=== PATIENT | female | born 1945 | race Caucasian/White ===

== ENCOUNTER 2016-10-16 14:58 | Inpatient (IN) | payer OTHER ==
[~2016-10-16] VITALS: Ht 165.1 cm; Wt 86.1 kg
[~2016-10-16 14:58] MED LIST: CELE200C PO; CYCL10TA2 PO; FLUT16SP NS; HYDR-2758 PO; LISI40TA PO; SERT50TA PO
--- NOTE | 2016-10-16 16:11 | RAD ---
Nasal bone series 10/16/2016 Clinical history: Syncope. Fall on face. PA and bilateral lateral digital radiographs of the nasal bone were obtained. A slightly comminuted mildly depressed fracture of the distal nasal bone is seen. The maxillary sinuses are well aerated and are clear. The maxillary spine is intact. Impression: Comminuted fracture of the distal nasal bone.
--- NOTE | 2016-10-16 16:12 | RAD ---
Exam performed: One view chest and x-ray nasal bones. Indication: syncope Date of Service: 10/16/2016 5:34 PM Comparison: Two-view chest from 06/20/14. Single AP upright portable view chest findings: Cardiomediastinal silhouette is within limits of normal. No acute infiltrates, effusion or pneumothorax is detected. The bony structures are normal. Impression: No acute cardiopulmonary process is detected. End impression X-ray nasal bones findings: AP and lateral views of both nasal bones is performed. Minimally displaced fractures bilateral nasal bones, greater on the right. The bony orbital margins and the paranasal sinuses are clear. Impression: Minimally displaced bilateral nasal bone fractures.
[2016-10-16] MEDS ORDERED: MORPHINE SULFATE 4 MG/ML DISP.SYRIN. IM ONE ×2 (16:30→19:45)
[2016-10-16 16:38] LABS: BASO # 0.5 x10^3/uL (0.0-0.2); BASO % 0 % (0-3); EOS % 0 % (0-3); HEMATOCRIT 39.6 % (36.0-47.0); HEMOGLOBIN 12.5 g/dL (12.0-15.5); LYMPH # 91.4 x10^3/uL (1.0-4.8); MEAN CORPUSCULAR HEMOGLOBIN 30 pg (25-35); MEAN CORPUSCULAR HGB CONC 32 g/dL (31-37); MEAN CORPUSCULAR VOLUME 94 fL (79-100); MONO % 1 % (0-9); NEUT % 12 % (31-73); PLATELET COUNT 211 x10^3/uL (140-400); RED BLOOD COUNT 4.19 x10^6/uL (3.50-5.40); RED CELL DISTRIBUTION WIDTH 15.5 % (11.5-14.5)
[2016-10-16 16:47] LABS: WHITE BLOOD COUNT 105.5 x10^3/uL (4.0-11.0)
[2016-10-16 16:59] LABS: CREATININE 1.2 mg/dL (0.6-1.0); POTASSIUM 4.4 mmol/L (3.5-5.1)
[2016-10-16 17:16] LABS: PLT ESTIMATE ADEQUATE (ADEQUATE); SMUDGE CELLS PRESENT
--- NOTE | 2016-10-16 17:18 | PHYS DOC ---
Past Medical History Past Medical History: Anxiety, Cancer, Depression, High Cholesterol, Hypertension Additional Past Medical Histor: CLL Past Surgical History: Hysterectomy Additional Past Surgical Histo: bladder rx x 2, cyst removal- finger, R shoulder Alcohol Use: None Drug Use: None Adult General Chief Complaint Chief Complaint: SYNCOPE HPI HPI Patient is a 71 year old female who presents with complaints of syncopal episode. Patient complains of head pain and neck pain vital artery pain and pain in the nose and the lips. Patient has been having a headache that is similar to previous didn't have a not an exacerbation prior to syncopal episode , she also denied chest pain neck pain back pain or abdominal pain prior to falling. Patient has a history of leukemia but is not currently in treatment, her WBC has recently ranged from 80 to 90K. Patient has a history of previous syncopal episodes but has not had one for over a year. No recent illnesses no recent changes in medication. Pt not aware of having abnormal ekgs. Review of Systems Review of Systems Constitutional: Denies fever or chills [] Eyes: Denies change in visual acuity, redness, or eye pain [] HENT: Yes to head, neck,and nasal pain Respiratory: Denies cough or shortness of breath [] Cardiovascular: No additional information not addressed in HPI [] GI: Denies abdominal pain, nausea, vomiting, bloody stools or diarrhea [] : Denies dysuria or hematuria [] Musculoskeletal: Denies back pain or joint pain. Yesterday pain Integument: Denies rash or skin lesions [] Neurologic: Yes to headache. No focal weakness or sensory changes [] Endocrine: Denies polyuria or polydipsia [] Current Medications Current Medications Current Medications Medications (Trade) Dose Ordered Sig/[facility] Start Time Stop Time Status Last Admin Dose Admin Lidocaine/ Epinephrine (Let Topical) 3 ml 1X ONCE 10/16/16 18:15 10/16/16 18:16 DC Morphine Sulfate 2 mg 1X ONCE 10/16/16 18:15 10/16/16 18:17 DC 10/16/16 18:24 2 MG Ondansetron HCl (Zofran) 4 mg 1X ONCE 10/16/16 17:45 10/16/16 17:46 DC 10/16/16 17:44 4 MG Tetanus/ Diphtheria Toxoids (Tenivac Syringe) 0.5 ml ONCE ONCE 10/16/16 19:15 8/30/17 19:16 DC Allergies Allergies Allergies Coded Allergies Type Severity Reaction Last Updated Verified No Known Drug Allergies 07/01/14 No Physical Exam Physical Exam Constitutional: Well developed, well nourished, no acute distress, non-toxic appearance. [] HENT: Normocephalic, bilateral external ears normal, oropharynx moist, no oral exudates. No signs of basilar skull fracture. Swelling of the nose with superficial abrasion, no septal hematoma. Swelling of the upper lip with loss of tissue secondary to laceration. Eyes: PERRLA, EOMI, conjunctiva normal, no discharge. [] Neck: Normal range of motion, mild diffuse tenderness, supple, no stridor. [] Cardiovascular:Heart rate regular rhythm, no murmur, normal perfusion. Tenderness to palpation of the lower chest wall bilaterally Lungs & Thorax: Bilateral breath sounds clear to auscultation, no tachypnea Abdomen: Bowel sounds normal, soft, no tenderness, no masses, no pulsatile masses. [] Skin: Warm, dry, no erythema, no rash. [] Back: No tenderness, no CVA tenderness. [] Extremities: No tenderness, no cyanosis, no signs of DVT ROM intact, no edema. [ ] Neurologic: Alert and oriented X 3, normal motor function, no focal deficits noted. [] Psychologic: Affect normal, judgement normal, mood normal. [] Current Patient Data Vital Signs Vital Signs Date Time Temp Pulse Resp B/P (MAP) Pulse Ox O2 Delivery O2 Flow Rate FiO2 10/16/16 18:20 77 137/64 (88) Room Air 10/16/16 17:39 93 10/16/16 16:55 22 10/16/16 15:08 98.4 98.4 Lab Values Laboratory Tests Test 10/16/16 16:20 10/16/16 18:13 White Blood Count 105.5 x10^3/uL (4.0-11.0) *H Red Blood Count 4.19 x10^6/uL (3.50-5.40) Hemoglobin 12.5 g/dL (12.0-15.5) Hematocrit 39.6 % (36.0-47.0) Mean Corpuscular Volume 94 fL (79-100) Mean Corpuscular Hemoglobin 30 pg (25-35) Mean Corpuscular Hemoglobin Concent 32 g/dL (31-37) Red Cell Distribution Width 15.5 % (11.5-14.5) H Platelet Count 211 x10^3/uL (140-400) Neutrophils (%) (Auto) 12 % (31-73) L Lymphocytes (%) (Auto) 87 % (24-48) H Monocytes (%) (Auto) 1 % (0-9) Eosinophils (%) (Auto) 0 % (0-3) Basophils (%) (Auto) 0 % (0-3) Neutrophils # (Auto) 12.3 x10^3uL (1.8-7.7) H Lymphocytes # (Auto) 91.4 x10^3/uL (1.0-4.8) H Monocytes # (Auto) 1.2 x10^3/uL (0.0-1.1) H Eosinophils # (Auto) 0.2 x10^3/uL (0.0-0.7) Basophils # (Auto) 0.5 x10^3/uL (0.0-0.2) H Segmented Neutrophils % 10 % (35-66) L Band Neutrophils % 1 % (0-9) Lymphocytes % 89 % (24-48) H Smudge Cells Present Platelet Estimate Adequate (ADEQUATE) Sodium Level 140 mmol/L (136-145) Potassium Level 4.4 mmol/L (3.5-5.1) Chloride Level 105 mmol/L (98-107) Carbon Dioxide Level 25 mmol/L (21-32) Anion Gap 10 (6-14) Blood Urea Nitrogen 18 mg/dL (7-20) Creatinine 1.2 mg/dL (0.6-1.0) H Estimated GFR (Cockcroft-Gault) 44.0 Glucose Level 149 mg/dL (70-99) H Calcium Level 9.0 mg/dL (8.5-10.1) Troponin I Quantitative < 0.017 ng/mL (0.000-0.055) Urine Collection Type Unknown Urine Color Yellow Urine Clarity Clear Urine pH 5.0 Urine Specific [place] >=1.030 Urine Protein Negative mg/dL (NEG-TRACE) Urine Glucose (UA) Negative mg/dL (NEG) Urine Ketones (Stick) Negative mg/dL (NEG) Urine Blood Negative (NEG) Urine Nitrite Negative (NEG) Urine Bilirubin Small (NEG) Urine Urobilinogen Dipstick 0.2 mg/dL (0.2 mg/dL) Urine Leukocyte Esterase Small (NEG) Urine RBC 0 /HPF (0-2) Urine WBC 1-4 /HPF (0-4) Urine Squamous Epithelial Cells Few /LPF Urine Bacteria 0 /HPF (0-FEW) Urine Mucus Mod /LPF Laboratory Tests 10/16/16 16:20 Laboratory Tests 10/16/16 16:20 EKG EKG 1510 83, sinus rhythm, no STEMI, T-wave inversions V3 and V4 V5 [] Radiology/Procedures Radiology/Procedures [] Course & Med Decision Making Course & Med Decision Making Indication: Laceration over the bridge of nose and laceration of the upper lip Procedure: The patient was placed in the appropriate position and anesthesia around the wound was provided with L ET. The area was then CLEANSED/DEBRIDED, moderate irrigation. The laceration #1 at the nose was linear approximately 1 cm in length and closed with 2 sutures of 6 nylon. Laceration #2 is at the upper lip and he was in a regular in complicated laceration, it was complicated be because of loss of tissue and macerated tissue, 4 stitches were put in place The wound area was then cleaned. Total repaired wound length: 1 cm linear and one and 2 cm irregular Other Items: I have very extensive discussion with the patient regarding her upper lip laceration. I explained to the patient that I was unable to guarantee that there would be good alignment of the vermilion border and also could not be sure that the tissue that was used inrepair will survive. I explained to the patient that there was a high likelihood that she may need corrective plastic surgery at a later date. Patient states that she is not very concern about it as she only has 4 years to live but hope for the best at this time. The patient tolerated the procedure well Complications: No complications.Pertinent Labs and Imaging studies reviewed. ( See chart for details) Total time: 25 minutes. [] Dragon Disclaimer Dragon Disclaimer This electronic medical record was generated, in whole or in part, using a voice recognition dictation system. Departure Departure Impression: Primary Impression: Abnormal EKG Additional Impressions: Syncope Leukemia Facial laceration Nasal fracture Head injury Disposition: 09 ADMITTED INPATIENT Admitting Physician: Ling Acuna Condition: STABLE Referrals: ROLA PINTO MD (PCP) Problem Qualifiers Odell CLEMENT MD Oct 16, 2016 17:18
--- NOTE | 2016-10-16 17:28 | RAD ---
EXAM: Head and cervical spine CT without contrast. HISTORY: Syncope. TECHNIQUE: Computed tomographic images of the head and cervical spine were obtained without contrast. *One or more of the following individualized dose reduction techniques were utilized for this examination: 1. Automated exposure control. 2. Adjustment of the mA and/or kV according to patient size. 3. Use of iterative reconstruction technique. COMPARISON: None. FINDINGS: Head: There is no hemorrhage. There is no mass effect or midline shift. There is no hydrocephalus. There is mild age-appropriate cerebral volume loss. There are subtle areas of hypodensity within the cerebral white matter, a nonspecific finding likely due to chronic small vessel disease. There are findings consistent with lens surgery. There is mild ethmoid sinus mucosal thickening. There is a suspected posterior scalp contusion. No fracture is seen. Cervical spine: There is no significant listhesis. The vertebral bodies are normal in height and the disc spaces are preserved. There is facet arthropathy at the lower cervical levels. There are pathologically enlarged lymph nodes throughout the bilateral neck. At C2-C3, there is a posterior central disc protrusion. There is no stenosis. At C3-C4, there is a disc bulge. There is no stenosis. At C4-C5, there is a disc bulge. There is mild facet arthropathy. There is no stenosis. At C5-C6, there is a disc bulge and endplate remodeling. There is mild left facet arthropathy. There is no stenosis At C6-C7, there is a disc bulge. There is no stenosis. IMPRESSION: 1. No acute intracranial finding or evidence of acute cervical spine trauma. 2. Subtle areas of hypodensity within the cerebral white matter, likely due to chronic small vessel disease. 3. Mild degenerative changes of the cervical spine, described above. 4. Bilateral neck lymphadenopathy. Correlate for underlying etiologies such as lymphoma. 5. Possible posterior scalp contusion. Electronically signed by: Gladys Crawford MD (10/16/2016 5:25 PM) [facility]
[2016-10-16] MEDS ORDERED: ONDANSETRON PF 4 MG/2 ML VIAL. ONE (17:39)
[2016-10-16] MEDS ORDERED: ONDANSETRON PF 4 MG/2 ML VIAL. IV ONE (17:45)
[2016-10-16] MEDS ORDERED: MORPHINE SULFATE 2 MG/ML DISP.SYRIN. IV ONE (18:15)
[2016-10-16] MEDS ORDERED: LIDOCAINE/EPI/TETRACAINE TOPICAL GEL 3 ML. TP ONE ×2 (18:15)
[2016-10-16 18:28] LABS: BILIRUBIN,URINE SMALL (NEG); GLUCOSE,URINE NEGATIVE (NEG); NITRITE,URINE NEGATIVE (NEG); PROTEIN,URINE NEGATIVE (NEG-TRACE); UROBILINOGEN,URINE 0.2 mg/dL (0.2 mg/dL)
[2016-10-16 18:32] LABS: RBC,URINE 0 /HPF (0-2)
[2016-10-16 18:33] LABS: BACTERIA,URINE 0 /HPF (0-FEW); SQUAMOUS EPITHELIAL CELL,UR FEW /LPF
[2016-10-16] MEDS ORDERED: TETANUS AND DIPHTHERIA TOX/PF 0.5 ML DISP.SYRIN. VAX IM ONE (19:15)
[2016-10-16] MEDS ORDERED: ACETAMINOPHEN 325 MG TABLET. PO PRN (19:30)
[2016-10-16] MEDS ORDERED: MORPHINE SULFATE 2 MG/ML DISP.SYRIN. IV PRN (19:30)
[2016-10-16] MEDS ORDERED: ONDANSETRON PF 4 MG/2 ML VIAL. IV PRN (19:30)
[2016-10-16] MEDS ORDERED: MORPHINE SULFATE 4 MG/ML DISP.SYRIN. IV ONE ×2 (19:45)
[2016-10-16] MEDS ORDERED: SUMAtriptan SUCCINATE 25 MG TABLET PO PRN (21:15)
[2016-10-16] MEDS ORDERED: HYDROcodone/APAP 5/325MG 1 TAB TABLET PO PRN (21:15)
[2016-10-16 21:41] VITALS: BP 136/52
[2016-10-16] MEDS ORDERED: CYCLOBENZAPRINE 10 MG TABLET. PO PRN (22:15)
--- NOTE | 2016-10-16 22:43 | PDOC1 ---
History and Physical Date of Admission Date of Admission DATE: 10/16/16 TIME: 22:43 History of Present Illness History of Present Illness Ms. Barton is a 71 year old female who presents with complaints of syncopal episode. Patient complains of head pain and neck pain vital artery pain and pain in the nose and the lips. Patient has been having a headache that is similar to previous didn't have a not an exacerbation prior to syncopal episode , she also denied chest pain neck pain back pain or abdominal pain prior to falling. Patient has a history of leukemia but is not currently in treatment, her WBC has recently ranged from 80 to 90K. Patient has a history of previous syncopal episodes but has not had one for over a year. No recent illnesses no recent changes in medication. Pt not aware of having abnormal ekgs. Current Problem List Problem List Problems Medical Problems: (1) Abnormal EKG Status: Acute (2) Facial laceration Status: Acute (3) Head injury Status: Acute (4) Leukemia Status: Acute (5) Nasal fracture Status: Acute (6) Syncope Status: Acute Problems: Current Medications Current Medications Current Medications Morphine Sulfate 4 mg 1X ONCE IM Last administered on 10/16/16 16:55; Start 10/16/16 at 16:30; Stop 10/16/16 at 16:31; Status DC Ondansetron HCl (Zofran) 4 mg STK-MED ONCE .ROUTE ; Start 10/16/16 at 17:39; Stop 10/16/16 at 17:40; Status DC Ondansetron HCl (Zofran) 4 mg 1X ONCE IV Last administered on 10/16/16 17:44 ; Start 10/16/16 at 17:45; Stop 10/16/16 at 17:46; Status DC Lidocaine/ Epinephrine (Let Topical) 3 ml 1X ONCE TP Last administered on 10/16 18:22; Start 10/16/16 at 18:15; Stop 10/16/16 at 18:16; Status DC Lidocaine/ Epinephrine (Let Topical) 3 ml 1X ONCE TP ; Start 10/16/16 at 18:15 ; Stop 10/16/16 at 18:16; Status DC Morphine Sulfate 2 mg 1X ONCE IV Last administered on 10/16/16 18:24; Start 10/16/16 at 18:15; Stop 10/16/16 at 18:17; Status DC Tetanus/ Diphtheria Toxoids (Tenivac Syringe) 0.5 ml ONCE ONCE VAX IM Last administered on 10/16/16 19:51; Start 10/16/16 at 19:15; Stop 10/16/16 at 19:16 ; Status DC Ondansetron HCl (Zofran) 4 mg PRN Q8HRS PRN IV NAUSEA/VOMITING; Start 10/16/16 at 19:30; Stop 10/17/16 at 19:29 Morphine Sulfate 2 mg PRN Q2HR PRN IV PAIN; Start 10/16/16 at 19:30; Stop 10/17 at 19:29 Acetaminophen (Tylenol) 650 mg PRN Q4HRS PRN PO FEVER; Start 10/16/16 at 19:30 ; Stop 10/17/16 at 19:29 Morphine Sulfate 4 mg 1X ONCE IM ; Start 10/16/16 at 19:45; Stop 10/16/16 at 19 :46; Status DC Morphine Sulfate 4 mg 1X ONCE IV Last administered on 10/16/16 19:49; Start 10/16/16 at 19:45; Stop 10/16/16 at 19:46; Status DC Morphine Sulfate 4 mg 1X ONCE IV ; Start 10/16/16 at 19:45; Stop 10/16/16 at 19 :46; Status DC Celecoxib (CeleBREX) 200 mg DAILY PO ; Start 10/17/16 at 09:00 Cyclobenzaprine HCl (Flexeril) 10 mg TID PO ; Start 10/16/16 at 22:00 Fluticasone Propionate (Flonase) 1 spray DAILY NS ; Start 10/17/16 at 09:00 Acetaminophen/ Hydrocodone Bitart (Lortab 5/325) 1 tab PRN Q4HRS PRN PO SEVERE PAIN; Start 10/16/16 at 21:15 Lisinopril (Prinivil) 40 mg DAILY PO ; Start 10/17/16 at 09:00 Sertraline HCl (Zoloft) 50 mg DAILY PO ; Start 10/17/16 at 09:00 Sumatriptan Succinate (Imitrex) 25 mg PRN Q2HR PRN PO MIGRAINE HEADACHE; Start 10/16/16 at 21:15 Cyclobenzaprine HCl (Flexeril) 10 mg PRN Q6HRS PRN PO MUSCLE SPASMS; Start at 22:15; Status UNV Active Scripts Active Reported Zoloft (Sertraline Hcl) 50 Mg Tablet 50 Mg PO DAILY Lisinopril 40 Mg Tablet 40 Mg PO DAILY Hydrocodone-Apap 5-325 (Hydrocodone Bit/Acetaminophen) 1 Each Tablet 1 Tab PO Q4HRS PRN Fluticasone Propionate Nasal [place] (Fluticasone Propionate) 16 Gm [place].susp 1 [place] NS DAILY Cyclobenzaprine Hcl 10 Mg Tablet 10 Mg PO TID Celebrex (Celecoxib) 200 Mg Capsule 200 Mg PO DAILY 30 Days Allergies Allergies: Coded Allergies: No Known Drug Allergies (Unverified , 07/01/14) Vitals Vitals Vital Signs Date Time Temp Pulse Resp B/P (MAP) Pulse Ox O2 Delivery O2 Flow Rate FiO2 10/16/16 21:49 Room Air 10/16/16 21:41 99.3 86 20 136/52 (80) 100 99.3 10/16/16 20:57 2.0 Labs Labs Laboratory Tests Test 10/16/16 16:20 10/16/16 18:13 White Blood Count 105.5 x10^3/uL (4.0-11.0) Red Blood Count 4.19 x10^6/uL (3.50-5.40) Hemoglobin 12.5 g/dL (12.0-15.5) Hematocrit 39.6 % (36.0-47.0) Mean Corpuscular Volume 94 fL (79-100) Mean Corpuscular Hemoglobin 30 pg (25-35) Mean Corpuscular Hemoglobin Concent 32 g/dL (31-37) Red Cell Distribution Width 15.5 % (11.5-14.5) Platelet Count 211 x10^3/uL (140-400) Neutrophils (%) (Auto) 12 % (31-73) Lymphocytes (%) (Auto) 87 % (24-48) Monocytes (%) (Auto) 1 % (0-9) Eosinophils (%) (Auto) 0 % (0-3) Basophils (%) (Auto) 0 % (0-3) Neutrophils # (Auto) 12.3 x10^3uL (1.8-7.7) Lymphocytes # (Auto) 91.4 x10^3/uL (1.0-4.8) Monocytes # (Auto) 1.2 x10^3/uL (0.0-1.1) Eosinophils # (Auto) 0.2 x10^3/uL (0.0-0.7) Basophils # (Auto) 0.5 x10^3/uL (0.0-0.2) Segmented Neutrophils % 10 % (35-66) Band Neutrophils % 1 % (0-9) Lymphocytes % 89 % (24-48) Smudge Cells Present Platelet Estimate Adequate (ADEQUATE) Sodium Level 140 mmol/L (136-145) Potassium Level 4.4 mmol/L (3.5-5.1) Chloride Level 105 mmol/L (98-107) Carbon Dioxide Level 25 mmol/L (21-32) Anion Gap 10 (6-14) Blood Urea Nitrogen 18 mg/dL (7-20) Creatinine 1.2 mg/dL (0.6-1.0) Estimated GFR (Cockcroft-Gault) 44.0 Glucose Level 149 mg/dL (70-99) Calcium Level 9.0 mg/dL (8.5-10.1) Troponin I Quantitative < 0.017 ng/mL (0.000-0.055) Urine Collection Type Unknown Urine Color Yellow Urine Clarity Clear Urine pH 5.0 Urine Specific [place] >=1.030 Urine Protein Negative mg/dL (NEG-TRACE) Urine Glucose (UA) Negative mg/dL (NEG) Urine Ketones (Stick) Negative mg/dL (NEG) Urine Blood Negative (NEG) Urine Nitrite Negative (NEG) Urine Bilirubin Small (NEG) Urine Urobilinogen Dipstick 0.2 mg/dL (0.2 mg/dL) Urine Leukocyte Esterase Small (NEG) Urine RBC 0 /HPF (0-2) Urine WBC 1-4 /HPF (0-4) Urine Squamous Epithelial Cells Few /LPF Urine Bacteria 0 /HPF (0-FEW) Urine Mucus Mod /LPF Laboratory Tests Test 10/16/16 16:20 10/16/16 18:13 White Blood Count 105.5 x10^3/uL (4.0-11.0) Red Blood Count 4.19 x10^6/uL (3.50-5.40) Hemoglobin 12.5 g/dL (12.0-15.5) Hematocrit 39.6 % (36.0-47.0) Mean Corpuscular Volume 94 fL (79-100) Mean Corpuscular Hemoglobin 30 pg (25-35) Mean Corpuscular Hemoglobin Concent 32 g/dL (31-37) Red Cell Distribution Width 15.5 % (11.5-14.5) Platelet Count 211 x10^3/uL (140-400) Neutrophils (%) (Auto) 12 % (31-73) Lymphocytes (%) (Auto) 87 % (24-48) Monocytes (%) (Auto) 1 % (0-9) Eosinophils (%) (Auto) 0 % (0-3) Basophils (%) (Auto) 0 % (0-3) Neutrophils # (Auto) 12.3 x10^3uL (1.8-7.7) Lymphocytes # (Auto) 91.4 x10^3/uL (1.0-4.8) Monocytes # (Auto) 1.2 x10^3/uL (0.0-1.1) Eosinophils # (Auto) 0.2 x10^3/uL (0.0-0.7) Basophils # (Auto) 0.5 x10^3/uL (0.0-0.2) Segmented Neutrophils % 10 % (35-66) Band Neutrophils % 1 % (0-9) Lymphocytes % 89 % (24-48) Smudge Cells Present Platelet Estimate Adequate (ADEQUATE) Sodium Level 140 mmol/L (136-145) Potassium Level 4.4 mmol/L (3.5-5.1) Chloride Level 105 mmol/L (98-107) Carbon Dioxide Level 25 mmol/L (21-32) Anion Gap 10 (6-14) Blood Urea Nitrogen 18 mg/dL (7-20) Creatinine 1.2 mg/dL (0.6-1.0) Estimated GFR (Cockcroft-Gault) 44.0 Glucose Level 149 mg/dL (70-99) Calcium Level 9.0 mg/dL (8.5-10.1) Troponin I Quantitative < 0.017 ng/mL (0.000-0.055) Urine Collection Type Unknown Urine Color Yellow Urine Clarity Clear Urine pH 5.0 Urine Specific [place] >=1.030 Urine Protein Negative mg/dL (NEG-TRACE) Urine Glucose (UA) Negative mg/dL (NEG) Urine Ketones (Stick) Negative mg/dL (NEG) Urine Blood Negative (NEG) Urine Nitrite Negative (NEG) Urine Bilirubin Small (NEG) Urine Urobilinogen Dipstick 0.2 mg/dL (0.2 mg/dL) Urine Leukocyte Esterase Small (NEG) Urine RBC 0 /HPF (0-2) Urine WBC 1-4 /HPF (0-4) Urine Squamous Epithelial Cells Few /LPF Urine Bacteria 0 /HPF (0-FEW) Urine Mucus Mod /LPF BLAKE VERA MD Oct 16, 2016 22:43
[2016-10-16] MEDS: CYCLOBENZAPRINE 10 MG TABLET. PO SCH (23:24)
[2016-10-16] MEDS ORDERED: AMLO10TA2 PO (23:26)
[2016-10-17 01:49] LABS: CALCIUM 8.5 mg/dL (8.5-10.1); CREATININE 1.3 mg/dL (0.6-1.0); GFR 40.2; POTASSIUM 3.8 mmol/L (3.5-5.1)
[2016-10-17 02:07] LABS: BASO # 0.2 x10^3/uL (0.0-0.2); BASO % 0 % (0-3); EOS % 0 % (0-3); HEMATOCRIT 37.9 % (36.0-47.0); HEMOGLOBIN 11.8 g/dL (12.0-15.5); LYMPH # 98.7 x10^3/uL (1.0-4.8); LYMPH % 89 % (24-48); MEAN CORPUSCULAR HEMOGLOBIN 30 pg (25-35); MEAN CORPUSCULAR HGB CONC 31 g/dL (31-37); MEAN CORPUSCULAR VOLUME 95 fL (79-100); MONO % 2 % (0-9); NEUT % 9 % (31-73); PLATELET COUNT 197 x10^3/uL (140-400); RED BLOOD COUNT 3.98 x10^6/uL (3.50-5.40); RED CELL DISTRIBUTION WIDTH 15.5 % (11.5-14.5)
[2016-10-17 03:06] VITALS: BP 108/56
--- NOTE | 2016-10-17 03:59 | ACF ---
Admission Forms Criteria CARDIOLOGY GRG Clinical Indications for Admission to Inpatient Care ( [place]/check or initial the applicable condition/criteria) Hospital admission is needed for appropriate care of the patient because of ANY ONE of the following: [ ] I. Hemodynamic instability as indicated by ALL of the following (1)(2)(3) (4)(5)(6)(7)(8)(9)(10) [ ]a) Vital sign abnormality not readily corrected by appropriate treatment with 12-24 hours for ANY ONE: [ ]i) Hypotension that persists despite appropriate treatment (eg, volume repletion) [ ]ii) Tachycardiathat persists despite appropriate tx ( e.g., analgesia, fluids, sedation as indicated [ ]iii) Orthostatic vital sign changes that persists despite appropriate treatment (eg, volume repletion) [ ]b) Vital sign abnormailty that is severe indicated by ANY ONE of the following: [ ]i) Inadequate perfusion indicated by ANY ONE of the following: [ ] 1) Lactic acidosis (> 2 mmol/L) [ ] 2) New abnormal capillary refill (> 3 seconds) [ ] 3) Reduced urine output [ ] 4) New altered mental status [ ] 5) Myocardial Ischemia [ ] 6) Other metabolic acidosis (arterial pH <7.35 ) not otherwise explained. [ ]ii) Mean arterial pressure[A] less than 60 mm Hg [ ]iii) Mean arterial pressure[A] less than 70 mm Hg after 30 minutes of appropriate treatment (eg, fluid resuscitation) [ ]iv) Sustained heart rate greater than 120 beats per minute in adult or child 6 years or older[B] [ ]v) IV inotropic or vasopressor medication required to maintain adequate blood pressure or perfusion [ ] II. Severe heart failure as indicated by ANY ONE of the following(17)(18) [ ]a) Respiratory distress [ ]b) Hypotension [ ]c) Debilitating anasarca refractory to therapy (eg, tissue breakdown with infection)[C](19) [ ]d) Cardiac arrhythmias of immediate concern [ ]e) Myocardial ischemia [ ] III. Cardiac arrhythmias or findings of immediate concern indicated by ANY ONE of the following (21)(22): [ ] a) Heart rhythms that are inherently dangerous or unstable indicated by ANY ONE of the following (23)(24)(25): [ ] i) Resuscitated ventricular fibrillation or cardiac arrest [ ] ii) Ventricular escape rhythm [ ] iii) Sustained ventricular tachycardia (30 seconds or more of ventricular rhythm at greater than 100 beats per minute) [ ] iv) Nonsustained ventricular tachycardia and ANY ONE of the following: [ ] 1) Suspected cardiac ischemia as cause or consequence of ventricular tachycardia [ ] 2) Acute myocarditis [ ] b) Unstable cardiac conduction defects indicated by ANY ONE of the following(25)(26)(27) [ ] i) Type II second-degree atrioventricular block [ ]ii) Third-degree atrioventricular block [ ]iii) New-onset left bundle branch block with suspected myocardial ischemia [ ]c) Any heart rhythm and ANY ONE of the following (23)(24)(28)(29) (30) [ ] i) Continuous long-term ECG monitoring needed (e.g., initiation of drug requiring monitoring for more than 24 hours) [ ] ii) Patient has automatic implanted cardioverter defibrillator that is repeatedly firing, malfunctioning, or in need of immediate adjustment of settings beyond the scope of ambulatory or observation care [ ]d) Heart rhythms of concern due to ANY ONE of the following: [ ] i) Hypotension [ ] ii) Respiratory distress [ ] iii) Association with other significant symptoms (e.g., bradycardia with syncope or ongoing dizziness, supraventricular tachycardia with chest pain (28)(29)(31) [ ] IV. Monitoring for cardiac contusion beyond the scope of observation care needed [A](32)(33)(34) [ ] V. Surgical or device complication (e.g., valve replacement complication , ICD disfunction or pacemaker dysfunction) (49)(50)(51)(52)(53)(54) [ ] . Inpatient palliative care needed. [F](51)(52) Also use Inpatient Palliative Care Criteria [ ] VII. Nonbacterial thrombotic (marantic) endocarditis(43)(44)(55)(56)(57) [X] VIII. Cardiology condition, symptom, or finding for which emergency and observation care has failed or are not considered appropriate. [ ] IX. Acute valvular disease requiring inpatient as indicated by ANY ONE of the following (40)(41) [ ]a) Acute valvular regurgitation (42) [ ]b) Noninfectious valvulitis (43)(44) [ ]c) Obstructive valve thrombosis (45)(46) [ ]d) Paravalvular leak(47)(48) [ ]e) Other significant valvular disorder remaining after emergency or observation level of care (as appropriate) [ ]X. Pericardial disease requiring inpatient treatment as indicated by ANY ONE of the following (35)(36)(37)(38) [ ]a) Suspected tamponade [ ]b) Hemopericardium [ ]c) Other significant pericardial disorder remaining after emergency or observation level of care (as appropriate)(39) [ ] XI. Cardiac ischemia beyond scope of emergency and observation care. [ ] XII. Cyanotic heart disease requiring inpatient care as indicated by 1 or more of the following(58)(59)(60): [ ]a) Acute onset of hypoxemia [ ]b) Exacerbation [ ] XIII. Hypertension requiring inpatient treatment as indicated by ANYONE of the following(11)(12)(13)(14): [ ]a) Severe hypertension (SBP greater than 180 mm Hg or DBP greater than 110 mm Hg, or greater than the 95th percentile for age, gender, and height in pediatric patients) that cannot be controlled (eg, to SBP less than 160 mm Hg and DBP less than 100 mm Hg) by emergency department or observation care treatment(15) [ ]b) Acute end organ damage secondary to hypertension (SBP greater than 140 mm Hg or DBP greater than 90 mm Hg) as indicated by ANYONE of the following: [ ] i) Hypertensive encephalopathy (eg, Altered mental status)(16) [ ] ii) Cerebral infarction [ ] iii) Intracranial hemorrhage [ ] iv) Myocardial ischemia or infarction [ ] v) Heart failure (eg, pulmonary edema) [ ] vi) Aortic dissection [ ] vii) Increased creatinine (new) with reduction of more than 50% in estimated glomerular filtration rate from baseline [ ] viii) Papilledema [ ] ix) Retinal hemorrhage [ ] x) Microangiopathic hemolytic anemia [ ] xi) Seizure [ ] xii) Other significant finding secondary to hypertension [ ] XIV. Complications of transplanted heart indicated by ANY ONE of the following(61): [ ]a) Acute graft rejection requiring inpatient management (eg, intravenous imunosuppression)(62)(63) [ ]b) Acute graft heart failure indicated by ANY ONE of the following(64): [ ] i) Hemodynamic instability [ ] ii) Cardiac arrhythmias of immediate concern [ ] iii) Pulmonary edema that is very severe (eg, mechanical ventilation needed, imminent or likely, need for 100% oxygen to keep oxygen saturation above 90%) [ ] iv) Pulmonary edema that is persistent as indicated by ALL of the following: [ ] 1) New need for oxygen therapy to keep oxygen saturation above 90 % (or increased FiO2 need from baseline) [ ] 2) Has not improved sufficiently with emergency department or observation care IV diuretics or other heart failure treatments[E]. [ ] iv) Altered mental status that is severe or persistent [ ] iv) Increased creatinine (new on laboratory test) with reduction of more than 50% in estimated glomerular filtration rate from baseline [ ] iv) Progressively (ongoing) rising creatinine (known from past laboratory test) with reduction of more than 25% in estimated glomerular filtration rate from baseline [ ] iv) Acute renal failure [ ] iv) Acute peripheral ischemia (eg, examination shows pulseless, cool, mottled, or cyanotic extremity) [ ] iv) Pulmonary artery catheter monitoring needed [ ] iv) Other sign or symptom of heart failure requiring inpatient treatment (ie, too severe or not responsive to outpatient and observation care treatment) [ ]c) Infection requiring inpatient management (eg, Hemodynamic instability, need for intravenous antimicrobial treatment)(66)(67)(68)(69)(70) [ ]d) Cardiac allograft vasculopathy requiring inpatient management (eg evidence of cardiacischemia)(71) [ ]e) Other complication of transplanted heart (eg, stroke, severe pulmonary hypertension, severe valvular dysfunction) requiring inpatient management(72) The original [facility] content created by [facility] has been revised. The portions of the content which have been revised are identified through the use of italic text, and [facility] has neither reviewed nor approved the modified material. All other unmodified content is copyright [facility]. Please see references footnoted in the original [facility] edition 2014 Admission Criteria Met?: Yes DARNELL IRELAND Oct 17, 2016 03:59
[2016-10-17 04:30] LABS: WHITE BLOOD COUNT 111.1 x10^3/uL (4.0-11.0)
[2016-10-17 07:00] VITALS: BP 122/61
--- NOTE | 2016-10-17 08:11 | RAD ---
Exam performed: Single view chest and[ bilateral] rib series. History: [Patient fell today, syncopal episode,. Bilateral chest Date of service:[ 10/16/16] . Comparison: [None available]. Findings: AP and oblique radiographs of [ bilateral] ribs reveal the osseous structures to be well aligned and apparently intact. Evidence of fracture is absent. There is no pleural effusion or pneumothorax. As visualized, the underlying pulmonary anatomy appears unremarkable. Impression: Radiographically normal ribs.
--- NOTE | 2016-10-17 08:34 | EKG ---
[facility] [address] [place] [address] Test Date: 2016-10-16 Test Time: 15:09:14 Pat Name: JOSELIN TEJEDA Department: Room: 586 1 Gender: F Research And Development Manager: : 1945 Requested By: BRANDO DANIEL Order Number: [id number] Reading MD: Panda Cabrera Measurements Intervals [place] Rate: 83 P: 22 KS: 148 QRS: -1 QRSD: 74 T: -21 QT: 346 QTc: 407 Interpretive Statements SINUS RHYTHM NON-SPECIFIC ST/T CHANGES Electronically Signed On 10-22-2016 8:36:58 CDT by Panda Cabrera
[2016-10-17] MEDS: FLUTICASONE 50MCG/NASAL SPRAY 16GM BOTTLE. NS SCH (09:00)
[2016-10-17] MEDS ORDERED: DOCUSATE SODIUM 100 MG CAPSULE. PO PRN (09:15)
[2016-10-17] MEDS ORDERED: hydrALAZINE 20 MG/ML VIAL. IVP PRN (09:15)
[2016-10-17] MEDS ORDERED: MORPHINE SULFATE 2 MG/ML DISP.SYRIN. IV PRN (09:15)
[2016-10-17] MEDS ORDERED: traMADol 50 MG TABLET PO PRN (09:15)
[2016-10-17] MEDS ORDERED: ACETAMINOPHEN 325 MG TABLET. PO PRN (09:15)
[2016-10-17] MEDS ORDERED: ONDANSETRON PF 4 MG/2 ML VIAL. IV PRN (09:15)
--- NOTE | 2016-10-17 09:45 | RAD ---
Exam performed: Carotid Doppler. Clinical indication: Syncope Date of Service: 10/17/16. Comparison :No priors. Technique: Real-time grayscale and Doppler evaluation of the carotid system was performed and images are obtained. Color flow and spectral analysis was observed. Findings: There is mild atheromatous plaquing involving both carotid bulbs . Doppler interrogation reveals normal waveforms and velocities as follows . Peak systolic velocity within the right common carotid artery measures 132.0 cm/sec whereas on the left measures 154.0 cm/sec . The peak systolic velocity within the right ICA measures 138.0 cm/sec whereas on the left measures 109.0 cm/sec. The ICA to CCA ratio on the right measures 1.1 whereas on the left measures 0.7. There is antegrade flow in both vertebral arteries. Mildly elevated peak systolic velocities are seen in the right external carotid artery Impression: 1.Mild atheromatous plaquing involving both carotid systems without any flow-limiting stenosis. Note: Stenosis calculations for CT, MR and conventional angiography are based upon determination of the distal ICA diameter in accordance with the NASCET methodology. Stenosis calculations for doppler studies are derived from validated velocity criteria which are known to correlate with NASCET methodology of determining stenosis.
[2016-10-17] MEDS: LISINOPRIL 40 MG TABLET. PO SCH (09:54)
[2016-10-17] MEDS: CELECOXIB 200 MG CAPSULE. PO SCH (09:55)
[2016-10-17] MEDS: CYCLOBENZAPRINE 10 MG TABLET. PO SCH ×3 (09:55→20:36)
[2016-10-17] MEDS: SERTRALINE 50 MG TABLET. PO SCH (09:55)
[2016-10-17 10:45] LABS: LYMPH % 87 % (24-48)
[2016-10-17 11:00] VITALS: BP 123/53
--- NOTE | 2016-10-17 11:40 | PDOC2 ---
CARDIAC CONSULT DATE OF CONSULT Date of Consult DATE: 10/17/16 TIME: 11:33 REASON FOR CONSULT Reason for Consult: Syncope Abnormal EKG REFERRING PHYSICIAN Referring Physician: Dr. Butts SOURCE Source: Chart review, Patient HISTORY OF PRESENT ILLNESS HISTORY OF PRESENT ILLNESS This is a 71 yo female who presented secondary to syncopal episode. Patient reports having diarrhea the last couple of days. Yesterday afternoon, was doing dishes and felt nauseated. Headed to the bathroom and started to have vision changes. Started seeing black spots and subsequently passed out, sustaining laceration to upper lip and nose. Denies any associated chest pain, palpitations , diaphoresis, or nausea/vomiting. Evaluated in ED. Had multiple sutures to lip and bridge of nose. Xray notable for nasal fracture. Patient does report h/o "blackout" with at least 4 episodes in the last year. Telemetry review noted episodes of pauses and complete heart block. PAST MEDICAL HISTORY Cardiovascular: HTN, Hyperlipidemia Pulmonary: Asthma GI: Diverticulosis Heme/Onc: Other (CLL) Hepatobiliary: No pertinent hx Psych: Anxiety Musculoskeletal: Osteoarthritis Rheumatologic: No pertinent hx Infectious disease: No pertinent hx ENT: No pertinent hx Renal/: No pertinent hx Endocrine: Diabetes Dermatology: No pertinent hx PAST SURGICAL HISTORY Past Surgical History: Cataract Removal, Tonsillectomy, Hysterectomy FAMILY HISTORY Family History: Cancer, Diabetes, Heart Disease, Hypertension SOCIAL HISTORY Smoke: No ALCOHOL: none Drugs: None Lives: with Family CURRENT MEDICATIONS CURRENT MEDICATIONS Current Medications Medications (Trade) Dose Ordered Sig/Naldo Route PRN Reason Start Time Stop Time Status Last Admin Dose Admin Morphine Sulfate 4 mg 1X ONCE IM 10/16/16 16:30 10/16/16 16:31 DC 10/16/16 16:55 Ondansetron HCl (Zofran) 4 mg 1X ONCE IV 10/16/16 17:45 10/16/16 17:46 DC 10/16/16 17:44 Lidocaine/ Epinephrine (Let Topical) 3 ml 1X ONCE TP 10/16/16 18:15 10/16/16 18:16 DC 10/16/16 18:22 Morphine Sulfate 2 mg 1X ONCE IV 10/16/16 18:15 10/16/16 18:17 DC 10/16/16 18:24 Tetanus/ Diphtheria Toxoids (Tenivac Syringe) 0.5 ml ONCE ONCE VAX IM 10/16/16 19:15 10/16/16 19:16 DC 10/16/16 19:51 Morphine Sulfate 2 mg PRN Q2HR PRN IV PAIN 10/16/16 19:30 10/17/16 19:29 10/17/16 04:56 Morphine Sulfate 4 mg 1X ONCE IV 10/16/16 19:45 10/16/16 19:46 DC 10/16/16 19:49 Celecoxib (CeleBREX) 200 mg DAILY PO 10/17/16 09:00 10/17/16 09:55 Cyclobenzaprine HCl (Flexeril) 10 mg TID PO 10/16/16 22:00 10/17/16 09:55 Fluticasone Propionate (Flonase) 1 spray DAILY NS 10/17/16 09:00 10/17/16 09:00 Lisinopril (Prinivil) 40 mg DAILY PO 10/17/16 09:00 10/17/16 09:54 Sertraline HCl (Zoloft) 50 mg DAILY PO 10/17/16 09:00 10/17/16 09:55 ALLERGIES ALLERGIES: Coded Allergies: No Known Drug Allergies (Unverified , 07/01/14) ROS Review of System 14 point ROS conducted with pertinent positives noted above in HPI. PHYSICAL EXAM General: Alert, Oriented X3, Cooperative, No acute distress HEENT: Other (laceration to upper lip and bridge of nose) Lungs: Clear to auscultation, Normal air movement Heart: Regular rate, Normal S1, Normal S2, Other (tele SR) Abdomen: Soft, No tenderness Extremities: No edema, Normal pulses Skin: No breakdown, No significant lesion Neuro: Normal speech, Sensation intact Psych/Mental Status: Mental status NL, Mood NL MUSCULOSKELETAL: Osteoarthritic changes both hands VITALS VITALS Vital Signs Date Time Temp Pulse Resp B/P (MAP) Pulse Ox O2 Delivery O2 Flow Rate FiO2 10/17/16 11:00 97.8 69 18 123/53 (76) 95 Nasal Cannula 2.0 97.8 LABS Lab: Laboratory Tests Test 10/16/16 16:20 10/16/16 18:13 10/17/16 01:25 10/17/16 03:40 White Blood Count 105.5 x10^3/uL (4.0-11.0) 111.1 x10^3/uL (4.0-11.0) Red Blood Count 4.19 x10^6/uL (3.50-5.40) 3.98 x10^6/uL (3.50-5.40) Hemoglobin 12.5 g/dL (12.0-15.5) 11.8 g/dL (12.0-15.5) Hematocrit 39.6 % (36.0-47.0) 37.9 % (36.0-47.0) Mean Corpuscular Volume 94 fL (79-100) 95 fL (79-100) Mean Corpuscular Hemoglobin 30 pg (25-35) 30 pg (25-35) Mean Corpuscular Hemoglobin Concent 32 g/dL (31-37) 31 g/dL (31-37) Red Cell Distribution Width 15.5 % (11.5-14.5) 15.5 % (11.5-14.5) Platelet Count 211 x10^3/uL (140-400) 197 x10^3/uL (140-400) Neutrophils (%) (Auto) 12 % (31-73) 9 % (31-73) Lymphocytes (%) (Auto) 87 % (24-48) 89 % (24-48) Monocytes (%) (Auto) 1 % (0-9) 2 % (0-9) Eosinophils (%) (Auto) 0 % (0-3) 0 % (0-3) Basophils (%) (Auto) 0 % (0-3) 0 % (0-3) Neutrophils # (Auto) 12.3 x10^3uL (1.8-7.7) 10.2 x10^3uL (1.8-7.7) Lymphocytes # (Auto) 91.4 x10^3/uL (1.0-4.8) 98.7 x10^3/uL (1.0-4.8) Monocytes # (Auto) 1.2 x10^3/uL (0.0-1.1) 1.9 x10^3/uL (0.0-1.1) Eosinophils # (Auto) 0.2 x10^3/uL (0.0-0.7) 0.2 x10^3/uL (0.0-0.7) Basophils # (Auto) 0.5 x10^3/uL (0.0-0.2) 0.2 x10^3/uL (0.0-0.2) Segmented Neutrophils % 10 % (35-66) Band Neutrophils % 1 % (0-9) Lymphocytes % 89 % (24-48) Smudge Cells Present Platelet Estimate Adequate (ADEQUATE) Sodium Level 140 mmol/L (136-145) 141 mmol/L (136-145) Potassium Level 4.4 mmol/L (3.5-5.1) 3.8 mmol/L (3.5-5.1) Chloride Level 105 mmol/L (98-107) 105 mmol/L (98-107) Carbon Dioxide Level 25 mmol/L (21-32) 26 mmol/L (21-32) Anion Gap 10 (6-14) 10 (6-14) Blood Urea Nitrogen 18 mg/dL (7-20) 19 mg/dL (7-20) Creatinine 1.2 mg/dL (0.6-1.0) 1.3 mg/dL (0.6-1.0) Estimated GFR (Cockcroft-Gault) 44.0 40.2 Glucose Level 149 mg/dL (70-99) 126 mg/dL (70-99) Calcium Level 9.0 mg/dL (8.5-10.1) 8.5 mg/dL (8.5-10.1) Troponin I Quantitative < 0.017 ng/mL (0.000-0.055) < 0.017 ng/mL (0.000-0.055) Urine Collection Type Unknown Urine Color Yellow Urine Clarity Clear Urine pH 5.0 Urine Specific [place] >=1.030 Urine Protein Negative mg/dL (NEG-TRACE) Urine Glucose (UA) Negative mg/dL (NEG) Urine Ketones (Stick) Negative mg/dL (NEG) Urine Blood Negative (NEG) Urine Nitrite Negative (NEG) Urine Bilirubin Small (NEG) Urine Urobilinogen Dipstick 0.2 mg/dL (0.2 mg/dL) Urine Leukocyte Esterase Small (NEG) Urine RBC 0 /HPF (0-2) Urine WBC 1-4 /HPF (0-4) Urine Squamous Epithelial Cells Few /LPF Urine Bacteria 0 /HPF (0-FEW) Urine Mucus Mod /LPF Test 10/17/16 07:43 Troponin I Quantitative < 0.017 ng/mL (0.000-0.055) ASSESSMENT/PLAN ASSESSMENT/PLAN 1. Syncope; review of telemetry noted intermittent high grade block. Presently maintaining SR 2. Hypertension; well controlled 3. Hyperlipidemia; check lipids 4. CLL 5. Nasal fracture Recommendations check echo to assess LV function/ rule out structural abnormalities Transfer to CVC Given symptomatic high grade block, would recommend PPM. R/b/a discussed with patient and is agreeable. Will proceed with device implantation in am. MUKESH ALCALA. Problems: MILTON JACINTO APRN Oct 17, 2016 11:40
[2016-10-17] MEDS: LIDOCAINE (700MG/PATCH) PATCH. TD SCH (12:09)
--- NOTE | 2016-10-17 13:23 | PDOC ---
PROGRESS NOTES Chief Complaint Chief Complaint syncope, recurrent facial trauma laceration with syncope commuted distal nasal bone fx CLL ,WBC baseline 90k htn hld depression anxiety chronic diarrhea CKD 3 plan: fu with dr. Kavon alejandro, and neuro, onco wbc stable as per onco cont home meds check US carotid A, ok check orthostatic BP PTOT dvt ppx check cdiff History of Present Illness History of Present Illness ROS: no fever, chills, sob or chest pain feels ok, said " blacked out" at home at the sink Vitals Vitals Vital Signs Date Time Temp Pulse Resp B/P (MAP) Pulse Ox O2 Delivery O2 Flow Rate FiO2 10/17/16 11:00 97.8 69 18 123/53 (76) 95 Nasal Cannula 2.0 97.8 Physical Exam Physical Exam nose fx wound, facial laceration with stiches General: Alert, Oriented X3, Cooperative Heart: Regular rate, Normal S1, Normal S2 Lungs: Clear Abdomen: Normal bowel sounds, Soft Extremities: No clubbing, No cyanosis Skin: No rashes Labs LABS Laboratory Tests Test 10/16/16 16:20 10/16/16 18:13 10/17/16 01:25 10/17/16 03:40 White Blood Count 105.5 x10^3/uL (4.0-11.0) 111.1 x10^3/uL (4.0-11.0) Red Blood Count 4.19 x10^6/uL (3.50-5.40) 3.98 x10^6/uL (3.50-5.40) Hemoglobin 12.5 g/dL (12.0-15.5) 11.8 g/dL (12.0-15.5) Hematocrit 39.6 % (36.0-47.0) 37.9 % (36.0-47.0) Mean Corpuscular Volume 94 fL (79-100) 95 fL (79-100) Mean Corpuscular Hemoglobin 30 pg (25-35) 30 pg (25-35) Mean Corpuscular Hemoglobin Concent 32 g/dL (31-37) 31 g/dL (31-37) Red Cell Distribution Width 15.5 % (11.5-14.5) 15.5 % (11.5-14.5) Platelet Count 211 x10^3/uL (140-400) 197 x10^3/uL (140-400) Neutrophils (%) (Auto) 12 % (31-73) 9 % (31-73) Lymphocytes (%) (Auto) 87 % (24-48) 89 % (24-48) Monocytes (%) (Auto) 1 % (0-9) 2 % (0-9) Eosinophils (%) (Auto) 0 % (0-3) 0 % (0-3) Basophils (%) (Auto) 0 % (0-3) 0 % (0-3) Neutrophils # (Auto) 12.3 x10^3uL (1.8-7.7) 10.2 x10^3uL (1.8-7.7) Lymphocytes # (Auto) 91.4 x10^3/uL (1.0-4.8) 98.7 x10^3/uL (1.0-4.8) Monocytes # (Auto) 1.2 x10^3/uL (0.0-1.1) 1.9 x10^3/uL (0.0-1.1) Eosinophils # (Auto) 0.2 x10^3/uL (0.0-0.7) 0.2 x10^3/uL (0.0-0.7) Basophils # (Auto) 0.5 x10^3/uL (0.0-0.2) 0.2 x10^3/uL (0.0-0.2) Segmented Neutrophils % 10 % (35-66) Band Neutrophils % 1 % (0-9) Lymphocytes % 89 % (24-48) Smudge Cells Present Platelet Estimate Adequate (ADEQUATE) Sodium Level 140 mmol/L (136-145) 141 mmol/L (136-145) Potassium Level 4.4 mmol/L (3.5-5.1) 3.8 mmol/L (3.5-5.1) Chloride Level 105 mmol/L (98-107) 105 mmol/L (98-107) Carbon Dioxide Level 25 mmol/L (21-32) 26 mmol/L (21-32) Anion Gap 10 (6-14) 10 (6-14) Blood Urea Nitrogen 18 mg/dL (7-20) 19 mg/dL (7-20) Creatinine 1.2 mg/dL (0.6-1.0) 1.3 mg/dL (0.6-1.0) Estimated GFR (Cockcroft-Gault) 44.0 40.2 Glucose Level 149 mg/dL (70-99) 126 mg/dL (70-99) Calcium Level 9.0 mg/dL (8.5-10.1) 8.5 mg/dL (8.5-10.1) Troponin I Quantitative < 0.017 ng/mL (0.000-0.055) < 0.017 ng/mL (0.000-0.055) Urine Collection Type Unknown Urine Color Yellow Urine Clarity Clear Urine pH 5.0 Urine Specific [place] >=1.030 Urine Protein Negative mg/dL (NEG-TRACE) Urine Glucose (UA) Negative mg/dL (NEG) Urine Ketones (Stick) Negative mg/dL (NEG) Urine Blood Negative (NEG) Urine Nitrite Negative (NEG) Urine Bilirubin Small (NEG) Urine Urobilinogen Dipstick 0.2 mg/dL (0.2 mg/dL) Urine Leukocyte Esterase Small (NEG) Urine RBC 0 /HPF (0-2) Urine WBC 1-4 /HPF (0-4) Urine Squamous Epithelial Cells Few /LPF Urine Bacteria 0 /HPF (0-FEW) Urine Mucus Mod /LPF Test 10/17/16 07:43 Troponin I Quantitative < 0.017 ng/mL (0.000-0.055) Assessment and Plan Assessmemt and Plan Problems Medical Problems: (1) Abnormal EKG Status: Acute (2) Facial laceration Status: Acute (3) Head injury Status: Acute (4) Leukemia Status: Acute (5) Nasal fracture Status: Acute (6) Syncope Status: Acute Problems: Comment Review of Relevant I have reviewed the following items darek (where applicable) has been applied. Labs Laboratory Tests Test 10/16/16 16:20 10/16/16 18:13 10/17/16 01:25 10/17/16 03:40 White Blood Count 105.5 x10^3/uL (4.0-11.0) 111.1 x10^3/uL (4.0-11.0) Red Blood Count 4.19 x10^6/uL (3.50-5.40) 3.98 x10^6/uL (3.50-5.40) Hemoglobin 12.5 g/dL (12.0-15.5) 11.8 g/dL (12.0-15.5) Hematocrit 39.6 % (36.0-47.0) 37.9 % (36.0-47.0) Mean Corpuscular Volume 94 fL (79-100) 95 fL (79-100) Mean Corpuscular Hemoglobin 30 pg (25-35) 30 pg (25-35) Mean Corpuscular Hemoglobin Concent 32 g/dL (31-37) 31 g/dL (31-37) Red Cell Distribution Width 15.5 % (11.5-14.5) 15.5 % (11.5-14.5) Platelet Count 211 x10^3/uL (140-400) 197 x10^3/uL (140-400) Neutrophils (%) (Auto) 12 % (31-73) 9 % (31-73) Lymphocytes (%) (Auto) 87 % (24-48) 89 % (24-48) Monocytes (%) (Auto) 1 % (0-9) 2 % (0-9) Eosinophils (%) (Auto) 0 % (0-3) 0 % (0-3) Basophils (%) (Auto) 0 % (0-3) 0 % (0-3) Neutrophils # (Auto) 12.3 x10^3uL (1.8-7.7) 10.2 x10^3uL (1.8-7.7) Lymphocytes # (Auto) 91.4 x10^3/uL (1.0-4.8) 98.7 x10^3/uL (1.0-4.8) Monocytes # (Auto) 1.2 x10^3/uL (0.0-1.1) 1.9 x10^3/uL (0.0-1.1) Eosinophils # (Auto) 0.2 x10^3/uL (0.0-0.7) 0.2 x10^3/uL (0.0-0.7) Basophils # (Auto) 0.5 x10^3/uL (0.0-0.2) 0.2 x10^3/uL (0.0-0.2) Segmented Neutrophils % 10 % (35-66) Band Neutrophils % 1 % (0-9) Lymphocytes % 89 % (24-48) Smudge Cells Present Platelet Estimate Adequate (ADEQUATE) Sodium Level 140 mmol/L (136-145) 141 mmol/L (136-145) Potassium Level 4.4 mmol/L (3.5-5.1) 3.8 mmol/L (3.5-5.1) Chloride Level 105 mmol/L (98-107) 105 mmol/L (98-107) Carbon Dioxide Level 25 mmol/L (21-32) 26 mmol/L (21-32) Anion Gap 10 (6-14) 10 (6-14) Blood Urea Nitrogen 18 mg/dL (7-20) 19 mg/dL (7-20) Creatinine 1.2 mg/dL (0.6-1.0) 1.3 mg/dL (0.6-1.0) Estimated GFR (Cockcroft-Gault) 44.0 40.2 Glucose Level 149 mg/dL (70-99) 126 mg/dL (70-99) Calcium Level 9.0 mg/dL (8.5-10.1) 8.5 mg/dL (8.5-10.1) Troponin I Quantitative < 0.017 ng/mL (0.000-0.055) < 0.017 ng/mL (0.000-0.055) Urine Collection Type Unknown Urine Color Yellow Urine Clarity Clear Urine pH 5.0 Urine Specific [place] >=1.030 Urine Protein Negative mg/dL (NEG-TRACE) Urine Glucose (UA) Negative mg/dL (NEG) Urine Ketones (Stick) Negative mg/dL (NEG) Urine Blood Negative (NEG) Urine Nitrite Negative (NEG) Urine Bilirubin Small (NEG) Urine Urobilinogen Dipstick 0.2 mg/dL (0.2 mg/dL) Urine Leukocyte Esterase Small (NEG) Urine RBC 0 /HPF (0-2) Urine WBC 1-4 /HPF (0-4) Urine Squamous Epithelial Cells Few /LPF Urine Bacteria 0 /HPF (0-FEW) Urine Mucus Mod /LPF Test 10/17/16 07:43 Troponin I Quantitative < 0.017 ng/mL (0.000-0.055) Laboratory Tests Test 10/16/16 16:20 10/16/16 18:13 10/17/16 01:25 10/17/16 03:40 White Blood Count 105.5 x10^3/uL (4.0-11.0) 111.1 x10^3/uL (4.0-11.0) Red Blood Count 4.19 x10^6/uL (3.50-5.40) 3.98 x10^6/uL (3.50-5.40) Hemoglobin 12.5 g/dL (12.0-15.5) 11.8 g/dL (12.0-15.5) Hematocrit 39.6 % (36.0-47.0) 37.9 % (36.0-47.0) Mean Corpuscular Volume 94 fL (79-100) 95 fL (79-100) Mean Corpuscular Hemoglobin 30 pg (25-35) 30 pg (25-35) Mean Corpuscular Hemoglobin Concent 32 g/dL (31-37) 31 g/dL (31-37) Red Cell Distribution Width 15.5 % (11.5-14.5) 15.5 % (11.5-14.5) Platelet Count 211 x10^3/uL (140-400) 197 x10^3/uL (140-400) Neutrophils (%) (Auto) 12 % (31-73) 9 % (31-73) Lymphocytes (%) (Auto) 87 % (24-48) 89 % (24-48) Monocytes (%) (Auto) 1 % (0-9) 2 % (0-9) Eosinophils (%) (Auto) 0 % (0-3) 0 % (0-3) Basophils (%) (Auto) 0 % (0-3) 0 % (0-3) Neutrophils # (Auto) 12.3 x10^3uL (1.8-7.7) 10.2 x10^3uL (1.8-7.7) Lymphocytes # (Auto) 91.4 x10^3/uL (1.0-4.8) 98.7 x10^3/uL (1.0-4.8) Monocytes # (Auto) 1.2 x10^3/uL (0.0-1.1) 1.9 x10^3/uL (0.0-1.1) Eosinophils # (Auto) 0.2 x10^3/uL (0.0-0.7) 0.2 x10^3/uL (0.0-0.7) Basophils # (Auto) 0.5 x10^3/uL (0.0-0.2) 0.2 x10^3/uL (0.0-0.2) Segmented Neutrophils % 10 % (35-66) Band Neutrophils % 1 % (0-9) Lymphocytes % 89 % (24-48) Smudge Cells Present Platelet Estimate Adequate (ADEQUATE) Sodium Level 140 mmol/L (136-145) 141 mmol/L (136-145) Potassium Level 4.4 mmol/L (3.5-5.1) 3.8 mmol/L (3.5-5.1) Chloride Level 105 mmol/L (98-107) 105 mmol/L (98-107) Carbon Dioxide Level 25 mmol/L (21-32) 26 mmol/L (21-32) Anion Gap 10 (6-14) 10 (6-14) Blood Urea Nitrogen 18 mg/dL (7-20) 19 mg/dL (7-20) Creatinine 1.2 mg/dL (0.6-1.0) 1.3 mg/dL (0.6-1.0) Estimated GFR (Cockcroft-Gault) 44.0 40.2 Glucose Level 149 mg/dL (70-99) 126 mg/dL (70-99) Calcium Level 9.0 mg/dL (8.5-10.1) 8.5 mg/dL (8.5-10.1) Troponin I Quantitative < 0.017 ng/mL (0.000-0.055) < 0.017 ng/mL (0.000-0.055) Urine Collection Type Unknown Urine Color Yellow Urine Clarity Clear Urine pH 5.0 Urine Specific [place] >=1.030 Urine Protein Negative mg/dL (NEG-TRACE) Urine Glucose (UA) Negative mg/dL (NEG) Urine Ketones (Stick) Negative mg/dL (NEG) Urine Blood Negative (NEG) Urine Nitrite Negative (NEG) Urine Bilirubin Small (NEG) Urine Urobilinogen Dipstick 0.2 mg/dL (0.2 mg/dL) Urine Leukocyte Esterase Small (NEG) Urine RBC 0 /HPF (0-2) Urine WBC 1-4 /HPF (0-4) Urine Squamous Epithelial Cells Few /LPF Urine Bacteria 0 /HPF (0-FEW) Urine Mucus Mod /LPF Test 10/17/16 07:43 Troponin I Quantitative < 0.017 ng/mL (0.000-0.055) Medications Current Medications Morphine Sulfate 4 mg 1X ONCE IM Last administered on 10/16/16 16:55; Start 10/16/16 at 16:30; Stop 10/16/16 at 16:31; Status DC Ondansetron HCl (Zofran) 4 mg STK-MED ONCE .ROUTE ; Start 10/16/16 at 17:39; Stop 10/16/16 at 17:40; Status DC Ondansetron HCl (Zofran) 4 mg 1X ONCE IV Last administered on 10/16/16 17:44 ; Start 10/16/16 at 17:45; Stop 10/16/16 at 17:46; Status DC Lidocaine/ Epinephrine (Let Topical) 3 ml 1X ONCE TP Last administered on 10/16 18:22; Start 10/16/16 at 18:15; Stop 10/16/16 at 18:16; Status DC Lidocaine/ Epinephrine (Let Topical) 3 ml 1X ONCE TP ; Start 10/16/16 at 18:15 ; Stop 10/16/16 at 18:16; Status DC Morphine Sulfate 2 mg 1X ONCE IV Last administered on 10/16/16 18:24; Start 10/16/16 at 18:15; Stop 10/16/16 at 18:17; Status DC Tetanus/ Diphtheria Toxoids (Tenivac Syringe) 0.5 ml ONCE ONCE VAX IM Last administered on 10/16/16 19:51; Start 10/16/16 at 19:15; Stop 10/16/16 at 19:16 ; Status DC Ondansetron HCl (Zofran) 4 mg PRN Q8HRS PRN IV NAUSEA/VOMITING; Start 10/16/16 at 19:30; Stop 10/17/16 at 19:29 Morphine Sulfate 2 mg PRN Q2HR PRN IV PAIN Last administered on 10/17/16 04:56 ; Start 10/16/16 at 19:30; Stop 10/17/16 at 19:29 Acetaminophen (Tylenol) 650 mg PRN Q4HRS PRN PO FEVER; Start 10/16/16 at 19:30 ; Stop 10/17/16 at 19:29 Morphine Sulfate 4 mg 1X ONCE IM ; Start 10/16/16 at 19:45; Stop 10/16/16 at 19 :46; Status DC Morphine Sulfate 4 mg 1X ONCE IV Last administered on 10/16/16 19:49; Start 10/16/16 at 19:45; Stop 10/16/16 at 19:46; Status DC Morphine Sulfate 4 mg 1X ONCE IV ; Start 10/16/16 at 19:45; Stop 10/16/16 at 19 :46; Status DC Celecoxib (CeleBREX) 200 mg DAILY PO Last administered on 10/17/16 09:55; Start 10/17/16 at 09:00 Cyclobenzaprine HCl (Flexeril) 10 mg TID PO Last administered on 10/17/16 09: 55; Start 10/16/16 at 22:00 Fluticasone Propionate (Flonase) 1 spray DAILY NS Last administered on 09:00; Start 10/17/16 at 09:00 Acetaminophen/ Hydrocodone Bitart (Lortab 5/325) 1 tab PRN Q4HRS PRN PO SEVERE PAIN; Start 10/16/16 at 21:15 Lisinopril (Prinivil) 40 mg DAILY PO Last administered on 10/17/16 09:54; Start 10/17/16 at 09:00 Sertraline HCl (Zoloft) 50 mg DAILY PO Last administered on 10/17/16 09:55; Start 10/17/16 at 09:00 Sumatriptan Succinate (Imitrex) 25 mg PRN Q2HR PRN PO MIGRAINE HEADACHE; Start 10/16/16 at 21:15 Cyclobenzaprine HCl (Flexeril) 10 mg PRN Q6HRS PRN PO MUSCLE SPASMS/NTE 60MG/ 24HRS; Start 10/16/16 at 22:15 Acetaminophen (Tylenol) 650 mg PRN Q6HRS PRN PO FEVER; Start 10/17/16 at 09:15 Ondansetron HCl (Zofran) 4 mg PRN Q6HRS PRN IV NAUSEA/VOMITING; Start 10/17/16 at 09:15 Morphine Sulfate 2 mg PRN Q2HR PRN IV PAIN; Start 10/17/16 at 09:15 Tramadol HCl (Ultram) 50 mg PRN Q6HRS PRN PO PAIN; Start 10/17/16 at 09:15 Hydralazine HCl (Apresoline) 10 mg PRN Q4HRS PRN IVP ELEVATED BP, SEE COMMENTS ; Start 10/17/16 at 09:15 Docusate Sodium (Colace) 100 mg PRN DAILY PRN PO CONSTIPATION; Start 10/17/16 at 09:15 Lidocaine (Lidoderm) 1 patch DAILY TD Last administered on 10/17/16t 12:09; Start 10/17/16 at 11:30 Active Scripts Active Reported Amlodipine Besylate 10 Mg Tablet 10 Mg PO DAILY Zoloft (Sertraline Hcl) 50 Mg Tablet 50 Mg PO DAILY Lisinopril 40 Mg Tablet 40 Mg PO DAILY Hydrocodone-Apap 5-325 (Hydrocodone Bit/Acetaminophen) 1 Each Tablet 1 Tab PO Q4HRS PRN Fluticasone Propionate Nasal [place] (Fluticasone Propionate) 16 Gm [place].susp 1 [place] NS DAILY Cyclobenzaprine Hcl 10 Mg Tablet 10 Mg PO TID Celebrex (Celecoxib) 200 Mg Capsule 200 Mg PO DAILY 30 Days Vitals/I & O Vital Sign - Last 24 Hours 10/16/16 10/16/16 10/16/16 10/16/16 15:08 15:44 16:02 16:44 Temp 98.4 98.4 Pulse 87 81 82 80 Resp 22 20 B/P (MAP) 126/62 (83) 138/57 (84) 136/63 (87) 122/59 (80) Pulse Ox 97 97 96 O2 Delivery Room Air Room Air Room Air Room Air 10/16/16 10/16/16 10/16/16 10/16/16 16:55 17:24 17:39 18:20 Pulse 81 77 77 Resp 22 B/P (MAP) 118/56 (76) 134/63 (86) 137/64 (88) Pulse Ox 96 93 O2 Delivery Room Air Room Air Room Air Room Air 10/16/16 10/16/16 10/16/16 10/16/16 19:49 19:58 20:30 20:57 Pulse 74 76 74 Resp 16 18 16 16 B/P (MAP) 137/64 (88) 124/72 (89) 122/70 (87) Pulse Ox 91 92 86 96 O2 Delivery Room Air Room Air Room Air Nasal Cannula O2 Flow Rate 2.0 10/16/16 10/16/16 10/17/16 10/17/16 21:41 21:49 03:06 04:56 Temp 99.3 99.7 99.3 99.7 Pulse 86 82 Resp 20 20 B/P (MAP) 136/52 (80) 108/56 (73) Pulse Ox 100 91 91 O2 Delivery Room Air Room Air Room Air Room Air O2 Flow Rate 2.0 10/17/16 10/17/16 10/17/16 07:00 09:54 11:00 Temp 99.1 97.8 99.1 97.8 Pulse 73 73 69 Resp 18 18 B/P (MAP) 122/61 (81) 122/61 123/53 (76) Pulse Ox 91 95 O2 Delivery Nasal Cannula Nasal Cannula O2 Flow Rate 2.0 2.0 Intake and Output 10/17/16 10/17/16 10/18/16 15:00 23:00 07:00 Intake Total 180 ml Balance 180 ml BRANDO DANIEL MD Oct 17, 2016 13:23
[2016-10-17 15:00] VITALS: BP 114/53
--- NOTE | 2016-10-17 16:12 | CARD ---
APPROVED REPORT EXAM: Two-dimensional and M-mode echocardiogram with Doppler and color Doppler. Other Information Quality : GoodHR: 61bpm Rhythm : NSR INDICATION Abnormal ECG Syncope RISK FACTORS Hypertension 2D DIMENSIONS RVDd2.9 (2.9-3.5cm)Left Atrium(2D)4.0 (1.6-4.0cm) IVSd0.9 (0.7-1.1cm)Aortic Root(2D)2.7 (2.0-3.7cm) LVDd3.9 (3.9-5.9cm)LVOT Diameter1.8 (1.8-2.4cm) PWd0.9 (0.7-1.1cm)LVDs2.6 (2.5-4.0cm) FS (%) 34.2 %SV42.8 ml Aortic Valve AoV Peak Celso.124.1cm/sAoV VTI27.8cm AO Peak GR.6.2mmHgLVOT Peak [place].115.8cm/s AO Mean GR.3mmHgAVA (VMAX)2.48cm2 Mitral Valve MV E Wionsqmg410.0cm/sMV E Peak Gr.6mmHg MV DECEL [id number] A Jttgqoyc47.8cm/s MV E Mean Gr.2mmHgE/A Ratio1.5 MV A [id number] Pulmonary Valve PV Peak Upjxkemb766.4cm/s Tricuspid Valve TR P. [id number]/sTR Peak Gr.27mmHg Pulmonary Vein S1 Dyiujfnz05.7cm/sD2 Qdaajrbv32.1cm/s PVa [id number] LEFT VENTRICLE The left ventricle is normal size. There is normal left ventricular wall thickness. The left ventricu lar systolic function is normal and the ejection fraction is within normal range. The Ejection Fracti on is 55-60%. There is normal LV segmental wall motion. The left ventricular diastolic function and f illing is normal for age. RIGHT VENTRICLE The right ventricle is normal size. There is normal right ventricular wall thickness. The right ventr icular systolic function is normal. ATRIA The left atrium size is normal. The right atrium size is normal. The interatrial septum is intact wit h no evidence for an atrial septal defect or patent foramen ovale as noted on 2-D or Doppler imaging. AORTIC VALVE The aortic valve is mildly thickened. The aortic valve is trileaflet. Doppler and Color Flow revealed trace aortic regurgitation. There is no significant aortic valvular stenosis. MITRAL VALVE The mitral valve leaflets are mildly thickened. There is no evidence of mitral valve prolapse. There is no mitral valve stenosis. Doppler and Color Flow revealed trace mitral regurgitation. TRICUSPID VALVE Doppler and Color Flow revealed mild tricuspid regurgitation. The pulmonary artery systolic pressure is estimated at 30 mmHg. PULMONIC VALVE The pulmonary valve is not well visualized but appears to open adequately. Doppler and Color Flow rev ealed no pulmonic valvular regurgitation. There is no pulmonic valvular stenosis by spectral Doppler. GREAT VESSELS The aortic root is normal in size. The ascending aorta is normal in size. The pulmonary artery is nor mal. The IVC was obscured, unable to assess. PERICARDIAL EFFUSION There is no evidence of significant pericardial effusion. Critical Notification Critical Value: No <Conclusion> The left ventricle is normal size. The left ventricular systolic function is normal and the ejection fraction is within normal range. The Ejection Fraction is 55-60%. There is no significant aortic valvular stenosis. Doppler and Color Flow revealed trace aortic regurgitation. Doppler and Color Flow revealed trace mitral regurgitation. Doppler and Color Flow revealed mild tricuspid regurgitation. The pulmonary artery systolic pressure is estimated at 30 mmHg.
--- NOTE | 2016-10-17 16:15 | PDOC2 ---
NEUROLOGY CONSULT Date of Admission Date of Admission DATE: 10/17/16 TIME: 16:06 Reason for Consult Reason for Consult: IMPRESSION: Syncope, cardiac etiology most likely. AV block, high grade, 3.5 seconds. Fall Distal nasal fracture from falling. CLL Headaches. RECOMMENDATIONS/PLAN: Pacemaker placement per Cardiology. EEG Lab: see orders. Please consult Oncology for leukemia. Brain MRI if has persistent headaches. HISTORY OF THE PRESENT ILLNESS: 71-y-old female with Hx of CLL but not treated recently. She had a fall which resulted her face and nose injury as distal nasal fracture. She stated she did not have fall in the past. Bill focalized motor or sensory deficits noted. PAST MEDICAL HISTORY Cardiovascular: HTN, Hyperlipidemia Pulmonary: Asthma GI: Diverticulosis Heme/Onc: Other (CLL) Hepatobiliary: No pertinent hx Psych: Anxiety Musculoskeletal: Osteoarthritis Rheumatologic: No pertinent hx Infectious disease: No pertinent hx ENT: No pertinent hx Renal/: No pertinent hx Endocrine: Diabetes Dermatology: No pertinent hx PAST SURGICAL HISTORY Cataract Removal, Tonsillectomy, Hysterectomy FAMILY HISTORY Cancer, Diabetes, Heart Disease, Hypertension SOCIAL HISTORY Smoke: No ALCOHOL: none Drugs: None Lives: with Family ALLERGY: Reviewed. MEDICATIONS: Refer to [facility] REVIEW OF SYSTEMS: Constitutional: No malnutrition, cachexia. Head: Nasal fracture this time. Skin: No edema, or rash. Ear: No infection. Eyes: No vision loss or color blindness. Nose: Distal nasal fracture from falling this time. Hearing: No hearing decrease. Neck: No injury. Breast: No history of cancer, masses,or discharges. Cardiac: No AK, arrhythmia. Pulmonary: No COPD. GI: No GI ulcer, GI bleeding. Hematology: CLL. Urinary/genital: UTI. Endocrinologic: No cousin face, craniofacial dysmorphism, polydactyly, goiter. Skeletomuscular: No muscular atrophy, deformity. Neurological: see HP. Psychiatric: Denies drug use/abuse. Otherwise, not -avuen review of systems. PHYSICAL EXAMINATION: General appearance is in acute distress. HEENT: Normocephalic and nontraumatic. Eyes, nose, ears, and throat are unremarkable. Neck is supple. No lymphadenopathy. No crepitus. Cardiovascular: S1, S2, regular rate and rhythm. Pulmonary: Clear to auscultation bilaterally. Abdomen: Bowel sounds are positive. Abdomen is soft, nontender, and nondistended. Extremities: No rash, lesions, or edema. No restriction of range of motion NEUROLOGICAL EXAMINATION: Alert Oriented to time, place and person. PERRL. EOMI. CN: no focal findings. Muscle tone: within normal. Muscle strength: 5- DTR: 2 Plantar reflex: Flexor response bilaterally Gait: not examined in bed. Sensory exam: no abnormal findings. No cerebellar signs elicited. F-T-N test accurate. Current Medications Current Medications Current Medications Morphine Sulfate 4 mg 1X ONCE IM Last administered on 10/16/16 16:55; Start 10/16/16 at 16:30; Stop 10/16/16 at 16:31; Status DC Ondansetron HCl (Zofran) 4 mg STK-MED ONCE .ROUTE ; Start 10/16/16 at 17:39; Stop 10/16/16 at 17:40; Status DC Ondansetron HCl (Zofran) 4 mg 1X ONCE IV Last administered on 10/16/16 17:44 ; Start 10/16/16 at 17:45; Stop 10/16/16 at 17:46; Status DC Lidocaine/ Epinephrine (Let Topical) 3 ml 1X ONCE TP Last administered on 10/16 18:22; Start 10/16/16 at 18:15; Stop 10/16/16 at 18:16; Status DC Lidocaine/ Epinephrine (Let Topical) 3 ml 1X ONCE TP ; Start 10/16/16 at 18:15 ; Stop 10/16/16 at 18:16; Status DC Morphine Sulfate 2 mg 1X ONCE IV Last administered on 10/16/16 18:24; Start 10/16/16 at 18:15; Stop 10/16/16 at 18:17; Status DC Tetanus/ Diphtheria Toxoids (Tenivac Syringe) 0.5 ml ONCE ONCE VAX IM Last administered on 10/16/16 19:51; Start 10/16/16 at 19:15; Stop 10/16/16 at 19:16 ; Status DC Ondansetron HCl (Zofran) 4 mg PRN Q8HRS PRN IV NAUSEA/VOMITING; Start 10/16/16 at 19:30; Stop 10/17/16 at 14:50; Status DC Morphine Sulfate 2 mg PRN Q2HR PRN IV PAIN Last administered on 10/17/16 04:56 ; Start 10/16/16 at 19:30; Stop 10/17/16 at 14:48; Status DC Acetaminophen (Tylenol) 650 mg PRN Q4HRS PRN PO FEVER; Start 10/16/16 at 19:30 ; Stop 10/17/16 at 14:48; Status DC Morphine Sulfate 4 mg 1X ONCE IM ; Start 10/16/16 at 19:45; Stop 10/16/16 at 19 :46; Status DC Morphine Sulfate 4 mg 1X ONCE IV Last administered on 10/16/16 19:49; Start 10/16/16 at 19:45; Stop 10/16/16 at 19:46; Status DC Morphine Sulfate 4 mg 1X ONCE IV ; Start 10/16/16 at 19:45; Stop 10/16/16 at 19 :46; Status DC Celecoxib (CeleBREX) 200 mg DAILY PO Last administered on 10/17/16 09:55; Start 10/17/16 at 09:00 Cyclobenzaprine HCl (Flexeril) 10 mg TID PO Last administered on 10/17/16 13: 28; Start 10/16/16 at 22:00 Fluticasone Propionate (Flonase) 1 spray DAILY NS Last administered on 09:00; Start 10/17/16 at 09:00 Acetaminophen/ Hydrocodone Bitart (Lortab 5/325) 1 tab PRN Q4HRS PRN PO SEVERE PAIN; Start 10/16/16 at 21:15 Lisinopril (Prinivil) 40 mg DAILY PO Last administered on 10/17/16 09:54; Start 10/17/16 at 09:00 Sertraline HCl (Zoloft) 50 mg DAILY PO Last administered on 10/17/16 09:55; Start 10/17/16 at 09:00 Sumatriptan Succinate (Imitrex) 25 mg PRN Q2HR PRN PO MIGRAINE HEADACHE; Start 10/16/16 at 21:15 Cyclobenzaprine HCl (Flexeril) 10 mg PRN Q6HRS PRN PO MUSCLE SPASMS/NTE 60MG/ 24HRS; Start 10/16/16 at 22:15 Acetaminophen (Tylenol) 650 mg PRN Q6HRS PRN PO FEVER; Start 10/17/16 at 09:15 Ondansetron HCl (Zofran) 4 mg PRN Q6HRS PRN IV NAUSEA/VOMITING; Start 10/17/16 at 09:15 Morphine Sulfate 2 mg PRN Q2HR PRN IV PAIN; Start 10/17/16 at 09:15 Tramadol HCl (Ultram) 50 mg PRN Q6HRS PRN PO PAIN; Start 10/17/16 at 09:15 Hydralazine HCl (Apresoline) 10 mg PRN Q4HRS PRN IVP ELEVATED BP, SEE COMMENTS ; Start 10/17/16 at 09:15 Docusate Sodium (Colace) 100 mg PRN DAILY PRN PO CONSTIPATION; Start 10/17/16 at 09:15 Lidocaine (Lidoderm) 1 patch DAILY TD Last administered on 10/17/16t 12:09; Start 10/17/16 at 11:30 Active Scripts Active Reported Amlodipine Besylate 10 Mg Tablet 10 Mg PO DAILY Zoloft (Sertraline Hcl) 50 Mg Tablet 50 Mg PO DAILY Lisinopril 40 Mg Tablet 40 Mg PO DAILY Hydrocodone-Apap 5-325 (Hydrocodone Bit/Acetaminophen) 1 Each Tablet 1 Tab PO Q4HRS PRN Fluticasone Propionate Nasal [place] (Fluticasone Propionate) 16 Gm [place].susp 1 [place] NS DAILY Cyclobenzaprine Hcl 10 Mg Tablet 10 Mg PO TID Celebrex (Celecoxib) 200 Mg Capsule 200 Mg PO DAILY 30 Days Allergies Allergies: Coded Allergies: No Known Drug Allergies (Unverified , 07/01/14) Vitals VITALS Vital Signs Date Time Temp Pulse Resp B/P (MAP) Pulse Ox O2 Delivery O2 Flow Rate FiO2 10/17/16 15:00 97.7 64 18 114/53 (73) 94 Nasal Cannula 2.0 97.7 Labs Labs Laboratory Tests Test 10/16/16 16:20 10/16/16 18:13 10/17/16 01:25 10/17/16 03:40 White Blood Count 105.5 x10^3/uL (4.0-11.0) 111.1 x10^3/uL (4.0-11.0) Red Blood Count 4.19 x10^6/uL (3.50-5.40) 3.98 x10^6/uL (3.50-5.40) Hemoglobin 12.5 g/dL (12.0-15.5) 11.8 g/dL (12.0-15.5) Hematocrit 39.6 % (36.0-47.0) 37.9 % (36.0-47.0) Mean Corpuscular Volume 94 fL (79-100) 95 fL (79-100) Mean Corpuscular Hemoglobin 30 pg (25-35) 30 pg (25-35) Mean Corpuscular Hemoglobin Concent 32 g/dL (31-37) 31 g/dL (31-37) Red Cell Distribution Width 15.5 % (11.5-14.5) 15.5 % (11.5-14.5) Platelet Count 211 x10^3/uL (140-400) 197 x10^3/uL (140-400) Neutrophils (%) (Auto) 12 % (31-73) 9 % (31-73) Lymphocytes (%) (Auto) 87 % (24-48) 89 % (24-48) Monocytes (%) (Auto) 1 % (0-9) 2 % (0-9) Eosinophils (%) (Auto) 0 % (0-3) 0 % (0-3) Basophils (%) (Auto) 0 % (0-3) 0 % (0-3) Neutrophils # (Auto) 12.3 x10^3uL (1.8-7.7) 10.2 x10^3uL (1.8-7.7) Lymphocytes # (Auto) 91.4 x10^3/uL (1.0-4.8) 98.7 x10^3/uL (1.0-4.8) Monocytes # (Auto) 1.2 x10^3/uL (0.0-1.1) 1.9 x10^3/uL (0.0-1.1) Eosinophils # (Auto) 0.2 x10^3/uL (0.0-0.7) 0.2 x10^3/uL (0.0-0.7) Basophils # (Auto) 0.5 x10^3/uL (0.0-0.2) 0.2 x10^3/uL (0.0-0.2) Segmented Neutrophils % 10 % (35-66) Band Neutrophils % 1 % (0-9) Lymphocytes % 89 % (24-48) Smudge Cells Present Platelet Estimate Adequate (ADEQUATE) Sodium Level 140 mmol/L (136-145) 141 mmol/L (136-145) Potassium Level 4.4 mmol/L (3.5-5.1) 3.8 mmol/L (3.5-5.1) Chloride Level 105 mmol/L (98-107) 105 mmol/L (98-107) Carbon Dioxide Level 25 mmol/L (21-32) 26 mmol/L (21-32) Anion Gap 10 (6-14) 10 (6-14) Blood Urea Nitrogen 18 mg/dL (7-20) 19 mg/dL (7-20) Creatinine 1.2 mg/dL (0.6-1.0) 1.3 mg/dL (0.6-1.0) Estimated GFR (Cockcroft-Gault) 44.0 40.2 Glucose Level 149 mg/dL (70-99) 126 mg/dL (70-99) Calcium Level 9.0 mg/dL (8.5-10.1) 8.5 mg/dL (8.5-10.1) Troponin I Quantitative < 0.017 ng/mL (0.000-0.055) < 0.017 ng/mL (0.000-0.055) Urine Collection Type Unknown Urine Color Yellow Urine Clarity Clear Urine pH 5.0 Urine Specific [place] >=1.030 Urine Protein Negative mg/dL (NEG-TRACE) Urine Glucose (UA) Negative mg/dL (NEG) Urine Ketones (Stick) Negative mg/dL (NEG) Urine Blood Negative (NEG) Urine Nitrite Negative (NEG) Urine Bilirubin Small (NEG) Urine Urobilinogen Dipstick 0.2 mg/dL (0.2 mg/dL) Urine Leukocyte Esterase Small (NEG) Urine RBC 0 /HPF (0-2) Urine WBC 1-4 /HPF (0-4) Urine Squamous Epithelial Cells Few /LPF Urine Bacteria 0 /HPF (0-FEW) Urine Mucus Mod /LPF Test 10/17/16 07:43 Troponin I Quantitative < 0.017 ng/mL (0.000-0.055) Laboratory Tests Test 10/16/16 16:20 10/16/16 18:13 10/17/16 01:25 10/17/16 03:40 White Blood Count 105.5 x10^3/uL (4.0-11.0) 111.1 x10^3/uL (4.0-11.0) Red Blood Count 4.19 x10^6/uL (3.50-5.40) 3.98 x10^6/uL (3.50-5.40) Hemoglobin 12.5 g/dL (12.0-15.5) 11.8 g/dL (12.0-15.5) Hematocrit 39.6 % (36.0-47.0) 37.9 % (36.0-47.0) Mean Corpuscular Volume 94 fL (79-100) 95 fL (79-100) Mean Corpuscular Hemoglobin 30 pg (25-35) 30 pg (25-35) Mean Corpuscular Hemoglobin Concent 32 g/dL (31-37) 31 g/dL (31-37) Red Cell Distribution Width 15.5 % (11.5-14.5) 15.5 % (11.5-14.5) Platelet Count 211 x10^3/uL (140-400) 197 x10^3/uL (140-400) Neutrophils (%) (Auto) 12 % (31-73) 9 % (31-73) Lymphocytes (%) (Auto) 87 % (24-48) 89 % (24-48) Monocytes (%) (Auto) 1 % (0-9) 2 % (0-9) Eosinophils (%) (Auto) 0 % (0-3) 0 % (0-3) Basophils (%) (Auto) 0 % (0-3) 0 % (0-3) Neutrophils # (Auto) 12.3 x10^3uL (1.8-7.7) 10.2 x10^3uL (1.8-7.7) Lymphocytes # (Auto) 91.4 x10^3/uL (1.0-4.8) 98.7 x10^3/uL (1.0-4.8) Monocytes # (Auto) 1.2 x10^3/uL (0.0-1.1) 1.9 x10^3/uL (0.0-1.1) Eosinophils # (Auto) 0.2 x10^3/uL (0.0-0.7) 0.2 x10^3/uL (0.0-0.7) Basophils # (Auto) 0.5 x10^3/uL (0.0-0.2) 0.2 x10^3/uL (0.0-0.2) Segmented Neutrophils % 10 % (35-66) Band Neutrophils % 1 % (0-9) Lymphocytes % 89 % (24-48) Smudge Cells Present Platelet Estimate Adequate (ADEQUATE) Sodium Level 140 mmol/L (136-145) 141 mmol/L (136-145) Potassium Level 4.4 mmol/L (3.5-5.1) 3.8 mmol/L (3.5-5.1) Chloride Level 105 mmol/L (98-107) 105 mmol/L (98-107) Carbon Dioxide Level 25 mmol/L (21-32) 26 mmol/L (21-32) Anion Gap 10 (6-14) 10 (6-14) Blood Urea Nitrogen 18 mg/dL (7-20) 19 mg/dL (7-20) Creatinine 1.2 mg/dL (0.6-1.0) 1.3 mg/dL (0.6-1.0) Estimated GFR (Cockcroft-Gault) 44.0 40.2 Glucose Level 149 mg/dL (70-99) 126 mg/dL (70-99) Calcium Level 9.0 mg/dL (8.5-10.1) 8.5 mg/dL (8.5-10.1) Troponin I Quantitative < 0.017 ng/mL (0.000-0.055) < 0.017 ng/mL (0.000-0.055) Urine Collection Type Unknown Urine Color Yellow Urine Clarity Clear Urine pH 5.0 Urine Specific [place] >=1.030 Urine Protein Negative mg/dL (NEG-TRACE) Urine Glucose (UA) Negative mg/dL (NEG) Urine Ketones (Stick) Negative mg/dL (NEG) Urine Blood Negative (NEG) Urine Nitrite Negative (NEG) Urine Bilirubin Small (NEG) Urine Urobilinogen Dipstick 0.2 mg/dL (0.2 mg/dL) Urine Leukocyte Esterase Small (NEG) Urine RBC 0 /HPF (0-2) Urine WBC 1-4 /HPF (0-4) Urine Squamous Epithelial Cells Few /LPF Urine Bacteria 0 /HPF (0-FEW) Urine Mucus Mod /LPF Test 10/17/16 07:43 Troponin I Quantitative < 0.017 ng/mL (0.000-0.055) LISA KAUR MD Oct 17, 2016 16:15
--- NOTE | 2016-10-17 18:07 | CONS ---
DATE OF CONSULTATION: 10/17/2016 ATTENDING PHYSICIAN: Dr. Acuna. The patient was seen at the request of Dr. Acuna for rehab evaluation about her neck pain. 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 The patient was admitted on 10/16/2016 with syncopal episode and complains of head pain and neck pain. The patient also admits pain in her neck and lips and some headache. The patient also admits pain in her right ribcage area. The patient with history of leukemia, not currently on treatment. WBC recently ranged around 80,000-90,000. She had a previous syncopal episode, but did not have one for about a year. The patient was noted with abnormal EKG. She was noted with nasal fracture. The patient denies any difficulty with memory or thinking or bowel or bladder control or numbness, tingling sensation in the extremities. The patient is not known allergic to any medication. She lives with her family. PHYSICAL EXAMINATION: Today revealed an elderly female. She is alert, oriented to time, place, person and circumstance and follows commands appropriately, moves all 4 extremities voluntarily where she had 4+/5 grade muscle strength and deep tendon reflexes are 1 to 2+ and symmetrical with absent ankle jerks. She had equal perception of touch and pinprick sensation bilaterally. She had some pain on extension of her neck. No significant tenderness to palpate on cervical spine or adjoining paraspinal muscles or posterior shoulder girdle muscles or at both shoulders. The patient is independent with her mobility and self-care skills, can walk on her tiptoes and on her heels and can walk on a straight line, 1 foot in front of other without any loss of balance. She had skin abrasion and bruised her skin over her nose and over upper lip and over chin and she had significant tenderness to palpation over right lower ribcage area anterolaterally. She is having some pain in her ribs while trying to get in end of the bed. ASSESSMENT: An elderly female with recent syncopal episode and fall with nasal bone fracture and cervical sprain and right ribcage sprain, clinical evidence of peripheral neuropathy. RECOMMENDATION: To try physical modalities at home when medically stable with outpatient followup by ENT. Dr. Acuna, I appreciate asking me to participate in the care of this interesting patient. I will be glad to follow her with you as needed for rehabilitation. SHELIA DUKE MD DR: LETICIA/sven JOB#: [id number] / [id number]
[2016-10-17 19:00] VITALS: BP 110/55
--- NOTE | 2016-10-17 21:48 | CONS ---
DATE OF CONSULTATION: 10/17/2016 MEDICAL ONCOLOGY CONSULTATION REPORT CONSULTATION REQUESTED BY: Ling Acuna MD REASON FOR CONSULTATION: CLL. HISTORY OF PRESENT ILLNESS: The patient is a 71-year-old female who had a routine screening mammogram on 06/16/2014, which revealed evidence of bilateral enlarged axillary lymph nodes. She underwent a CBC on 06/20/2014 which revealed a WBC count of 43.7 with 77% lymphocytes. She had a bone marrow biopsy on 07/01/2016 which revealed CLL with 17p deletion. She is being monitored every 3 months and she has not been started on any treatment for CLL. She was admitted to [facility] on 10/16/2016 following a syncopal episode. She had facial laceration and sutures were placed in the Emergency Room. Cardiology was consulted and she was diagnosed with high-grade block and pacemaker placement is being considered. Her CBC on 10/17/2016 revealed significantly worsening WBC count at 111.1 and hence I was consulted for further evaluation. She denies fevers, chills or night sweats. No hematemesis, melena, hematochezia, no hemoptysis or hematuria. PAST MEDICAL HISTORY: Tonsillectomy, adenoidectomy, tendon repair, hysterectomy, bladder surgery, and shoulder surgery. FAMILY HISTORY: Father had lung cancer, brother had prostate cancer, grandmother had breast cancer. SOCIAL HISTORY: She is a never smoker. REVIEW OF SYSTEMS: A 12-point review of system was performed. Pertinent positives are mentioned in the history of presenting illness. Rest of the system review is negative. PHYSICAL EXAMINATION: GENERAL: The patient is a 71-year-old female who is in no acute cardiorespiratory distress. VITAL SIGNS: Blood pressure 114/53, temperature 97.7. HEAD: There is evidence of trauma on her face. EYES: No icterus. ENT: There is laceration on her nose. NECK: Supple. CHEST: Bilaterally symmetrical. No crepitations or rhonchi heard. HEART: S1, S2 normal. ABDOMEN: Soft, nontender. CENTRAL NERVOUS SYSTEM: No focal neurological deficits. LYMPHATICS: She has bilateral cervical and bilateral axillary lymph nodes. CENTRAL NERVOUS SYSTEM: No focal deficits. LABORATORY DATA: CBC from 10/17/2016 revealed a WBC 111.1, hemoglobin 11.8, platelet count 197. IMPRESSION AND PLAN: 1. Stage I chronic lymphocytic leukemia. WBC progressively worse, which is unexpected course of disease in patient with chronic lymphocytic leukemia. However, she has not progressed to stage III or stage IV chronic lymphocytic leukemia and hence continued observation is reasonable. 2. 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 Appreciate Cardiology consultation. I agree to proceed with pacemaker on 10/18/2016. 3. 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 4. I discussed with Dr. Ling Acuna. ANA M MI MD DR: AURA/sven JOB#: [id number] / [id number] INES
[2016-10-17 22:30] VITALS: BP 111/56
[2016-10-18 07:00] VITALS: BP 130/70
[2016-10-18] MEDS: FLUTICASONE 50MCG/NASAL SPRAY 16GM BOTTLE. NS SCH (08:43)
[2016-10-18] MEDS: CELECOXIB 200 MG CAPSULE. PO SCH (08:44)
[2016-10-18] MEDS: CYCLOBENZAPRINE 10 MG TABLET. PO SCH ×3 (08:44→20:46)
[2016-10-18] MEDS: SERTRALINE 50 MG TABLET. PO SCH (08:44)
[2016-10-18] MEDS: LISINOPRIL 40 MG TABLET. PO SCH (08:45)
[2016-10-18] MEDS ORDERED: BACITRACIN 50,000 UNIT in IV NORMAL SALINE 250ML 250 ML IRR ONE (08:45)
[2016-10-18] MEDS: LIDOCAINE (700MG/PATCH) PATCH. TD SCH (08:45)
--- NOTE | 2016-10-18 08:58 | PDOC ---
PROGRESS NOTES Subjective Subjective She admits less pain in her neck,head and rib cage area. Objective Objective Vital Signs Date Time Temp Pulse Resp B/P (MAP) Pulse Ox O2 Delivery O2 Flow Rate FiO2 10/18/16 08:45 63 111/56 10/17/16 22:30 97.9 18 94 Room Air 97.9 10/17/16 15:00 2.0 Physical Exam Physical Exam She is alert,supine in bed and continues with bruised chin,upper lip and nose and tenderness to palpation over right lower rib cage area. Assessment Assessment Problems Medical Problems: (1) Abnormal EKG Status: Acute (2) Facial laceration Status: Acute (3) Head injury Status: Acute (4) Leukemia Status: Acute (5) Nasal fracture Status: Acute (6) Syncope Status: Acute Plan Plan of Long Term when medically stable. Comment Review of Relevant I have reviewed the following items darek (where applicable) has been applied. Labs Laboratory Tests Test 10/16/16 16:20 10/16/16 18:13 10/17/16 01:25 10/17/16 03:40 White Blood Count 105.5 x10^3/uL (4.0-11.0) 111.1 x10^3/uL (4.0-11.0) Red Blood Count 4.19 x10^6/uL (3.50-5.40) 3.98 x10^6/uL (3.50-5.40) Hemoglobin 12.5 g/dL (12.0-15.5) 11.8 g/dL (12.0-15.5) Hematocrit 39.6 % (36.0-47.0) 37.9 % (36.0-47.0) Mean Corpuscular Volume 94 fL (79-100) 95 fL (79-100) Mean Corpuscular Hemoglobin 30 pg (25-35) 30 pg (25-35) Mean Corpuscular Hemoglobin Concent 32 g/dL (31-37) 31 g/dL (31-37) Red Cell Distribution Width 15.5 % (11.5-14.5) 15.5 % (11.5-14.5) Platelet Count 211 x10^3/uL (140-400) 197 x10^3/uL (140-400) Neutrophils (%) (Auto) 12 % (31-73) 9 % (31-73) Lymphocytes (%) (Auto) 87 % (24-48) 89 % (24-48) Monocytes (%) (Auto) 1 % (0-9) 2 % (0-9) Eosinophils (%) (Auto) 0 % (0-3) 0 % (0-3) Basophils (%) (Auto) 0 % (0-3) 0 % (0-3) Neutrophils # (Auto) 12.3 x10^3uL (1.8-7.7) 10.2 x10^3uL (1.8-7.7) Lymphocytes # (Auto) 91.4 x10^3/uL (1.0-4.8) 98.7 x10^3/uL (1.0-4.8) Monocytes # (Auto) 1.2 x10^3/uL (0.0-1.1) 1.9 x10^3/uL (0.0-1.1) Eosinophils # (Auto) 0.2 x10^3/uL (0.0-0.7) 0.2 x10^3/uL (0.0-0.7) Basophils # (Auto) 0.5 x10^3/uL (0.0-0.2) 0.2 x10^3/uL (0.0-0.2) Segmented Neutrophils % 10 % (35-66) Band Neutrophils % 1 % (0-9) Lymphocytes % 89 % (24-48) Smudge Cells Present Platelet Estimate Adequate (ADEQUATE) Sodium Level 140 mmol/L (136-145) 141 mmol/L (136-145) Potassium Level 4.4 mmol/L (3.5-5.1) 3.8 mmol/L (3.5-5.1) Chloride Level 105 mmol/L (98-107) 105 mmol/L (98-107) Carbon Dioxide Level 25 mmol/L (21-32) 26 mmol/L (21-32) Anion Gap 10 (6-14) 10 (6-14) Blood Urea Nitrogen 18 mg/dL (7-20) 19 mg/dL (7-20) Creatinine 1.2 mg/dL (0.6-1.0) 1.3 mg/dL (0.6-1.0) Estimated GFR (Cockcroft-Gault) 44.0 40.2 Glucose Level 149 mg/dL (70-99) 126 mg/dL (70-99) Calcium Level 9.0 mg/dL (8.5-10.1) 8.5 mg/dL (8.5-10.1) Troponin I Quantitative < 0.017 ng/mL (0.000-0.055) < 0.017 ng/mL (0.000-0.055) Urine Collection Type Unknown Urine Color Yellow Urine Clarity Clear Urine pH 5.0 Urine Specific [place] >=1.030 Urine Protein Negative mg/dL (NEG-TRACE) Urine Glucose (UA) Negative mg/dL (NEG) Urine Ketones (Stick) Negative mg/dL (NEG) Urine Blood Negative (NEG) Urine Nitrite Negative (NEG) Urine Bilirubin Small (NEG) Urine Urobilinogen Dipstick 0.2 mg/dL (0.2 mg/dL) Urine Leukocyte Esterase Small (NEG) Urine RBC 0 /HPF (0-2) Urine WBC 1-4 /HPF (0-4) Urine Squamous Epithelial Cells Few /LPF Urine Bacteria 0 /HPF (0-FEW) Urine Mucus Mod /LPF Test 10/17/16 07:43 Troponin I Quantitative < 0.017 ng/mL (0.000-0.055) Microbiology 10/16/16 Urine Culture - Preliminary, Resulted 10/16/16 Urine Culture Result 1 (ILEANA) - Preliminary, Resulted Medications Current Medications Morphine Sulfate 4 mg 1X ONCE IM Last administered on 10/16/16 16:55; Start 10/16/16 at 16:30; Stop 10/16/16 at 16:31; Status DC Ondansetron HCl (Zofran) 4 mg STK-MED ONCE .ROUTE ; Start 10/16/16 at 17:39; Stop 10/16/16 at 17:40; Status DC Ondansetron HCl (Zofran) 4 mg 1X ONCE IV Last administered on 10/16/16 17:44 ; Start 10/16/16 at 17:45; Stop 10/16/16 at 17:46; Status DC Lidocaine/ Epinephrine (Let Topical) 3 ml 1X ONCE TP Last administered on 10/16 18:22; Start 10/16/16 at 18:15; Stop 10/16/16 at 18:16; Status DC Lidocaine/ Epinephrine (Let Topical) 3 ml 1X ONCE TP ; Start 10/16/16 at 18:15 ; Stop 10/16/16 at 18:16; Status DC Morphine Sulfate 2 mg 1X ONCE IV Last administered on 10/16/16 18:24; Start 10/16/16 at 18:15; Stop 10/16/16 at 18:17; Status DC Tetanus/ Diphtheria Toxoids (Tenivac Syringe) 0.5 ml ONCE ONCE VAX IM Last administered on 10/16/16 19:51; Start 10/16/16 at 19:15; Stop 10/16/16 at 19:16 ; Status DC Ondansetron HCl (Zofran) 4 mg PRN Q8HRS PRN IV NAUSEA/VOMITING; Start 10/16/16 at 19:30; Stop 10/17/16 at 14:50; Status DC Morphine Sulfate 2 mg PRN Q2HR PRN IV PAIN Last administered on 10/17/16 04:56 ; Start 10/16/16 at 19:30; Stop 10/17/16 at 14:48; Status DC Acetaminophen (Tylenol) 650 mg PRN Q4HRS PRN PO FEVER; Start 10/16/16 at 19:30 ; Stop 10/17/16 at 14:48; Status DC Morphine Sulfate 4 mg 1X ONCE IM ; Start 10/16/16 at 19:45; Stop 10/16/16 at 19 :46; Status DC Morphine Sulfate 4 mg 1X ONCE IV Last administered on 10/16/16 19:49; Start 10/16/16 at 19:45; Stop 10/16/16 at 19:46; Status DC Morphine Sulfate 4 mg 1X ONCE IV ; Start 10/16/16 at 19:45; Stop 10/16/16 at 19 :46; Status DC Celecoxib (CeleBREX) 200 mg DAILY PO Last administered on 10/18/16 08:44; Start 10/17/16 at 09:00 Cyclobenzaprine HCl (Flexeril) 10 mg TID PO Last administered on 10/18/16 08:44 ; Start 10/16/16 at 22:00 Fluticasone Propionate (Flonase) 1 spray DAILY NS Last administered on 08:43; Start 10/17/16 at 09:00 Acetaminophen/ Hydrocodone Bitart (Lortab 5/325) 1 tab PRN Q4HRS PRN PO SEVERE PAIN; Start 10/16/16 at 21:15 Lisinopril (Prinivil) 40 mg DAILY PO Last administered on 10/18/16 08:45; Start 10/17/16 at 09:00 Sertraline HCl (Zoloft) 50 mg DAILY PO Last administered on 10/18/16 08:44; Start 10/17/16 at 09:00 Sumatriptan Succinate (Imitrex) 25 mg PRN Q2HR PRN PO MIGRAINE HEADACHE; Start 10/16/16 at 21:15 Cyclobenzaprine HCl (Flexeril) 10 mg PRN Q6HRS PRN PO MUSCLE SPASMS/NTE 60MG/ 24HRS; Start 10/16/16 at 22:15 Acetaminophen (Tylenol) 650 mg PRN Q6HRS PRN PO FEVER; Start 10/17/16 at 09:15 Ondansetron HCl (Zofran) 4 mg PRN Q6HRS PRN IV NAUSEA/VOMITING; Start 10/17/16 at 09:15 Morphine Sulfate 2 mg PRN Q2HR PRN IV PAIN; Start 10/17/16 at 09:15 Tramadol HCl (Ultram) 50 mg PRN Q6HRS PRN PO PAIN; Start 10/17/16 at 09:15 Hydralazine HCl (Apresoline) 10 mg PRN Q4HRS PRN IVP ELEVATED BP, SEE COMMENTS ; Start 10/17/16 at 09:15 Docusate Sodium (Colace) 100 mg PRN DAILY PRN PO CONSTIPATION; Start 10/17/16 at 09:15 Lidocaine (Lidoderm) 1 patch DAILY TD Last administered on 10/18/16 08:45; Start 10/17/16 at 11:30 Bacitracin 60264 unit/Sodium Chloride 250 ml @ 0 mls/hr 1X ONCE IRR ; Start 10/18/16 at 08:45; Stop 10/18/16 at 08:46; Status DC Cefazolin Sodium/ Dextrose 50 ml @ 100 mls/hr 1X ONCE IV ; Start 10/18/16 at 08 :30; Stop 10/18/16 at 08:59 Active Scripts Active Reported Amlodipine Besylate 10 Mg Tablet 10 Mg PO DAILY Zoloft (Sertraline Hcl) 50 Mg Tablet 50 Mg PO DAILY Lisinopril 40 Mg Tablet 40 Mg PO DAILY Hydrocodone-Apap 5-325 (Hydrocodone Bit/Acetaminophen) 1 Each Tablet 1 Tab PO Q4HRS PRN Fluticasone Propionate Nasal [place] (Fluticasone Propionate) 16 Gm [place].susp 1 [place] NS DAILY Cyclobenzaprine Hcl 10 Mg Tablet 10 Mg PO TID Celebrex (Celecoxib) 200 Mg Capsule 200 Mg PO DAILY 30 Days Vitals/I & O Vital Sign - Last 24 Hours 10/17/16 10/17/16 10/17/16 10/17/16 09:54 11:00 15:00 19:00 Temp 97.8 97.7 97.9 97.8 97.7 97.9 Pulse 73 69 64 59 Resp 18 18 18 B/P (MAP) 122/61 123/53 (76) 114/53 (73) 110/55 (73) Pulse Ox 95 94 94 O2 Delivery Nasal Cannula Nasal Cannula Room Air O2 Flow Rate 2.0 2.0 10/17/16 10/17/16 10/18/16 20:00 22:30 08:45 Temp 97.9 97.9 Pulse 63 63 Resp 18 B/P (MAP) 111/56 (74) 111/56 Pulse Ox 94 O2 Delivery Room Air Room Air SHELIA DUKE MD Oct 18, 2016 08:58
--- NOTE | 2016-10-18 09:15 | PDOC ---
PROGRESS NOTES Subjective Subjective c/c - f/u of Stage I chronic lymphocytic leukemia. ROS - no headaches Objective Objective Vital Signs Date Time Temp Pulse Resp B/P (MAP) Pulse Ox O2 Delivery O2 Flow Rate FiO2 10/18/16 08:45 63 111/56 10/18/16 07:00 94.7 18 92 Room Air 94.7 10/17/16 15:00 2.0 Physical Exam Heart: Normal S1, Normal S2 General: Alert, Oriented X3 Neuro: Normal speech Psych/Mental Status: Mental status NL Assessment Assessment Problems Medical Problems: (1) Abnormal EKG Status: Acute (2) Facial laceration Status: Acute (3) Head injury Status: Acute (4) Leukemia Status: Acute (5) Nasal fracture Status: Acute (6) Syncope Status: Acute IMPRESSION AND PLAN: 1. Stage I chronic lymphocytic leukemia. WBC progressively worse, which is unexpected course of disease in patient with chronic lymphocytic leukemia. However, she has not progressed to stage III or stage IV chronic lymphocytic leukemia and hence continued observation is reasonable. f/u with me in 2-3 weeks. 2. 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 Appreciate Cardiology consultation. I agree to proceed with pacemaker on 10/18/2016. 3. 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 4. I discussed with Dr. Ling Acuna. Comment Review of Relevant I have reviewed the following items darek (where applicable) has been applied. Labs Laboratory Tests Test 10/16/16 16:20 10/16/16 18:13 10/17/16 01:25 10/17/16 03:40 White Blood Count 105.5 x10^3/uL (4.0-11.0) 111.1 x10^3/uL (4.0-11.0) Red Blood Count 4.19 x10^6/uL (3.50-5.40) 3.98 x10^6/uL (3.50-5.40) Hemoglobin 12.5 g/dL (12.0-15.5) 11.8 g/dL (12.0-15.5) Hematocrit 39.6 % (36.0-47.0) 37.9 % (36.0-47.0) Mean Corpuscular Volume 94 fL (79-100) 95 fL (79-100) Mean Corpuscular Hemoglobin 30 pg (25-35) 30 pg (25-35) Mean Corpuscular Hemoglobin Concent 32 g/dL (31-37) 31 g/dL (31-37) Red Cell Distribution Width 15.5 % (11.5-14.5) 15.5 % (11.5-14.5) Platelet Count 211 x10^3/uL (140-400) 197 x10^3/uL (140-400) Neutrophils (%) (Auto) 12 % (31-73) 9 % (31-73) Lymphocytes (%) (Auto) 87 % (24-48) 89 % (24-48) Monocytes (%) (Auto) 1 % (0-9) 2 % (0-9) Eosinophils (%) (Auto) 0 % (0-3) 0 % (0-3) Basophils (%) (Auto) 0 % (0-3) 0 % (0-3) Neutrophils # (Auto) 12.3 x10^3uL (1.8-7.7) 10.2 x10^3uL (1.8-7.7) Lymphocytes # (Auto) 91.4 x10^3/uL (1.0-4.8) 98.7 x10^3/uL (1.0-4.8) Monocytes # (Auto) 1.2 x10^3/uL (0.0-1.1) 1.9 x10^3/uL (0.0-1.1) Eosinophils # (Auto) 0.2 x10^3/uL (0.0-0.7) 0.2 x10^3/uL (0.0-0.7) Basophils # (Auto) 0.5 x10^3/uL (0.0-0.2) 0.2 x10^3/uL (0.0-0.2) Segmented Neutrophils % 10 % (35-66) Band Neutrophils % 1 % (0-9) Lymphocytes % 89 % (24-48) Smudge Cells Present Platelet Estimate Adequate (ADEQUATE) Sodium Level 140 mmol/L (136-145) 141 mmol/L (136-145) Potassium Level 4.4 mmol/L (3.5-5.1) 3.8 mmol/L (3.5-5.1) Chloride Level 105 mmol/L (98-107) 105 mmol/L (98-107) Carbon Dioxide Level 25 mmol/L (21-32) 26 mmol/L (21-32) Anion Gap 10 (6-14) 10 (6-14) Blood Urea Nitrogen 18 mg/dL (7-20) 19 mg/dL (7-20) Creatinine 1.2 mg/dL (0.6-1.0) 1.3 mg/dL (0.6-1.0) Estimated GFR (Cockcroft-Gault) 44.0 40.2 Glucose Level 149 mg/dL (70-99) 126 mg/dL (70-99) Calcium Level 9.0 mg/dL (8.5-10.1) 8.5 mg/dL (8.5-10.1) Troponin I Quantitative < 0.017 ng/mL (0.000-0.055) < 0.017 ng/mL (0.000-0.055) Urine Collection Type Unknown Urine Color Yellow Urine Clarity Clear Urine pH 5.0 Urine Specific [place] >=1.030 Urine Protein Negative mg/dL (NEG-TRACE) Urine Glucose (UA) Negative mg/dL (NEG) Urine Ketones (Stick) Negative mg/dL (NEG) Urine Blood Negative (NEG) Urine Nitrite Negative (NEG) Urine Bilirubin Small (NEG) Urine Urobilinogen Dipstick 0.2 mg/dL (0.2 mg/dL) Urine Leukocyte Esterase Small (NEG) Urine RBC 0 /HPF (0-2) Urine WBC 1-4 /HPF (0-4) Urine Squamous Epithelial Cells Few /LPF Urine Bacteria 0 /HPF (0-FEW) Urine Mucus Mod /LPF Test 10/17/16 07:43 Troponin I Quantitative < 0.017 ng/mL (0.000-0.055) Microbiology 10/16/16 Urine Culture - Preliminary, Resulted 10/16/16 Urine Culture Result 1 (ILEANA) - Preliminary, Resulted Medications Current Medications Morphine Sulfate 4 mg 1X ONCE IM Last administered on 10/16/16t 16:55; Start 10/16/16 at 16:30; Stop 10/16/16 at 16:31; Status DC Ondansetron HCl (Zofran) 4 mg STK-MED ONCE .ROUTE ; Start 10/16/16 at 17:39; Stop 10/16/16 at 17:40; Status DC Ondansetron HCl (Zofran) 4 mg 1X ONCE IV Last administered on 10/16/16 17:44 ; Start 10/16/16 at 17:45; Stop 10/16/16 at 17:46; Status DC Lidocaine/ Epinephrine (Let Topical) 3 ml 1X ONCE TP Last administered on 10/16 18:22; Start 10/16/16 at 18:15; Stop 10/16/16 at 18:16; Status DC Lidocaine/ Epinephrine (Let Topical) 3 ml 1X ONCE TP ; Start 10/16/16 at 18:15 ; Stop 10/16/16 at 18:16; Status DC Morphine Sulfate 2 mg 1X ONCE IV Last administered on 10/16/16 18:24; Start 10/16/16 at 18:15; Stop 10/16/16 at 18:17; Status DC Tetanus/ Diphtheria Toxoids (Tenivac Syringe) 0.5 ml ONCE ONCE VAX IM Last administered on 10/16/16 19:51; Start 10/16/16 at 19:15; Stop 10/16/16 at 19:16 ; Status DC Ondansetron HCl (Zofran) 4 mg PRN Q8HRS PRN IV NAUSEA/VOMITING; Start 10/16/16 at 19:30; Stop 10/17/16 at 14:50; Status DC Morphine Sulfate 2 mg PRN Q2HR PRN IV PAIN Last administered on 10/17/16 04:56 ; Start 10/16/16 at 19:30; Stop 10/17/16 at 14:48; Status DC Acetaminophen (Tylenol) 650 mg PRN Q4HRS PRN PO FEVER; Start 10/16/16 at 19:30 ; Stop 10/17/16 at 14:48; Status DC Morphine Sulfate 4 mg 1X ONCE IM ; Start 10/16/16 at 19:45; Stop 10/16/16 at 19 :46; Status DC Morphine Sulfate 4 mg 1X ONCE IV Last administered on 10/16/16 19:49; Start 10/16/16 at 19:45; Stop 10/16/16 at 19:46; Status DC Morphine Sulfate 4 mg 1X ONCE IV ; Start 10/16/16 at 19:45; Stop 10/16/16 at 19 :46; Status DC Celecoxib (CeleBREX) 200 mg DAILY PO Last administered on 10/18/16 08:44; Start 10/17/16 at 09:00 Cyclobenzaprine HCl (Flexeril) 10 mg TID PO Last administered on 10/18/16 08:44 ; Start 10/16/16 at 22:00 Fluticasone Propionate (Flonase) 1 spray DAILY NS Last administered on 08:43; Start 10/17/16 at 09:00 Acetaminophen/ Hydrocodone Bitart (Lortab 5/325) 1 tab PRN Q4HRS PRN PO SEVERE PAIN; Start 10/16/16 at 21:15 Lisinopril (Prinivil) 40 mg DAILY PO Last administered on 10/18/16 08:45; Start 10/17/16 at 09:00 Sertraline HCl (Zoloft) 50 mg DAILY PO Last administered on 10/18/16 08:44; Start 10/17/16 at 09:00 Sumatriptan Succinate (Imitrex) 25 mg PRN Q2HR PRN PO MIGRAINE HEADACHE; Start 10/16/16 at 21:15 Cyclobenzaprine HCl (Flexeril) 10 mg PRN Q6HRS PRN PO MUSCLE SPASMS/NTE 60MG/ 24HRS; Start 10/16/16 at 22:15 Acetaminophen (Tylenol) 650 mg PRN Q6HRS PRN PO FEVER; Start 10/17/16 at 09:15 Ondansetron HCl (Zofran) 4 mg PRN Q6HRS PRN IV NAUSEA/VOMITING; Start 10/17/16 at 09:15 Morphine Sulfate 2 mg PRN Q2HR PRN IV PAIN; Start 10/17/16 at 09:15 Tramadol HCl (Ultram) 50 mg PRN Q6HRS PRN PO PAIN; Start 10/17/16 at 09:15 Hydralazine HCl (Apresoline) 10 mg PRN Q4HRS PRN IVP ELEVATED BP, SEE COMMENTS ; Start 10/17/16 at 09:15 Docusate Sodium (Colace) 100 mg PRN DAILY PRN PO CONSTIPATION; Start 10/17/16 at 09:15 Lidocaine (Lidoderm) 1 patch DAILY TD Last administered on 10/18/16 08:45; Start 10/17/16 at 11:30 Bacitracin 58311 unit/Sodium Chloride 250 ml @ 0 mls/hr 1X ONCE IRR ; Start 10/18/16 at 08:45; Stop 10/18/16 at 08:46; Status DC Cefazolin Sodium/ Dextrose 50 ml @ 100 mls/hr 1X ONCE IV ; Start 10/18/16 at 08 :30; Stop 10/18/16 at 08:59; Status DC Active Scripts Active Reported Amlodipine Besylate 10 Mg Tablet 10 Mg PO DAILY Zoloft (Sertraline Hcl) 50 Mg Tablet 50 Mg PO DAILY Lisinopril 40 Mg Tablet 40 Mg PO DAILY Hydrocodone-Apap 5-325 (Hydrocodone Bit/Acetaminophen) 1 Each Tablet 1 Tab PO Q4HRS PRN Fluticasone Propionate Nasal [place] (Fluticasone Propionate) 16 Gm [place].susp 1 [place] NS DAILY Cyclobenzaprine Hcl 10 Mg Tablet 10 Mg PO TID Celebrex (Celecoxib) 200 Mg Capsule 200 Mg PO DAILY 30 Days Vitals/I & O Vital Sign - Last 24 Hours 10/17/16 10/17/16 10/17/16 10/17/16 09:54 11:00 15:00 19:00 Temp 97.8 97.7 97.9 97.8 97.7 97.9 Pulse 73 69 64 59 Resp 18 18 18 B/P (MAP) 122/61 123/53 (76) 114/53 (73) 110/55 (73) Pulse Ox 95 94 94 O2 Delivery Nasal Cannula Nasal Cannula Room Air O2 Flow Rate 2.0 2.0 10/17/16 10/17/16 10/18/16 10/18/16 20:00 22:30 07:00 08:45 Temp 97.9 94.7 97.9 94.7 Pulse 63 68 63 Resp 18 18 B/P (MAP) 111/56 (74) 130/70 (90) 111/56 Pulse Ox 94 92 O2 Delivery Room Air Room Air Room Air ANA M MI MD Oct 18, 2016 09:15
[2016-10-18 09:23] LABS: BASO # 0.1 x10^3/uL (0.0-0.2); BASO % 0 % (0-3); EOS % 1 % (0-3); HEMATOCRIT 34.2 % (36.0-47.0); HEMOGLOBIN 11.3 g/dL (12.0-15.5); LYMPH # 61.8 x10^3/uL (1.0-4.8); LYMPH % 87 % (24-48); MEAN CORPUSCULAR HEMOGLOBIN 31 pg (25-35); MEAN CORPUSCULAR HGB CONC 33 g/dL (31-37); MEAN CORPUSCULAR VOLUME 92 fL (79-100); MONO % 2 % (0-9); NEUT % 10 % (31-73); PLATELET COUNT 168 x10^3/uL (140-400); RED BLOOD COUNT 3.72 x10^6/uL (3.50-5.40); RED CELL DISTRIBUTION WIDTH 15.3 % (11.5-14.5)
[2016-10-18 09:36] LABS: WHITE BLOOD COUNT 71.3 x10^3/uL (4.0-11.0)
[2016-10-18 09:43] LABS: CALCIUM 8.6 mg/dL (8.5-10.1); CREATININE 1.3 mg/dL (0.6-1.0); GFR 40.2; POTASSIUM 3.9 mmol/L (3.5-5.1)
[2016-10-18 09:50] LABS: CHOLESTEROL/HDL RATIO 8.8
--- NOTE | 2016-10-18 10:51 | PDOC ---
PROGRESS NOTES Chief Complaint Chief Complaint syncope, recurrent, likely 2/2 AVB facial trauma laceration with syncope commuted distal nasal bone fx with syncope CLL ,WBC baseline 90k htn hld depression anxiety chronic diarrhea CKD 3 plan: fu with javon, dr. Jacobson, and neuro, onco wbc stable as per onco cont home meds check US carotid A, ok echo done , ok check orthostatic BP PTOT dvt ppx check cdiff PPM today as per card History of Present Illness History of Present Illness ROS: no fever, chills, sob or chest pain feels ok, said " blacked out" at home at the sink High grade AVB for 3sec yesterday am Vitals Vitals Vital Signs Date Time Temp Pulse Resp B/P (MAP) Pulse Ox O2 Delivery O2 Flow Rate FiO2 10/18/16 08:45 63 111/56 10/18/16 08:00 Room Air 2.0 10/18/16 07:00 94.7 18 92 94.7 Physical Exam Physical Exam nose fx wound, facial laceration with stiches General: Alert, Oriented X3 Heart: Normal S1, Normal S2 Lungs: Clear Abdomen: Soft, No tenderness Extremities: No edema, Normal pulses Skin: No breakdown, No significant lesion Labs LABS Laboratory Tests Test 10/18/16 09:05 White Blood Count 71.3 x10^3/uL (4.0-11.0) Red Blood Count 3.72 x10^6/uL (3.50-5.40) Hemoglobin 11.3 g/dL (12.0-15.5) Hematocrit 34.2 % (36.0-47.0) Mean Corpuscular Volume 92 fL (79-100) Mean Corpuscular Hemoglobin 31 pg (25-35) Mean Corpuscular Hemoglobin Concent 33 g/dL (31-37) Red Cell Distribution Width 15.3 % (11.5-14.5) Platelet Count 168 x10^3/uL (140-400) Neutrophils (%) (Auto) 10 % (31-73) Lymphocytes (%) (Auto) 87 % (24-48) Monocytes (%) (Auto) 2 % (0-9) Eosinophils (%) (Auto) 1 % (0-3) Basophils (%) (Auto) 0 % (0-3) Neutrophils # (Auto) 7.4 x10^3uL (1.8-7.7) Lymphocytes # (Auto) 61.8 x10^3/uL (1.0-4.8) Monocytes # (Auto) 1.7 x10^3/uL (0.0-1.1) Eosinophils # (Auto) 0.3 x10^3/uL (0.0-0.7) Basophils # (Auto) 0.1 x10^3/uL (0.0-0.2) Sodium Level 142 mmol/L (136-145) Potassium Level 3.9 mmol/L (3.5-5.1) Chloride Level 105 mmol/L (98-107) Carbon Dioxide Level 27 mmol/L (21-32) Anion Gap 10 (6-14) Blood Urea Nitrogen 20 mg/dL (7-20) Creatinine 1.3 mg/dL (0.6-1.0) Estimated GFR (Cockcroft-Gault) 40.2 Glucose Level 104 mg/dL (70-99) Calcium Level 8.6 mg/dL (8.5-10.1) Triglycerides Level 131 mg/dL (0-150) Cholesterol Level 237 mg/dL (0-200) LDL Cholesterol, Calculated 184 mg/dL (0-100) VLDL Cholesterol, Calculated 26 mg/dL (0-40) Non-HDL Cholesterol Calculated 210 mg/dL (0-129) HDL Cholesterol 27 mg/dL (40-60) Cholesterol/HDL Ratio 8.8 Assessment and Plan Assessmemt and Plan Problems Medical Problems: (1) Abnormal EKG Status: Acute (2) Facial laceration Status: Acute (3) Head injury Status: Acute (4) Leukemia Status: Acute (5) Nasal fracture Status: Acute (6) Syncope Status: Acute Problems: Comment Review of Relevant I have reviewed the following items darek (where applicable) has been applied. Labs Laboratory Tests Test 10/16/16 16:20 10/16/16 18:13 10/17/16 01:25 10/17/16 03:40 White Blood Count 105.5 x10^3/uL (4.0-11.0) 111.1 x10^3/uL (4.0-11.0) Red Blood Count 4.19 x10^6/uL (3.50-5.40) 3.98 x10^6/uL (3.50-5.40) Hemoglobin 12.5 g/dL (12.0-15.5) 11.8 g/dL (12.0-15.5) Hematocrit 39.6 % (36.0-47.0) 37.9 % (36.0-47.0) Mean Corpuscular Volume 94 fL (79-100) 95 fL (79-100) Mean Corpuscular Hemoglobin 30 pg (25-35) 30 pg (25-35) Mean Corpuscular Hemoglobin Concent 32 g/dL (31-37) 31 g/dL (31-37) Red Cell Distribution Width 15.5 % (11.5-14.5) 15.5 % (11.5-14.5) Platelet Count 211 x10^3/uL (140-400) 197 x10^3/uL (140-400) Neutrophils (%) (Auto) 12 % (31-73) 9 % (31-73) Lymphocytes (%) (Auto) 87 % (24-48) 89 % (24-48) Monocytes (%) (Auto) 1 % (0-9) 2 % (0-9) Eosinophils (%) (Auto) 0 % (0-3) 0 % (0-3) Basophils (%) (Auto) 0 % (0-3) 0 % (0-3) Neutrophils # (Auto) 12.3 x10^3uL (1.8-7.7) 10.2 x10^3uL (1.8-7.7) Lymphocytes # (Auto) 91.4 x10^3/uL (1.0-4.8) 98.7 x10^3/uL (1.0-4.8) Monocytes # (Auto) 1.2 x10^3/uL (0.0-1.1) 1.9 x10^3/uL (0.0-1.1) Eosinophils # (Auto) 0.2 x10^3/uL (0.0-0.7) 0.2 x10^3/uL (0.0-0.7) Basophils # (Auto) 0.5 x10^3/uL (0.0-0.2) 0.2 x10^3/uL (0.0-0.2) Segmented Neutrophils % 10 % (35-66) Band Neutrophils % 1 % (0-9) Lymphocytes % 89 % (24-48) Smudge Cells Present Platelet Estimate Adequate (ADEQUATE) Sodium Level 140 mmol/L (136-145) 141 mmol/L (136-145) Potassium Level 4.4 mmol/L (3.5-5.1) 3.8 mmol/L (3.5-5.1) Chloride Level 105 mmol/L (98-107) 105 mmol/L (98-107) Carbon Dioxide Level 25 mmol/L (21-32) 26 mmol/L (21-32) Anion Gap 10 (6-14) 10 (6-14) Blood Urea Nitrogen 18 mg/dL (7-20) 19 mg/dL (7-20) Creatinine 1.2 mg/dL (0.6-1.0) 1.3 mg/dL (0.6-1.0) Estimated GFR (Cockcroft-Gault) 44.0 40.2 Glucose Level 149 mg/dL (70-99) 126 mg/dL (70-99) Calcium Level 9.0 mg/dL (8.5-10.1) 8.5 mg/dL (8.5-10.1) Troponin I Quantitative < 0.017 ng/mL (0.000-0.055) < 0.017 ng/mL (0.000-0.055) Urine Collection Type Unknown Urine Color Yellow Urine Clarity Clear Urine pH 5.0 Urine Specific [place] >=1.030 Urine Protein Negative mg/dL (NEG-TRACE) Urine Glucose (UA) Negative mg/dL (NEG) Urine Ketones (Stick) Negative mg/dL (NEG) Urine Blood Negative (NEG) Urine Nitrite Negative (NEG) Urine Bilirubin Small (NEG) Urine Urobilinogen Dipstick 0.2 mg/dL (0.2 mg/dL) Urine Leukocyte Esterase Small (NEG) Urine RBC 0 /HPF (0-2) Urine WBC 1-4 /HPF (0-4) Urine Squamous Epithelial Cells Few /LPF Urine Bacteria 0 /HPF (0-FEW) Urine Mucus Mod /LPF Test 10/17/16 07:43 10/18/16 09:05 Troponin I Quantitative < 0.017 ng/mL (0.000-0.055) White Blood Count 71.3 x10^3/uL (4.0-11.0) Red Blood Count 3.72 x10^6/uL (3.50-5.40) Hemoglobin 11.3 g/dL (12.0-15.5) Hematocrit 34.2 % (36.0-47.0) Mean Corpuscular Volume 92 fL (79-100) Mean Corpuscular Hemoglobin 31 pg (25-35) Mean Corpuscular Hemoglobin Concent 33 g/dL (31-37) Red Cell Distribution Width 15.3 % (11.5-14.5) Platelet Count 168 x10^3/uL (140-400) Neutrophils (%) (Auto) 10 % (31-73) Lymphocytes (%) (Auto) 87 % (24-48) Monocytes (%) (Auto) 2 % (0-9) Eosinophils (%) (Auto) 1 % (0-3) Basophils (%) (Auto) 0 % (0-3) Neutrophils # (Auto) 7.4 x10^3uL (1.8-7.7) Lymphocytes # (Auto) 61.8 x10^3/uL (1.0-4.8) Monocytes # (Auto) 1.7 x10^3/uL (0.0-1.1) Eosinophils # (Auto) 0.3 x10^3/uL (0.0-0.7) Basophils # (Auto) 0.1 x10^3/uL (0.0-0.2) Sodium Level 142 mmol/L (136-145) Potassium Level 3.9 mmol/L (3.5-5.1) Chloride Level 105 mmol/L (98-107) Carbon Dioxide Level 27 mmol/L (21-32) Anion Gap 10 (6-14) Blood Urea Nitrogen 20 mg/dL (7-20) Creatinine 1.3 mg/dL (0.6-1.0) Estimated GFR (Cockcroft-Gault) 40.2 Glucose Level 104 mg/dL (70-99) Calcium Level 8.6 mg/dL (8.5-10.1) Triglycerides Level 131 mg/dL (0-150) Cholesterol Level 237 mg/dL (0-200) LDL Cholesterol, Calculated 184 mg/dL (0-100) VLDL Cholesterol, Calculated 26 mg/dL (0-40) Non-HDL Cholesterol Calculated 210 mg/dL (0-129) HDL Cholesterol 27 mg/dL (40-60) Cholesterol/HDL Ratio 8.8 Laboratory Tests Test 10/18/16 09:05 White Blood Count 71.3 x10^3/uL (4.0-11.0) Red Blood Count 3.72 x10^6/uL (3.50-5.40) Hemoglobin 11.3 g/dL (12.0-15.5) Hematocrit 34.2 % (36.0-47.0) Mean Corpuscular Volume 92 fL (79-100) Mean Corpuscular Hemoglobin 31 pg (25-35) Mean Corpuscular Hemoglobin Concent 33 g/dL (31-37) Red Cell Distribution Width 15.3 % (11.5-14.5) Platelet Count 168 x10^3/uL (140-400) Neutrophils (%) (Auto) 10 % (31-73) Lymphocytes (%) (Auto) 87 % (24-48) Monocytes (%) (Auto) 2 % (0-9) Eosinophils (%) (Auto) 1 % (0-3) Basophils (%) (Auto) 0 % (0-3) Neutrophils # (Auto) 7.4 x10^3uL (1.8-7.7) Lymphocytes # (Auto) 61.8 x10^3/uL (1.0-4.8) Monocytes # (Auto) 1.7 x10^3/uL (0.0-1.1) Eosinophils # (Auto) 0.3 x10^3/uL (0.0-0.7) Basophils # (Auto) 0.1 x10^3/uL (0.0-0.2) Sodium Level 142 mmol/L (136-145) Potassium Level 3.9 mmol/L (3.5-5.1) Chloride Level 105 mmol/L (98-107) Carbon Dioxide Level 27 mmol/L (21-32) Anion Gap 10 (6-14) Blood Urea Nitrogen 20 mg/dL (7-20) Creatinine 1.3 mg/dL (0.6-1.0) Estimated GFR (Cockcroft-Gault) 40.2 Glucose Level 104 mg/dL (70-99) Calcium Level 8.6 mg/dL (8.5-10.1) Triglycerides Level 131 mg/dL (0-150) Cholesterol Level 237 mg/dL (0-200) LDL Cholesterol, Calculated 184 mg/dL (0-100) VLDL Cholesterol, Calculated 26 mg/dL (0-40) Non-HDL Cholesterol Calculated 210 mg/dL (0-129) HDL Cholesterol 27 mg/dL (40-60) Cholesterol/HDL Ratio 8.8 Microbiology 10/16/16 Urine Culture - Preliminary, Resulted 10/16/16 Urine Culture Result 1 (ILEANA) - Preliminary, Resulted Medications Current Medications Morphine Sulfate 4 mg 1X ONCE IM Last administered on 10/16/16 16:55; Start 10/16/16 at 16:30; Stop 10/16/16 at 16:31; Status DC Ondansetron HCl (Zofran) 4 mg STK-MED ONCE .ROUTE ; Start 10/16/16 at 17:39; Stop 10/16/16 at 17:40; Status DC Ondansetron HCl (Zofran) 4 mg 1X ONCE IV Last administered on 10/16/16 17:44 ; Start 10/16/16 at 17:45; Stop 10/16/16 at 17:46; Status DC Lidocaine/ Epinephrine (Let Topical) 3 ml 1X ONCE TP Last administered on 10/16 18:22; Start 10/16/16 at 18:15; Stop 10/16/16 at 18:16; Status DC Lidocaine/ Epinephrine (Let Topical) 3 ml 1X ONCE TP ; Start 10/16/16 at 18:15 ; Stop 10/16/16 at 18:16; Status DC Morphine Sulfate 2 mg 1X ONCE IV Last administered on 10/16/16 18:24; Start 10/16/16 at 18:15; Stop 10/16/16 at 18:17; Status DC Tetanus/ Diphtheria Toxoids (Tenivac Syringe) 0.5 ml ONCE ONCE VAX IM Last administered on 10/16/16 19:51; Start 10/16/16 at 19:15; Stop 10/16/16 at 19:16 ; Status DC Ondansetron HCl (Zofran) 4 mg PRN Q8HRS PRN IV NAUSEA/VOMITING; Start 10/16/16 at 19:30; Stop 10/17/16 at 14:50; Status DC Morphine Sulfate 2 mg PRN Q2HR PRN IV PAIN Last administered on 10/17/16 04:56 ; Start 10/16/16 at 19:30; Stop 10/17/16 at 14:48; Status DC Acetaminophen (Tylenol) 650 mg PRN Q4HRS PRN PO FEVER; Start 10/16/16 at 19:30 ; Stop 10/17/16 at 14:48; Status DC Morphine Sulfate 4 mg 1X ONCE IM ; Start 10/16/16 at 19:45; Stop 10/16/16 at 19 :46; Status DC Morphine Sulfate 4 mg 1X ONCE IV Last administered on 10/16/16 19:49; Start 10/16/16 at 19:45; Stop 10/16/16 at 19:46; Status DC Morphine Sulfate 4 mg 1X ONCE IV ; Start 10/16/16 at 19:45; Stop 10/16/16 at 19 :46; Status DC Celecoxib (CeleBREX) 200 mg DAILY PO Last administered on 10/18/16 08:44; Start 10/17/16 at 09:00 Cyclobenzaprine HCl (Flexeril) 10 mg TID PO Last administered on 10/18/16 08:44 ; Start 10/16/16 at 22:00 Fluticasone Propionate (Flonase) 1 spray DAILY NS Last administered on 08:43; Start 10/17/16 at 09:00 Acetaminophen/ Hydrocodone Bitart (Lortab 5/325) 1 tab PRN Q4HRS PRN PO SEVERE PAIN; Start 10/16/16 at 21:15 Lisinopril (Prinivil) 40 mg DAILY PO Last administered on 10/18/16 08:45; Start 10/17/16 at 09:00 Sertraline HCl (Zoloft) 50 mg DAILY PO Last administered on 10/18/16 08:44; Start 10/17/16 at 09:00 Sumatriptan Succinate (Imitrex) 25 mg PRN Q2HR PRN PO MIGRAINE HEADACHE; Start 10/16/16 at 21:15 Cyclobenzaprine HCl (Flexeril) 10 mg PRN Q6HRS PRN PO MUSCLE SPASMS/NTE 60MG/ 24HRS; Start 10/16/16 at 22:15 Acetaminophen (Tylenol) 650 mg PRN Q6HRS PRN PO FEVER; Start 10/17/16 at 09:15 Ondansetron HCl (Zofran) 4 mg PRN Q6HRS PRN IV NAUSEA/VOMITING; Start 10/17/16 at 09:15 Morphine Sulfate 2 mg PRN Q2HR PRN IV PAIN; Start 10/17/16 at 09:15 Tramadol HCl (Ultram) 50 mg PRN Q6HRS PRN PO PAIN; Start 10/17/16 at 09:15 Hydralazine HCl (Apresoline) 10 mg PRN Q4HRS PRN IVP ELEVATED BP, SEE COMMENTS ; Start 10/17/16 at 09:15 Docusate Sodium (Colace) 100 mg PRN DAILY PRN PO CONSTIPATION; Start 10/17/16 at 09:15 Lidocaine (Lidoderm) 1 patch DAILY TD Last administered on 10/18/16t 08:45; Start 10/17/16 at 11:30 Bacitracin 37676 unit/Sodium Chloride 250 ml @ 0 mls/hr 1X ONCE IRR ; Start 10/18/16 at 08:45; Stop 10/18/16 at 08:46; Status DC Cefazolin Sodium/ Dextrose 50 ml @ 100 mls/hr 1X ONCE IV ; Start 10/18/16 at 08 :30; Stop 10/18/16 at 08:59; Status DC Active Scripts Active Reported Amlodipine Besylate 10 Mg Tablet 10 Mg PO DAILY Zoloft (Sertraline Hcl) 50 Mg Tablet 50 Mg PO DAILY Lisinopril 40 Mg Tablet 40 Mg PO DAILY Hydrocodone-Apap 5-325 (Hydrocodone Bit/Acetaminophen) 1 Each Tablet 1 Tab PO Q4HRS PRN Fluticasone Propionate Nasal [place] (Fluticasone Propionate) 16 Gm [place].susp 1 [place] NS DAILY Cyclobenzaprine Hcl 10 Mg Tablet 10 Mg PO TID Celebrex (Celecoxib) 200 Mg Capsule 200 Mg PO DAILY 30 Days Vitals/I & O Vital Sign - Last 24 Hours 10/17/16 10/17/16 10/17/16 10/17/16 11:00 15:00 19:00 20:00 Temp 97.8 97.7 97.9 97.8 97.7 97.9 Pulse 69 64 59 Resp 18 18 18 B/P (MAP) 123/53 (76) 114/53 (73) 110/55 (73) Pulse Ox 95 94 94 O2 Delivery Nasal Cannula Nasal Cannula Room Air Room Air O2 Flow Rate 2.0 2.0 10/17/16 10/18/16 10/18/16 10/18/16 22:30 07:00 08:00 08:45 Temp 97.9 94.7 97.9 94.7 Pulse 63 68 63 Resp 18 18 B/P (MAP) 111/56 (74) 130/70 (90) 111/56 Pulse Ox 94 92 O2 Delivery Room Air Room Air Room Air O2 Flow Rate 2.0 BRANDO DANIEL MD Oct 18, 2016 10:51
[2016-10-18] MEDS ORDERED: LIDOCAINE 2%/EPI 1:100,000 20 ML VIAL. ONE (11:42)
[2016-10-18] MEDS ORDERED: MIDAZOLAM HCL/PF 5 MG/5 ML VIAL. ONE (12:23)
[2016-10-18] MEDS ORDERED: fentaNYL PF VIAL 250 MCG/5 ML VIAL ONE (12:23)
[2016-10-18] MEDS ORDERED: MIDAZOLAM HCL/PF 5 MG/5 ML VIAL. IV ONE (13:00)
[2016-10-18] MEDS ORDERED: fentaNYL PF VIAL 250 MCG/5 ML VIAL IV ONE (13:00)
[2016-10-18] MEDS ORDERED: LIDOCAINE 2%/EPI 1:100,000 20 ML VIAL. IJ ONE (13:00)
[2016-10-18 13:28] VITALS: BP 116/53
--- NOTE | 2016-10-18 13:58 | CARD ---
APPROVED REPORT PROCEDURES Successful implantation of Biotronik dual chamber permanent pacemaker. INDICATIONS Complete heart block and severe symptomatic bradycardia. CONSCIOUS SEDATION AGENTS Moderate sedation: 50 min PROCEDURE After explaining the risks, benefits, and alternative options, informed consent was obtained from the patient. The patient was brought to the cardiac catheterization lab and the left chest and shoulder were prepp ed and draped in a sterile manner. 30 mL of 2% lidocaine was infiltrated into the skin and subcutaneous tissues for local anesthesia. A n incision was made over the left infraclavicular fossa and using blunt dissection and cautery a pock et was created. Venous access was obtained in the left subclavian vein and 8 and 6 [place] sheaths we re inserted. Subsequently, a Biotronik bipolar active fixation right ventricular lead model Solia serial number [id number] was advanced under fluoroscopic guidance and the tip was positioned in the right ventricular a pex. Following this, a Biotronik bipolar active fixation right atrial lead model Solia serial number [id number] was placed in the right atrial appendage under fluoroscopy guidance. The leads were secured into place and were attached to a Biotronik dual-chamber permanent pacemaker generator model Eluna 8 DR-T Pro MRI serial number [id number]. This was placed in the pocket that was subsequently closed in 3 layers. Hemostasis was secured. At the end of procedure, the right ventricular lead showed sensing amplitude of 7.8 mV, impedance of 683 ohms and a threshold of 0.6 volts. The right atrial lead showed a sensing amplitude of 1.4 evie volts, impedance of 583 ohms and a threshold of 1.2 volts. Patient tolerated the procedure well. The re were no immediate complications. CONCLUSION Successful implantation of Biotronik dual-chamber permanent pacemaker for complete heart block and se elvin bradycardia
[2016-10-18 15:00] VITALS: BP 115/77
[2016-10-18] MEDS ORDERED: NO ANTICOAGULANT THERAPY. MC PRN (15:15)
--- NOTE | 2016-10-18 15:15 | PDOC ---
MODERATE SEDATION ASSESSMENT RISKS/ALTERNATIVES Risks/Alternatives Risks and alternatives of this type of sedation and procedure discussed with: RISK/ALTERNATIVES: Patient H & P ON CHART H & P H & P on chart and reviewed for co-morbid conditions and appropriate labs. H&P ON CHART: Yes STATUS PREG STATUS ASSESSED: N/A MEDS/ALLERGIES REVIEWED Meds/Allergies Reviewed Medications and Allergies including time and route of recently administered narcotics and sedatives. MEDS/ALLERGIES REVIEWED: Yes ASA RATING ASA RATING: II AIRWAY ASSESSMENT Airway Assessment Airway patency, oral function limitations, presence of caps, crowns, dentures, partials, and ability to extend neck assessed. AIRWAY ASSESSMENT: Yes MALLAMPATI SCORE MALLAMPATI SCORE: II PRE-SEDATION ASSESSMENT PRE-SEDATION ASSESSMENT: Yes JOSE A KEITA MD Oct 18, 2016 15:14
--- NOTE | 2016-10-18 16:50 | RAD ---
AP portable chest radiograph 10/18/2016 Clinical History: Post pacemaker placement. An AP portable erect digital radiograph of the chest was obtained. Comparison study is dated 10/16/2016. A pacemaker is been placed into the left anterior chest. Leads extends to overlie the right atrial and right ventricle of the heart. The cardiac silhouette is borderline enlarged. The thoracic aorta is mildly tortuous. Atherosclerotic calcification of the thoracic aorta is seen. No acute pulmonary infiltrate is noted. No pneumothorax or pleural effusion is seen. The osseous structures are unchanged. Impression: No pneumothorax is seen.
--- NOTE | 2016-10-18 17:46 | EEG ---
DATE OF SERVICE: 10/18/2016 OBJECTIVE: This is a 71-year-old female patient with history of mental status changes and fall. EEG was requested to evaluate cerebral activity and to help rule out seizure. METHODS: Twenty electrodes were applied according to the international 10-20 electrode placement system. EKG monitoring, hyperventilation, intermittent photic stimulation, monopolar and bipolar montages are routinely utilized. The record was obtained on a digital system with video monitoring. FINDINGS: 1. Background: The patient was recorded in the awake, drowsy, and sleep states after sedation for pacemaker placement. The overall background amplitude is 5-10 microvolts. A posterior dominant rhythm of 6-8 Hz is observed. 2. Abnormalities: No specific epileptiform discharge or electrographic seizure is seen. No focal or diffuse slowing. 3. Activation: Hyperventilation was performed with fair efforts and normal response. Intermittent photic stimulation was performed with photic driving. IMPRESSION: This EEG falls into the abnormal category for the awake, drowsy and sleep states. The posterior dominant rhythm of 6-8 Hz is slow for age; however, the patient was recorded post anesthesia for pacemaker placement. Suggest repeat EG at her normal baseline if needed. No focal, lateralizing, specific epileptiform discharge, or electrographic seizure is seen. LISA KAUR MD DR: KENAN/sven JOB#: [id number] / [id number] INES
--- NOTE | 2016-10-18 18:46 | PDOC ---
PROGRESS NOTES Assessment Assessment Syncope, cardiac etiology most likely. AV block, high grade, 3.5 seconds. Fall Distal nasal fracture from falling. CLL Headaches. RECOMMENDATIONS/PLAN: Pacemaker placement by Cardiology on 10/18/16. Consulted Oncology for leukemia. Treat medical and Cardiac diseases. EEG: The posterior dominant rhythm is slowly for age. No epileptic discharges. HISTORY OF THE PRESENT ILLNESS: 71-y-old female with Hx of CLL but not treated recently. She had a fall which resulted her face and nose injury as distal nasal fracture. She stated she did not have fall in the past. Bill focalized motor or sensory deficits noted. PAST MEDICAL HISTORY Cardiovascular: HTN, Hyperlipidemia Pulmonary: Asthma GI: Diverticulosis Heme/Onc: Other (CLL) Hepatobiliary: No pertinent hx Psych: Anxiety Musculoskeletal: Osteoarthritis Rheumatologic: No pertinent hx Infectious disease: No pertinent hx ENT: No pertinent hx Renal/: No pertinent hx Endocrine: Diabetes Dermatology: No pertinent hx PAST SURGICAL HISTORY Cataract Removal, Tonsillectomy, Hysterectomy FAMILY HISTORY Cancer, Diabetes, Heart Disease, Hypertension SOCIAL HISTORY Smoke: No ALCOHOL: none Drugs: None Lives: with Family ALLERGY: Reviewed. MEDICATIONS: Refer to [facility] REVIEW OF SYSTEMS: Constitutional: No malnutrition, cachexia. Head: Nasal fracture this time. Skin: No edema, or rash. Ear: No infection. Eyes: No vision loss or color blindness. Nose: Distal nasal fracture from falling this time. Hearing: No hearing decrease. Neck: No injury. Breast: No history of cancer, masses,or discharges. Cardiac: No SC, arrhythmia. Pulmonary: No COPD. GI: No GI ulcer, GI bleeding. Hematology: CLL. Urinary/genital: UTI. Endocrinologic: No cousin face, craniofacial dysmorphism, polydactyly, goiter. Skeletomuscular: No muscular atrophy, deformity. Neurological: see HP. Psychiatric: Denies drug use/abuse. Otherwise, not [id number] review of systems. PHYSICAL EXAMINATION: General appearance is in acute distress. HEENT: Normocephalic and nontraumatic. Eyes, nose, ears, and throat are unremarkable. Neck is supple. No lymphadenopathy. No crepitus. Cardiovascular: S1, S2, regular rate and rhythm. Pulmonary: Clear to auscultation bilaterally. Abdomen: Bowel sounds are positive. Abdomen is soft, nontender, and nondistended. Extremities: No rash, lesions, or edema. No restriction of range of motion NEUROLOGICAL EXAMINATION: Alert Oriented to time, place and person. PERRL. EOMI. CN: no focal findings. Muscle tone: within normal. Muscle strength: 5- DTR: 2 Plantar reflex: Flexor response bilaterally Gait: not examined in bed. Sensory exam: no abnormal findings. No cerebellar signs elicited. F-T-N test accurate. Objective Objective Vital Signs Date Time Temp Pulse Resp B/P (MAP) Pulse Ox O2 Delivery O2 Flow Rate FiO2 10/18/16 15:00 96 115/77 (90) 94 Room Air 10/18/16 13:57 18 2.0 10/18/16 07:00 94.7 94.7 Intake and Output 10/19/16 07:00 Intake Total 480 ml Balance 480 ml Intake Oral 480 ml # Voids 1 Vitals Signs Vitals VS - Last 72 Hours, by Label Date Time Temp Pulse Resp B/P (MAP) Pulse Ox O2 Delivery O2 Flow Rate FiO2 10/18/16 15:00 96 115/77 (90) 94 Room Air 10/18/16 13:57 18 94 Room Air 2.0 10/18/16 13:28 96 16 94 Room Air 10/18/16 13:27 16 94 Nasal Cannula 10/18/16 08:45 63 111/56 10/18/16 08:00 Room Air 2.0 10/18/16 07:00 94.7 68 18 130/70 (90) 92 Room Air 94.7 10/17/16 22:30 97.9 63 18 111/56 (74) 94 Room Air 97.9 10/17/16 20:00 Room Air 10/17/16 19:00 97.9 59 18 110/55 (73) 94 Room Air 97.9 10/17/16 15:00 97.7 64 18 114/53 (73) 94 Nasal Cannula 2.0 97.7 10/17/16 11:00 97.8 69 18 123/53 (76) 95 Nasal Cannula 2.0 97.8 10/17/16 09:54 73 122/61 10/17/16 08:00 Room Air 2.0 10/17/16 07:00 99.1 73 18 122/61 (81) 91 Nasal Cannula 2.0 99.1 Laboratory Laboratory Laboratory Tests Test 10/18/16 09:05 White Blood Count 71.3 x10^3/uL (4.0-11.0) Red Blood Count 3.72 x10^6/uL (3.50-5.40) Hemoglobin 11.3 g/dL (12.0-15.5) Hematocrit 34.2 % (36.0-47.0) Mean Corpuscular Volume 92 fL (79-100) Mean Corpuscular Hemoglobin 31 pg (25-35) Mean Corpuscular Hemoglobin Concent 33 g/dL (31-37) Red Cell Distribution Width 15.3 % (11.5-14.5) Platelet Count 168 x10^3/uL (140-400) Neutrophils (%) (Auto) 10 % (31-73) Lymphocytes (%) (Auto) 87 % (24-48) Monocytes (%) (Auto) 2 % (0-9) Eosinophils (%) (Auto) 1 % (0-3) Basophils (%) (Auto) 0 % (0-3) Neutrophils # (Auto) 7.4 x10^3uL (1.8-7.7) Lymphocytes # (Auto) 61.8 x10^3/uL (1.0-4.8) Monocytes # (Auto) 1.7 x10^3/uL (0.0-1.1) Eosinophils # (Auto) 0.3 x10^3/uL (0.0-0.7) Basophils # (Auto) 0.1 x10^3/uL (0.0-0.2) Sodium Level 142 mmol/L (136-145) Potassium Level 3.9 mmol/L (3.5-5.1) Chloride Level 105 mmol/L (98-107) Carbon Dioxide Level 27 mmol/L (21-32) Anion Gap 10 (6-14) Blood Urea Nitrogen 20 mg/dL (7-20) Creatinine 1.3 mg/dL (0.6-1.0) Estimated GFR (Cockcroft-Gault) 40.2 Glucose Level 104 mg/dL (70-99) Calcium Level 8.6 mg/dL (8.5-10.1) Triglycerides Level 131 mg/dL (0-150) Cholesterol Level 237 mg/dL (0-200) LDL Cholesterol, Calculated 184 mg/dL (0-100) VLDL Cholesterol, Calculated 26 mg/dL (0-40) Non-HDL Cholesterol Calculated 210 mg/dL (0-129) HDL Cholesterol 27 mg/dL (40-60) Cholesterol/HDL Ratio 8.8 Microbiology 10/16/16 Urine Culture - Final, Complete 10/16/16 Urine Culture Result 1 (ILEANA) - Final, Complete Medication Medications Current Medications Bacitracin 14574 unit/Sodium Chloride 250 ml @ 0 mls/hr 1X ONCE IRR Last administered on 10/18/16 13:26; Start 10/18/16 at 08:45; Stop 10/18/16 at 08:46; Status DC Cefazolin Sodium/ Dextrose 50 ml @ 100 mls/hr 1X ONCE IV Last administered on 10/18/16 13:26; Start 10/18/16 at 08:30; Stop 10/18/16 at 08:59; Status DC Cefazolin Sodium/ Dextrose 50 ml @ 100 mls/hr 1X ONCE IV ; Start 10/18/16 at 19 :30; Stop 10/18/16 at 19:59 Cefazolin Sodium/ Dextrose 50 ml @ As Directed STK-MED ONCE IV ; Start 10/18/16 at 12:23; Stop 10/18/16 at 12:24; Status DC Fentanyl Citrate (Fentanyl 5ml Vial) 150 mcg 1X ONCE IV Last administered on 13:27; Start 10/18/16 at 13:00; Stop 10/18/16 at 13:01; Status DC Fentanyl Citrate (Fentanyl 5ml Vial) 250 mcg STK-MED ONCE .ROUTE ; Start at 12:23; Stop 10/18/16 at 12:24; Status DC Info 1 ea CONT PRN PRN MC PER PROTOCOL; Start 10/18/16 at 15:15 Lidocaine/ Epinephrine (Xylocaine 2%-Epi 1:100,000) 20 ml STK-MED ONCE .ROUTE ; Start 10/18/16 at 11:42; Stop 10/18/16 at 11:43; Status DC Lidocaine/ Epinephrine (Xylocaine 2%-Epi 1:100,000) 30 ml 1X ONCE IJ Last administered on 10/18/16 13:28; Start 10/18/16 at 13:00; Stop 10/18/16 at 13:01; Status DC Midazolam HCl (Versed) 5 mg 1X ONCE IV Last administered on 9/1/17at 13:27; Start 10/18/16 at 13:00; Stop 10/18/16 at 13:01; Status DC Midazolam HCl (Versed) 5 mg STK-MED ONCE .ROUTE ; Start 10/18/16 at 12:23; Stop 10/18/16 at 12:25; Status DC Comment Review of Relevant I have reviewed the following items darek (where applicable) has been applied. LISA KAUR MD Oct 18, 2016 18:46
[2016-10-18 19:29] VITALS: BP 111/64
[2016-10-18 23:06] VITALS: BP 103/76
[2016-10-19 02:38] VITALS: BP 126/57
[2016-10-19 07:00] VITALS: BP 130/56
[2016-10-19] MEDS: LISINOPRIL 40 MG TABLET. PO SCH (09:04)
[2016-10-19] MEDS: SERTRALINE 50 MG TABLET. PO SCH (09:04)
[2016-10-19] MEDS: CELECOXIB 200 MG CAPSULE. PO SCH (09:04)
[2016-10-19] MEDS: CYCLOBENZAPRINE 10 MG TABLET. PO SCH (09:04)
--- NOTE | 2016-10-19 09:24 | RAD ---
Examination: 2 views of the chest History: History of postop pacemaker placement. Comparison: 10/18/2016 Findings: The cardiomediastinal silhouette grossly appears unremarkable. Left-sided cardiac pacer is unchanged. There is no acute infiltrate or visualize pneumothorax. Minimal prominent bilateral interstitial lung markings similar to prior exam. Mild degenerative changes thoracic spine. Impression: 1. Unchanged left-sided cardiac pacer. No evidence of pneumothorax.
--- NOTE | 2016-10-19 10:09 | PDOC ---
PROGRESS NOTES Subjective Subjective She admits some soreness in her neck with movement and right rib cage discomfort. Objective Objective Vital Signs Date Time Temp Pulse Resp B/P (MAP) Pulse Ox O2 Delivery O2 Flow Rate FiO2 10/19/16 09:04 72 130/56 10/19/16 08:00 Room Air 10/19/16 07:00 98.2 18 97 98.2 10/18/16 13:57 2.0 Intake and Output 10/20/16 07:00 Intake Total 250 ml Balance 250 ml Intake Oral 250 ml Physical Exam Physical Exam She remains independent with her mobility and some pain on extension of her neck and tenderness to palpation over right lateral ribs. Assessment Assessment Problems Medical Problems: (1) Abnormal EKG Status: Acute (2) Facial laceration Status: Acute (3) Head injury Status: Acute (4) Leukemia Status: Acute (5) Nasal fracture Status: Acute (6) Syncope Status: Acute Plan Plan of Senior Living when medically stable. Comment Review of Relevant I have reviewed the following items darek (where applicable) has been applied. Labs Laboratory Tests Test 10/18/16 05:40 10/18/16 09:05 Clostridium difficile Toxin (PCR) Negative (Negative) White Blood Count 71.3 x10^3/uL (4.0-11.0) Red Blood Count 3.72 x10^6/uL (3.50-5.40) Hemoglobin 11.3 g/dL (12.0-15.5) Hematocrit 34.2 % (36.0-47.0) Mean Corpuscular Volume 92 fL (79-100) Mean Corpuscular Hemoglobin 31 pg (25-35) Mean Corpuscular Hemoglobin Concent 33 g/dL (31-37) Red Cell Distribution Width 15.3 % (11.5-14.5) Platelet Count 168 x10^3/uL (140-400) Neutrophils (%) (Auto) 10 % (31-73) Lymphocytes (%) (Auto) 87 % (24-48) Monocytes (%) (Auto) 2 % (0-9) Eosinophils (%) (Auto) 1 % (0-3) Basophils (%) (Auto) 0 % (0-3) Neutrophils # (Auto) 7.4 x10^3uL (1.8-7.7) Lymphocytes # (Auto) 61.8 x10^3/uL (1.0-4.8) Monocytes # (Auto) 1.7 x10^3/uL (0.0-1.1) Eosinophils # (Auto) 0.3 x10^3/uL (0.0-0.7) Basophils # (Auto) 0.1 x10^3/uL (0.0-0.2) Sodium Level 142 mmol/L (136-145) Potassium Level 3.9 mmol/L (3.5-5.1) Chloride Level 105 mmol/L (98-107) Carbon Dioxide Level 27 mmol/L (21-32) Anion Gap 10 (6-14) Blood Urea Nitrogen 20 mg/dL (7-20) Creatinine 1.3 mg/dL (0.6-1.0) Estimated GFR (Cockcroft-Gault) 40.2 Glucose Level 104 mg/dL (70-99) Calcium Level 8.6 mg/dL (8.5-10.1) Triglycerides Level 131 mg/dL (0-150) Cholesterol Level 237 mg/dL (0-200) LDL Cholesterol, Calculated 184 mg/dL (0-100) VLDL Cholesterol, Calculated 26 mg/dL (0-40) Non-HDL Cholesterol Calculated 210 mg/dL (0-129) HDL Cholesterol 27 mg/dL (40-60) Cholesterol/HDL Ratio 8.8 Microbiology 10/16/16 Urine Culture - Final, Complete 10/16/16 Urine Culture Result 1 (ILEANA) - Final, Complete Medications Current Medications Morphine Sulfate 4 mg 1X ONCE IM Last administered on 10/16/16 16:55; Start 10/16/16 at 16:30; Stop 10/16/16 at 16:31; Status DC Ondansetron HCl (Zofran) 4 mg STK-MED ONCE .ROUTE ; Start 10/16/16 at 17:39; Stop 10/16/16 at 17:40; Status DC Ondansetron HCl (Zofran) 4 mg 1X ONCE IV Last administered on 10/16/16 17:44 ; Start 10/16/16 at 17:45; Stop 10/16/16 at 17:46; Status DC Lidocaine/ Epinephrine (Let Topical) 3 ml 1X ONCE TP Last administered on 10/16 18:22; Start 10/16/16 at 18:15; Stop 10/16/16 at 18:16; Status DC Lidocaine/ Epinephrine (Let Topical) 3 ml 1X ONCE TP ; Start 10/16/16 at 18:15 ; Stop 10/16/16 at 18:16; Status DC Morphine Sulfate 2 mg 1X ONCE IV Last administered on 10/16/16 18:24; Start 10/16/16 at 18:15; Stop 10/16/16 at 18:17; Status DC Tetanus/ Diphtheria Toxoids (Tenivac Syringe) 0.5 ml ONCE ONCE VAX IM Last administered on 10/16/16 19:51; Start 10/16/16 at 19:15; Stop 10/16/16 at 19:16 ; Status DC Ondansetron HCl (Zofran) 4 mg PRN Q8HRS PRN IV NAUSEA/VOMITING; Start 10/16/16 at 19:30; Stop 10/17/16 at 14:50; Status DC Morphine Sulfate 2 mg PRN Q2HR PRN IV PAIN Last administered on 10/17/16 04:56 ; Start 10/16/16 at 19:30; Stop 10/17/16 at 14:48; Status DC Acetaminophen (Tylenol) 650 mg PRN Q4HRS PRN PO FEVER; Start 10/16/16 at 19:30 ; Stop 10/17/16 at 14:48; Status DC Morphine Sulfate 4 mg 1X ONCE IM ; Start 10/16/16 at 19:45; Stop 10/16/16 at 19 :46; Status DC Morphine Sulfate 4 mg 1X ONCE IV Last administered on 10/16/16 19:49; Start 10/16/16 at 19:45; Stop 10/16/16 at 19:46; Status DC Morphine Sulfate 4 mg 1X ONCE IV ; Start 10/16/16 at 19:45; Stop 10/16/16 at 19 :46; Status DC Celecoxib (CeleBREX) 200 mg DAILY PO Last administered on 10/19/16 09:04; Start 10/17/16 at 09:00 Cyclobenzaprine HCl (Flexeril) 10 mg TID PO Last administered on 10/19/16 09:04 ; Start 10/16/16 at 22:00 Fluticasone Propionate (Flonase) 1 spray DAILY NS Last administered on 08:43; Start 10/17/16 at 09:00 Acetaminophen/ Hydrocodone Bitart (Lortab 5/325) 1 tab PRN Q4HRS PRN PO SEVERE PAIN; Start 10/16/16 at 21:15 Lisinopril (Prinivil) 40 mg DAILY PO Last administered on 10/19/16 09:04; Start 10/17/16 at 09:00 Sertraline HCl (Zoloft) 50 mg DAILY PO Last administered on 10/19/16 09:04; Start 10/17/16 at 09:00 Sumatriptan Succinate (Imitrex) 25 mg PRN Q2HR PRN PO MIGRAINE HEADACHE; Start 10/16/16 at 21:15 Cyclobenzaprine HCl (Flexeril) 10 mg PRN Q6HRS PRN PO MUSCLE SPASMS/NTE 60MG/ 24HRS; Start 10/16/16 at 22:15 Acetaminophen (Tylenol) 650 mg PRN Q6HRS PRN PO FEVER; Start 10/17/16 at 09:15 Ondansetron HCl (Zofran) 4 mg PRN Q6HRS PRN IV NAUSEA/VOMITING; Start 10/17/16 at 09:15 Morphine Sulfate 2 mg PRN Q2HR PRN IV PAIN; Start 10/17/16 at 09:15 Tramadol HCl (Ultram) 50 mg PRN Q6HRS PRN PO PAIN; Start 10/17/16 at 09:15 Hydralazine HCl (Apresoline) 10 mg PRN Q4HRS PRN IVP ELEVATED BP, SEE COMMENTS ; Start 10/17/16 at 09:15 Docusate Sodium (Colace) 100 mg PRN DAILY PRN PO CONSTIPATION; Start 10/17/16 at 09:15 Lidocaine (Lidoderm) 1 patch DAILY TD Last administered on 10/18/16 08:45; Start 10/17/16 at 11:30 Bacitracin 83086 unit/Sodium Chloride 250 ml @ 0 mls/hr 1X ONCE IRR Last administered on 10/18/16 13:26; Start 10/18/16 at 08:45; Stop 10/18/16 at 08:46; Status DC Cefazolin Sodium/ Dextrose 50 ml @ 100 mls/hr 1X ONCE IV Last administered on 10/18/16 13:26; Start 10/18/16 at 08:30; Stop 10/18/16 at 08:59; Status DC Lidocaine/ Epinephrine (Xylocaine 2%-Epi 1:100,000) 20 ml STK-MED ONCE .ROUTE ; Start 10/18/16 at 11:42; Stop 10/18/16 at 11:43; Status DC Cefazolin Sodium/ Dextrose 50 ml @ As Directed STK-MED ONCE IV ; Start 10/18/16 at 12:23; Stop 10/18/16 at 12:24; Status DC Fentanyl Citrate (Fentanyl 5ml Vial) 250 mcg STK-MED ONCE .ROUTE ; Start at 12:23; Stop 10/18/16 at 12:24; Status DC Midazolam HCl (Versed) 5 mg STK-MED ONCE .ROUTE ; Start 10/18/16 at 12:23; Stop 10/18/16 at 12:25; Status DC Midazolam HCl (Versed) 5 mg 1X ONCE IV Last administered on 10/18/16 13:27; Start 10/18/16 at 13:00; Stop 10/18/16 at 13:01; Status DC Fentanyl Citrate (Fentanyl 5ml Vial) 150 mcg 1X ONCE IV Last administered on 13:27; Start 10/18/16 at 13:00; Stop 10/18/16 at 13:01; Status DC Lidocaine/ Epinephrine (Xylocaine 2%-Epi 1:100,000) 30 ml 1X ONCE IJ Last administered on 10/18/16 13:28; Start 10/18/16 at 13:00; Stop 10/18/16 at 13:01; Status DC Info 1 ea CONT PRN PRN MC PER PROTOCOL; Start 10/18/16 at 15:15 Cefazolin Sodium/ Dextrose 50 ml @ 100 mls/hr 1X ONCE IV Last administered on 10/18/16 20:23; Start 10/18/16 at 19:30; Stop 10/18/16 at 19:59; Status DC Active Scripts Active Reported Amlodipine Besylate 10 Mg Tablet 10 Mg PO DAILY Zoloft (Sertraline Hcl) 50 Mg Tablet 50 Mg PO DAILY Lisinopril 40 Mg Tablet 40 Mg PO DAILY Hydrocodone-Apap 5-325 (Hydrocodone Bit/Acetaminophen) 1 Each Tablet 1 Tab PO Q4HRS PRN Fluticasone Propionate Nasal [place] (Fluticasone Propionate) 16 Gm [place].susp 1 [place] NS DAILY Cyclobenzaprine Hcl 10 Mg Tablet 10 Mg PO TID Celebrex (Celecoxib) 200 Mg Capsule 200 Mg PO DAILY 30 Days Vitals/I & O Vital Sign - Last 24 Hours 10/18/16 10/18/16 10/18/16 10/18/16 13:27 13:28 13:45 13:57 Pulse 96 Resp 16 16 18 Pulse Ox 94 94 94 O2 Delivery Nasal Cannula Room Air Room Air Room Air O2 Flow Rate 2.0 10/18/16 10/18/16 10/18/16 10/18/16 15:00 19:29 20:11 23:06 Temp 97.5 97.6 97.5 97.6 Pulse 96 76 74 Resp 18 16 B/P (MAP) 115/77 (90) 111/64 (80) 103/76 (85) Pulse Ox 94 92 93 O2 Delivery Room Air Room Air Room Air Room Air 10/19/16 10/19/16 10/19/16 10/19/16 02:38 07:00 08:00 09:04 Temp 98.1 98.2 98.1 98.2 Pulse 69 72 72 Resp 16 18 B/P (MAP) 126/57 (80) 130/56 (80) 130/56 Pulse Ox 94 97 O2 Delivery Room Air Room Air Room Air Intake and Output 10/19/16 10/19/16 10/20/16 15:00 23:00 07:00 Intake Total 250 ml Balance 250 ml SHELIA DUKE MD Oct 19, 2016 10:08
--- NOTE | 2016-10-19 10:48 | PDOC ---
PROGRESS NOTES Subjective Subjective Patient feeling better. Objective Objective Vital Signs Date Time Temp Pulse Resp B/P (MAP) Pulse Ox O2 Delivery O2 Flow Rate FiO2 10/19/16 09:04 72 130/56 10/19/16 08:00 Room Air 10/19/16 07:00 98.2 18 97 98.2 10/18/16 13:57 2.0 Intake and Output 10/20/16 06:59 Intake Total 250 ml Balance 250 ml Intake Oral 250 ml Physical Exam Abdomen: Soft, No tenderness Heart: Normal S1, Normal S2 Extremities: No edema, Normal pulses General: Alert, Oriented X3 HEENT: Other (laceration to upper lip and bridge of nose) Lungs: Clear to auscultation, Normal air movement MUSCULOSKELETAL: Osteoarthritic changes both hands Neck: Supple Neuro: Normal speech Psych/Mental Status: Mental status NL Assessment Assessment 1. Syncope; secondary to complete heart block and severe bradycardia. Patient underwent successful permanent pacemaker implantation yesterday. Chest x-ray without any pneumothorax and device check showed normal function. Okay for discharge from cardiac standpoint 2. Hypertension; well controlled 3. CLL - continue current treatment Follow-up with our office in 1 month Plan Plan of Care Problems Medical Problems: (1) Abnormal EKG Status: Acute (2) Facial laceration Status: Acute (3) Head injury Status: Acute (4) Leukemia Status: Acute (5) Nasal fracture Status: Acute (6) Syncope Status: Acute Comment Review of Relevant I have reviewed the following items darek (where applicable) has been applied. Labs Microbiology 10/16/16 Urine Culture - Final, Complete 10/16/16 Urine Culture Result 1 (ILEANA) - Final, Complete Medications Current Medications Cefazolin Sodium/ Dextrose 50 ml @ 100 mls/hr 1X ONCE IV Last administered on 10/18/16 20:23; Start 10/18/16 at 19:30; Stop 10/18/16 at 19:59; Status DC Cefazolin Sodium/ Dextrose 50 ml @ As Directed STK-MED ONCE IV ; Start 10/18/16 at 12:23; Stop 10/18/16 at 12:24; Status DC Fentanyl Citrate (Fentanyl 5ml Vial) 150 mcg 1X ONCE IV Last administered on 13:27; Start 10/18/16 at 13:00; Stop 10/18/16 at 13:01; Status DC Fentanyl Citrate (Fentanyl 5ml Vial) 250 mcg STK-MED ONCE .ROUTE ; Start at 12:23; Stop 10/18/16 at 12:24; Status DC Info 1 ea CONT PRN PRN MC PER PROTOCOL; Start 10/18/16 at 15:15 Lidocaine/ Epinephrine (Xylocaine 2%-Epi 1:100,000) 20 ml STK-MED ONCE .ROUTE ; Start 10/18/16 at 11:42; Stop 10/18/16 at 11:43; Status DC Lidocaine/ Epinephrine (Xylocaine 2%-Epi 1:100,000) 30 ml 1X ONCE IJ Last administered on 10/18/16 13:28; Start 10/18/16 at 13:00; Stop 10/18/16 at 13:01; Status DC Midazolam HCl (Versed) 5 mg 1X ONCE IV Last administered on 10/18/16t 13:27; Start 10/18/16 at 13:00; Stop 10/18/16 at 13:01; Status DC Midazolam HCl (Versed) 5 mg STK-MED ONCE .ROUTE ; Start 10/18/16 at 12:23; Stop 10/18/16 at 12:25; Status DC Vitals/I & O Vital Sign - Last 24 Hours 10/18/16 10/18/16 10/18/16 10/18/16 13:27 13:28 13:45 13:57 Pulse 96 Resp 16 16 18 Pulse Ox 94 94 94 O2 Delivery Nasal Cannula Room Air Room Air Room Air O2 Flow Rate 2.0 10/18/16 10/18/16 10/18/16 10/18/16 15:00 19:29 20:11 23:06 Temp 97.5 97.6 97.5 97.6 Pulse 96 76 74 Resp 18 16 B/P (MAP) 115/77 (90) 111/64 (80) 103/76 (85) Pulse Ox 94 92 93 O2 Delivery Room Air Room Air Room Air Room Air 10/19/16 10/19/16 10/19/16 10/19/16 02:38 07:00 08:00 09:04 Temp 98.1 98.2 98.1 98.2 Pulse 69 72 72 Resp 16 18 B/P (MAP) 126/57 (80) 130/56 (80) 130/56 Pulse Ox 94 97 O2 Delivery Room Air Room Air Room Air Intake and Output 10/19/16 10/19/16 10/20/16 14:59 22:59 06:59 Intake Total 250 ml Balance 250 ml JOSE A KEITA MD Oct 19, 2016 10:47
[2016-10-19 11:00] VITALS: BP 112/56
--- NOTE | 2016-10-19 14:29 | PDOC ---
PROGRESS NOTES Assessment Assessment Syncope, cardiac etiology most likely. AV block, high grade, 3.5 seconds. Fall Distal nasal fracture from falling. CLL Headaches. RECOMMENDATIONS/PLAN: Pacemaker placement by Cardiology on 10/18/16. Consulted Oncology for leukemia. Treat medical and Cardiac diseases. FU with PCP. FU with Cardiology. FU with neurology in 1 month as needed. EEG: The posterior dominant rhythm is slowly for age. No epileptic discharges. HISTORY OF THE PRESENT ILLNESS: 71-y-old female with Hx of CLL but not treated recently. She had a fall which resulted her face and nose injury as distal nasal fracture. She stated she did not have fall in the past. Bill focalized motor or sensory deficits noted. PAST MEDICAL HISTORY Cardiovascular: HTN, Hyperlipidemia Pulmonary: Asthma GI: Diverticulosis Heme/Onc: Other (CLL) Hepatobiliary: No pertinent hx Psych: Anxiety Musculoskeletal: Osteoarthritis Rheumatologic: No pertinent hx Infectious disease: No pertinent hx ENT: No pertinent hx Renal/: No pertinent hx Endocrine: Diabetes Dermatology: No pertinent hx PAST SURGICAL HISTORY Cataract Removal, Tonsillectomy, Hysterectomy FAMILY HISTORY Cancer, Diabetes, Heart Disease, Hypertension SOCIAL HISTORY Smoke: No ALCOHOL: none Drugs: None Lives: with Family ALLERGY: Reviewed. MEDICATIONS: Refer to [facility] REVIEW OF SYSTEMS: Constitutional: No malnutrition, cachexia. Head: Nasal fracture this time. Skin: No edema, or rash. Ear: No infection. Eyes: No vision loss or color blindness. Nose: Distal nasal fracture from falling this time. Hearing: No hearing decrease. Neck: No injury. Breast: No history of cancer, masses,or discharges. Cardiac: No MS, arrhythmia. Pulmonary: No COPD. GI: No GI ulcer, GI bleeding. Hematology: CLL. Urinary/genital: UTI. Endocrinologic: No cousin face, craniofacial dysmorphism, polydactyly, goiter. Skeletomuscular: No muscular atrophy, deformity. Neurological: see HP. Psychiatric: Denies drug use/abuse. Otherwise, not [id number] review of systems. PHYSICAL EXAMINATION: General appearance is in acute distress. HEENT: Normocephalic and nontraumatic. Eyes, nose, ears, and throat are unremarkable. Neck is supple. No lymphadenopathy. No crepitus. Cardiovascular: S1, S2, regular rate and rhythm. Pulmonary: Clear to auscultation bilaterally. Abdomen: Bowel sounds are positive. Abdomen is soft, nontender, and nondistended. Extremities: No rash, lesions, or edema. No restriction of range of motion NEUROLOGICAL EXAMINATION: Alert Oriented to time, place and person. PERRL. EOMI. CN: no focal findings. Muscle tone: within normal. Muscle strength: 5- DTR: 2 Plantar reflex: Flexor response bilaterally Gait: not examined in bed. Sensory exam: no abnormal findings. No cerebellar signs elicited. F-T-N test accurate. Objective Objective Vital Signs Date Time Temp Pulse Resp B/P (MAP) Pulse Ox O2 Delivery O2 Flow Rate FiO2 10/19/16 09:04 72 130/56 10/19/16 08:00 Room Air 10/19/16 07:00 98.2 18 97 98.2 10/18/16 13:57 2.0 Intake and Output 10/20/16 06:59 Intake Total 250 ml Balance 250 ml Intake Oral 250 ml Vitals Signs Vitals VS - Last 72 Hours, by Label Date Time Temp Pulse Resp B/P (MAP) Pulse Ox O2 Delivery O2 Flow Rate FiO2 10/19/16 09:04 72 130/56 10/19/16 08:00 Room Air 10/19/16 07:00 98.2 72 18 130/56 (80) 97 Room Air 98.2 10/19/16 02:38 98.1 69 16 126/57 (80) 94 Room Air 98.1 10/18/16 23:06 97.6 74 16 103/76 (85) 93 Room Air 97.6 10/18/16 20:11 Room Air 10/18/16 19:29 97.5 76 18 111/64 (80) 92 Room Air 97.5 10/18/16 15:00 96 115/77 (90) 94 Room Air 10/18/16 13:57 18 94 Room Air 2.0 10/18/16 13:45 Room Air 10/18/16 13:28 96 16 94 Room Air 10/18/16 13:27 16 94 Nasal Cannula 10/18/16 08:45 63 111/56 10/18/16 08:00 Room Air 2.0 10/18/16 07:00 94.7 68 18 130/70 (90) 92 Room Air 94.7 Laboratory Laboratory Microbiology 10/16/16 Urine Culture - Final, Complete 10/16/16 Urine Culture Result 1 (ILEANA) - Final, Complete Medication Medications Current Medications Cefazolin Sodium/ Dextrose 50 ml @ 100 mls/hr 1X ONCE IV Last administered on 10/18/16t 20:23; Start 10/18/16 at 19:30; Stop 10/18/16 at 19:59; Status DC Info 1 ea CONT PRN PRN MC PER PROTOCOL; Start 10/18/16 at 15:15 Comment Review of Relevant I have reviewed the following items darek (where applicable) has been applied. LISA KAUR MD Oct 19, 2016 14:29
--- NOTE | 2016-10-19 14:41 | PDOC ---
PROGRESS NOTES Chief Complaint Chief Complaint syncope, recurrent, likely 2/2 AVB facial trauma laceration with syncope commuted distal nasal bone fx with syncope PMH: CLL ,WBC baseline 90k htn hld depression anxiety chronic diarrhea CKD 3 History of Present Illness History of Present Illness Pt had pacemaker placed yesterday, has some tenderness at site. Pt would like to go home, plan to discharge as per Dr. Landa: ok for discharge from cardiology standpoint Vitals Vitals Vital Signs Date Time Temp Pulse Resp B/P (MAP) Pulse Ox O2 Delivery O2 Flow Rate FiO2 10/19/16 09:04 72 130/56 10/19/16 08:00 Room Air 10/19/16 07:00 98.2 18 97 98.2 10/18/16 13:57 2.0 Physical Exam Physical Exam nose fx wound, facial laceration with stiches General: Alert, Oriented X3 Heart: Normal S1, Normal S2 Lungs: Clear Abdomen: Soft, No tenderness Extremities: No edema, Normal pulses Skin: Other (facial laceration, multiple bruises) Review of Systems Review of Systems neck soreness with movement rib cage tenderness no fevers Assessment and Plan Assessmemt and Plan Problems Medical Problems: (1) Abnormal EKG Status: Acute (2) Facial laceration Status: Acute (3) Head injury Status: Acute (4) Leukemia Status: Acute (5) Nasal fracture Status: Acute (6) Syncope Status: Acute Syncope secondary to complete heart block and severe bradycardia HTN - well controlled CLL - stage I 1. Permanent pacemaker implantation on 10/18, CXR without any pneumothorax. Per Dr. Landa, robertaay for discharge from cardiac standpoint 2. 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 Discharge to home 4. Follow up with PCP in 1 week 5. Follow up with Dr. Park in 2-3 weeks 6. Follow up with cardiology office in 1 month Problems: Comment Review of Relevant I have reviewed the following items darek (where applicable) has been applied. Labs Laboratory Tests Test 10/18/16 05:40 10/18/16 09:05 Clostridium difficile Toxin (PCR) Negative (Negative) White Blood Count 71.3 x10^3/uL (4.0-11.0) Red Blood Count 3.72 x10^6/uL (3.50-5.40) Hemoglobin 11.3 g/dL (12.0-15.5) Hematocrit 34.2 % (36.0-47.0) Mean Corpuscular Volume 92 fL (79-100) Mean Corpuscular Hemoglobin 31 pg (25-35) Mean Corpuscular Hemoglobin Concent 33 g/dL (31-37) Red Cell Distribution Width 15.3 % (11.5-14.5) Platelet Count 168 x10^3/uL (140-400) Neutrophils (%) (Auto) 10 % (31-73) Lymphocytes (%) (Auto) 87 % (24-48) Monocytes (%) (Auto) 2 % (0-9) Eosinophils (%) (Auto) 1 % (0-3) Basophils (%) (Auto) 0 % (0-3) Neutrophils # (Auto) 7.4 x10^3uL (1.8-7.7) Lymphocytes # (Auto) 61.8 x10^3/uL (1.0-4.8) Monocytes # (Auto) 1.7 x10^3/uL (0.0-1.1) Eosinophils # (Auto) 0.3 x10^3/uL (0.0-0.7) Basophils # (Auto) 0.1 x10^3/uL (0.0-0.2) Sodium Level 142 mmol/L (136-145) Potassium Level 3.9 mmol/L (3.5-5.1) Chloride Level 105 mmol/L (98-107) Carbon Dioxide Level 27 mmol/L (21-32) Anion Gap 10 (6-14) Blood Urea Nitrogen 20 mg/dL (7-20) Creatinine 1.3 mg/dL (0.6-1.0) Estimated GFR (Cockcroft-Gault) 40.2 Glucose Level 104 mg/dL (70-99) Calcium Level 8.6 mg/dL (8.5-10.1) Triglycerides Level 131 mg/dL (0-150) Cholesterol Level 237 mg/dL (0-200) LDL Cholesterol, Calculated 184 mg/dL (0-100) VLDL Cholesterol, Calculated 26 mg/dL (0-40) Non-HDL Cholesterol Calculated 210 mg/dL (0-129) HDL Cholesterol 27 mg/dL (40-60) Cholesterol/HDL Ratio 8.8 Microbiology 10/16/16 Urine Culture - Final, Complete 10/16/16 Urine Culture Result 1 (ILEANA) - Final, Complete Medications Current Medications Morphine Sulfate 4 mg 1X ONCE IM Last administered on 10/16/16 16:55; Start 10/16/16 at 16:30; Stop 10/16/16 at 16:31; Status DC Ondansetron HCl (Zofran) 4 mg STK-MED ONCE .ROUTE ; Start 10/16/16 at 17:39; Stop 10/16/16 at 17:40; Status DC Ondansetron HCl (Zofran) 4 mg 1X ONCE IV Last administered on 10/16/16 17:44 ; Start 10/16/16 at 17:45; Stop 10/16/16 at 17:46; Status DC Lidocaine/ Epinephrine (Let Topical) 3 ml 1X ONCE TP Last administered on 10/16 18:22; Start 10/16/16 at 18:15; Stop 10/16/16 at 18:16; Status DC Lidocaine/ Epinephrine (Let Topical) 3 ml 1X ONCE TP ; Start 10/16/16 at 18:15 ; Stop 10/16/16 at 18:16; Status DC Morphine Sulfate 2 mg 1X ONCE IV Last administered on 10/16/16 18:24; Start 10/16/16 at 18:15; Stop 10/16/16 at 18:17; Status DC Tetanus/ Diphtheria Toxoids (Tenivac Syringe) 0.5 ml ONCE ONCE VAX IM Last administered on 10/16/16 19:51; Start 10/16/16 at 19:15; Stop 10/16/16 at 19:16 ; Status DC Ondansetron HCl (Zofran) 4 mg PRN Q8HRS PRN IV NAUSEA/VOMITING; Start 10/16/16 at 19:30; Stop 10/17/16 at 14:50; Status DC Morphine Sulfate 2 mg PRN Q2HR PRN IV PAIN Last administered on 10/17/16 04:56 ; Start 10/16/16 at 19:30; Stop 10/17/16 at 14:48; Status DC Acetaminophen (Tylenol) 650 mg PRN Q4HRS PRN PO FEVER; Start 10/16/16 at 19:30 ; Stop 10/17/16 at 14:48; Status DC Morphine Sulfate 4 mg 1X ONCE IM ; Start 10/16/16 at 19:45; Stop 10/16/16 at 19 :46; Status DC Morphine Sulfate 4 mg 1X ONCE IV Last administered on 10/16/16 19:49; Start 10/16/16 at 19:45; Stop 10/16/16 at 19:46; Status DC Morphine Sulfate 4 mg 1X ONCE IV ; Start 10/16/16 at 19:45; Stop 10/16/16 at 19 :46; Status DC Celecoxib (CeleBREX) 200 mg DAILY PO Last administered on 10/19/16 09:04; Start 10/17/16 at 09:00 Cyclobenzaprine HCl (Flexeril) 10 mg TID PO Last administered on 10/19/16 09:04 ; Start 10/16/16 at 22:00 Fluticasone Propionate (Flonase) 1 spray DAILY NS Last administered on 08:43; Start 10/17/16 at 09:00 Acetaminophen/ Hydrocodone Bitart (Lortab 5/325) 1 tab PRN Q4HRS PRN PO SEVERE PAIN; Start 10/16/16 at 21:15 Lisinopril (Prinivil) 40 mg DAILY PO Last administered on 10/19/16 09:04; Start 10/17/16 at 09:00 Sertraline HCl (Zoloft) 50 mg DAILY PO Last administered on 10/19/16 09:04; Start 10/17/16 at 09:00 Sumatriptan Succinate (Imitrex) 25 mg PRN Q2HR PRN PO MIGRAINE HEADACHE; Start 10/16/16 at 21:15 Cyclobenzaprine HCl (Flexeril) 10 mg PRN Q6HRS PRN PO MUSCLE SPASMS/NTE 60MG/ 24HRS; Start 10/16/16 at 22:15 Acetaminophen (Tylenol) 650 mg PRN Q6HRS PRN PO FEVER; Start 10/17/16 at 09:15 Ondansetron HCl (Zofran) 4 mg PRN Q6HRS PRN IV NAUSEA/VOMITING; Start 10/17/16 at 09:15 Morphine Sulfate 2 mg PRN Q2HR PRN IV PAIN; Start 10/17/16 at 09:15 Tramadol HCl (Ultram) 50 mg PRN Q6HRS PRN PO PAIN; Start 10/17/16 at 09:15 Hydralazine HCl (Apresoline) 10 mg PRN Q4HRS PRN IVP ELEVATED BP, SEE COMMENTS ; Start 10/17/16 at 09:15 Docusate Sodium (Colace) 100 mg PRN DAILY PRN PO CONSTIPATION; Start 10/17/16 at 09:15 Lidocaine (Lidoderm) 1 patch DAILY TD Last administered on 10/18/16 08:45; Start 10/17/16 at 11:30 Bacitracin 83484 unit/Sodium Chloride 250 ml @ 0 mls/hr 1X ONCE IRR Last administered on 10/18/16 13:26; Start 10/18/16 at 08:45; Stop 10/18/16 at 08:46; Status DC Cefazolin Sodium/ Dextrose 50 ml @ 100 mls/hr 1X ONCE IV Last administered on 10/18/16 13:26; Start 10/18/16 at 08:30; Stop 10/18/16 at 08:59; Status DC Lidocaine/ Epinephrine (Xylocaine 2%-Epi 1:100,000) 20 ml STK-MED ONCE .ROUTE ; Start 10/18/16 at 11:42; Stop 10/18/16 at 11:43; Status DC Cefazolin Sodium/ Dextrose 50 ml @ As Directed STK-MED ONCE IV ; Start 10/18/16 at 12:23; Stop 10/18/16 at 12:24; Status DC Fentanyl Citrate (Fentanyl 5ml Vial) 250 mcg STK-MED ONCE .ROUTE ; Start at 12:23; Stop 10/18/16 at 12:24; Status DC Midazolam HCl (Versed) 5 mg STK-MED ONCE .ROUTE ; Start 10/18/16 at 12:23; Stop 10/18/16 at 12:25; Status DC Midazolam HCl (Versed) 5 mg 1X ONCE IV Last administered on 10/18/16 13:27; Start 10/18/16 at 13:00; Stop 10/18/16 at 13:01; Status DC Fentanyl Citrate (Fentanyl 5ml Vial) 150 mcg 1X ONCE IV Last administered on 13:27; Start 10/18/16 at 13:00; Stop 10/18/16 at 13:01; Status DC Lidocaine/ Epinephrine (Xylocaine 2%-Epi 1:100,000) 30 ml 1X ONCE IJ Last administered on 10/18/16 13:28; Start 10/18/16 at 13:00; Stop 10/18/16 at 13:01; Status DC Info 1 ea CONT PRN PRN MC PER PROTOCOL; Start 10/18/16 at 15:15 Cefazolin Sodium/ Dextrose 50 ml @ 100 mls/hr 1X ONCE IV Last administered on 10/18/16 20:23; Start 10/18/16 at 19:30; Stop 10/18/16 at 19:59; Status DC Active Scripts Active Reported Amlodipine Besylate 10 Mg Tablet 10 Mg PO DAILY Zoloft (Sertraline Hcl) 50 Mg Tablet 50 Mg PO DAILY Lisinopril 40 Mg Tablet 40 Mg PO DAILY Hydrocodone-Apap 5-325 (Hydrocodone Bit/Acetaminophen) 1 Each Tablet 1 Tab PO Q4HRS PRN Fluticasone Propionate Nasal Emily (Fluticasone Propionate) 16 Gm Emily.susp 1 Emily NS DAILY Cyclobenzaprine Hcl 10 Mg Tablet 10 Mg PO TID Celebrex (Celecoxib) 200 Mg Capsule 200 Mg PO DAILY 30 Days Vitals/I & O Vital Sign - Last 24 Hours 10/18/16 10/18/16 10/18/16 10/18/16 15:00 19:29 20:11 23:06 Temp 97.5 97.6 97.5 97.6 Pulse 96 76 74 Resp 18 16 B/P (MAP) 115/77 (90) 111/64 (80) 103/76 (85) Pulse Ox 94 92 93 O2 Delivery Room Air Room Air Room Air Room Air 10/19/16 10/19/16 10/19/16 10/19/16 02:38 07:00 08:00 09:04 Temp 98.1 98.2 98.1 98.2 Pulse 69 72 72 Resp 16 18 B/P (MAP) 126/57 (80) 130/56 (80) 130/56 Pulse Ox 94 97 O2 Delivery Room Air Room Air Room Air Intake and Output 10/19/16 10/19/16 10/20/16 15:00 23:00 07:00 Intake Total 250 ml Balance 250 ml ZACKNIAL K III DO Oct 19, 2016 14:41
--- NOTE | 2016-10-21 11:44 | DS ---
DATE OF DISCHARGE: 10/19/2016 ADMISSION DIAGNOSES: Syncope, chronic lymphocytic leukemia, facial trauma with EKG abnormalities. HOSPITAL COURSE: The patient is a pleasant 71-year-old female who presented with syncopal episode. She had some EKG abnormalities. She also had some facial trauma. We admitted the patient. We checked serial enzymes, serial EKGs. We consulted cardiology, her workup was negative. We discharged to home with close outpatient followup. DISPOSITION: Home. ACTIVITY: As tolerated. DIET: Low sodium. MEDICATIONS: Please see the MRAD. TOTAL TIME: 33 minutes. YRIS DIXON DO DR: TINO/sven JOB#: [id number] / [id number]
== END 2016-10-19 16:18 | disposition home or self-care (01) | DRG 243 ==
LOC: ER 14:58 → 5 SOUTH 19:09 → 2 SOUTH 10-18 12:24
PROVIDERS: ADMIT Internal Medicine; ATTEND Internal Medicine
PROC: 0HQ1XZZ Repair Face Skin, External Approach (ICD-10-PCS; 2016-10-16)
PROC: 0JH606Z Insertion of Pacemaker, Dual Chamber into Chest Subcutaneous Tissue and Fascia, Open Approach (ICD-10-PCS; principal; 2016-10-18)
PROC: 02H63JZ Insertion of Pacemaker Lead into Right Atrium, Percutaneous Approach (ICD-10-PCS; 2016-10-18)
PROC: 02HK3JZ Insertion of Pacemaker Lead into Right Ventricle, Percutaneous Approach (ICD-10-PCS; 2016-10-18)
DX: I44.2 Atrioventricular block, complete (principal); C91.10 Chronic lymphocytic leukemia of B-cell type not having achieved remission; E11.22 Type 2 diabetes mellitus with diabetic chronic kidney disease; D63.0 Anemia in neoplastic disease; I12.9 Hypertensive chronic kidney disease with stage 1 through stage 4 chronic kidney disease, or unspecified chronic kidney disease; S02.2XXA Fracture of nasal bones, initial encounter for closed fracture; R00.1 Bradycardia, unspecified; R55 Syncope and collapse; S01.81XA Laceration without foreign body of other part of head, initial encounter; S01.511A Laceration without foreign body of lip, initial encounter; I44.30 Unspecified atrioventricular block; F32.9 Major depressive disorder, single episode, unspecified; E78.5 Hyperlipidemia, unspecified; F41.9 Anxiety disorder, unspecified; J45.909 Unspecified asthma, uncomplicated; K52.9 Noninfective gastroenteritis and colitis, unspecified; K57.90 Diverticulosis of intestine, part unspecified, without perforation or abscess without bleeding; N18.3 Chronic kidney disease, stage 3 (moderate); E11.42 Type 2 diabetes mellitus with diabetic polyneuropathy; S13.4XXA Sprain of ligaments of cervical spine, initial encounter; E78.00 Pure hypercholesterolemia, unspecified; M19.90 Unspecified osteoarthritis, unspecified site; W19.XXXA Unspecified fall, initial encounter; Z90.710 Acquired absence of both cervix and uterus; Z98.890 Other specified postprocedural states; Z85.9 Personal history of malignant neoplasm, unspecified; Z80.3 Family history of malignant neoplasm of breast; Z82.49 Family history of ischemic heart disease and other diseases of the circulatory system; Z80.1 Family history of malignant neoplasm of trachea, bronchus and lung; Z80.42 Family history of malignant neoplasm of prostate; Z83.3 Family history of diabetes mellitus
CPT/HCPCS: 12001; 33208; 36415; 70150; 70450; 71010; 71020; 71110; 72125; 80048; 80061; 81001; 84484; 85007; 85025; 87086; 87324; 90471; 90714; 93005; 93306; 93880; 95816; 96372; 96374; 96375; 96376; 99152; 99153; C1785; C1898; J0690; J2250; J2270; J2405; J3010; J3490; J7050; 99285-25; J7030

== ENCOUNTER → 2016-11-21 | Outpatient (CLI) | payer OTHER ==
[~2016-11-21] MED LIST changes: +AMLO10TA2 PO
--- NOTE | 2016-11-26 18:15 | EEG ---
DATE OF SERVICE: 11/21/2016 EEG NUMBER: [id number]. OBJECTIVE: This is a 71-year-old female patient with history of mental status changes and encephalopathy. EEG was requested to evaluate cerebral activity. METHODS: Twenty electrodes were applied according to the international 10-20 electrode placement system. EKG monitoring, hyperventilation, intermittent photic stimulation, monopolar and bipolar montages are routinely utilized. The record was obtained on a digital system with video monitoring. FINDINGS: 1. Background: The patient was recorded in the awake, drowsy, and sleep states. The overall background amplitude is 5-10 microvolts. A posterior dominant rhythm of 6-8 Hz is observed with superimposed mixture in theta and delta frequencies. 2. Abnormalities: No specific epileptiform discharge or electrographic seizure is seen. Diffuse slowing in theta and delta frequencies throughout the entire recording. 3. Activation: Hyperventilation was performed with good efforts and normal response. Intermittent photic stimulation was performed with photoparoxysmal response. IMPRESSION: This EEG falls into the abnormal category of the study for the awake, drowsy, and sleep states. The posterior dominant rhythm of 6-8 Hz is slow for age. The superimposed slowing in the theta and delta frequencies noted. Photoparoxysmal response noted. No focal, lateralizing, specific epileptiform discharge or electrographic seizure is seen. LISA KAUR MD DR: KENAN/sven JOB#: [id number] / [id number] INES
== END | disposition home or self-care (01) ==
LOC: RT 07:53
PROVIDERS: ATTEND Psychiatry & Neurology Neurology
DX: G93.40 Encephalopathy, unspecified (principal); F31.89 Other bipolar disorder; R41.82 Altered mental status, unspecified; R06.4 Hyperventilation
CPT/HCPCS: 95816

== ENCOUNTER → 2017-07-24 | Outpatient (CLI) | payer OTHER ==
[2017-07-24] MEDS: REGADENOSON 0.4 MG/5 ML DISP.SYRIN. IV (10:47)
== END | disposition home or self-care (01) ==
LOC: NM 09:02
DX: I44.2 Atrioventricular block, complete (principal)
CPT/HCPCS: 78452; 93017; 96374; 96375; 96376; A9500; J2785

== ENCOUNTER → 2017-09-10 | Outpatient (CLI) | payer OTHER | END | disposition home or self-care (01) | LOC: KCIC US 09:33 | DX: R10.2 Pelvic and perineal pain (principal); I12.9 Hypertensive chronic kidney disease with stage 1 through stage 4 chronic kidney disease, or unspecified chronic kidney disease; E11.22 Type 2 diabetes mellitus with diabetic chronic kidney disease; N18.3 Chronic kidney disease, stage 3 (moderate); E78.5 Hyperlipidemia, unspecified; E78.00 Pure hypercholesterolemia, unspecified; J45.909 Unspecified asthma, uncomplicated; Z85.6 Personal history of leukemia; Z90.710 Acquired absence of both cervix and uterus | CPT/HCPCS: 76830; 76856 ==

== ENCOUNTER → 2018-03-20 | Outpatient (CLI) | payer OTHER ==
[~2018-03-20] MED LIST changes: -AMLO10TA2 PO; +AMLO10TA8 PO; -HYDR-2758 PO; +HYDR-2761 PO; +LISI-130 PO; -LISI40TA PO
--- NOTE | 2018-03-20 12:40 | KCIC ---
4 view left wrist dated 03/20/2018. No comparison available. CLINICAL INDICATION: Pain and bruising radial aspect after injury. Evaluate scaphoid bone. FINDINGS: 4 views were obtained to include navicular view. Bony alignment is anatomic. No displaced fracture. No acute osseous or articular abnormality. No periostitis or bone destruction. Mild degenerative change of the first carpometacarpal joint and scaphotrapezial joint. IMPRESSION: No acute findings. Electronically signed by: Sumanth Portillo MD (03/20/2018 12:35 PM) [facility]-KCIC2
== END | disposition home or self-care (01) ==
LOC: KCIC 10:56
PROVIDERS: ATTEND Family Medicine
DX: M18.12 Unilateral primary osteoarthritis of first carpometacarpal joint, left hand (principal)
CPT/HCPCS: 73110

== ENCOUNTER → 2018-07-30 | Outpatient (CLI) | payer OTHER ==
--- NOTE | 2018-07-30 11:16 | CARD ---
MR#: [id number] Date of Study: 07/30/2018 Ordering Physician: JOSE A KEITA, Referring Physician: JOSE A KEITA Tech: Linda Matute VALERIE APPROVED REPORT EXAM: Two-dimensional and M-mode echocardiogram with Doppler and color Doppler. Other Information Quality : AverageHR: 70bpm Rhythm : NSR INDICATION Heart Block 2D DIMENSIONS RVDd3.0 (2.9-3.5cm)IVSd1.0 (0.7-1.1cm) Aortic Root(2D)2.9 (2.0-3.7cm)LVDd4.6 (3.9-5.9cm) LVOT Diameter1.9 (1.8-2.4cm)PWd0.9 (0.7-1.1cm) IVSs1.3 (0.8-1.2cm)LVDs3.0 (2.5-4.0cm) FS (%) 35.5 %PWs1.5 (0.8-1.2cm) SV63.6 mlLVEF(%)65.0 (>50%) Aortic Valve AoV Peak Celso.127.1cm/sAoV VTI26.1cm AO Peak GR.6.5mmHgLVOT Peak Celso.104.6cm/s LVOT VTI 22.67cmAO Mean GR.4mmHg DEAN (VMAX)1.74hv6HHX (VTI)2.39cm2 AI P 1/2 Xwrn470af Mitral Valve MV E Womiaudm24.5cm/sMV DECEL PGPM110fr MV A Mxrbteso79.0cm/sMV HHK64zz E/A Ratio0.8MVA (PHT)3.81cm2 TDI E/Lateral E'8.2E/Medial E'9.0 Pulmonary Valve PV Peak Xoxxsdcu50.6cm/sPV Peak Grad.4mmHg Tricuspid Valve TR P. Mipnzsks881mr/sRAP RASHIBMQ5btSe TR Peak Gr.45ygDpXNVL85gzCo LEFT VENTRICLE The left ventricle is normal size. There is normal left ventricular wall thickness. The left ventricu lar systolic function is normal and the ejection fraction is within normal range. The Ejection Fracti on is 55-60%. Septal motion consistent with conduction abnormality. Transmitral Doppler flow pattern is Grade I-abnormal relaxation pattern. RIGHT VENTRICLE The right ventricle is normal size. There is normal right ventricular wall thickness. The right ventr icular systolic function is normal. Pacer lead noted in RA/RV. ATRIA The left atrium size is normal. The right atrium size is normal. The interatrial septum is intact wit h no evidence for an atrial septal defect or patent foramen ovale as noted on 2-D or Doppler imaging. AORTIC VALVE The aortic valve is normal in structure and function. The aortic valve is trileaflet. Doppler and Col or Flow revealed no significant aortic regurgitation. There is no significant aortic valvular stenosi s. MITRAL VALVE The mitral valve is normal in structure and function. There is no evidence of mitral valve prolapse. There is no mitral valve stenosis. Doppler and Color-flow revealed trace to mild mitral regurgitation . TRICUSPID VALVE The tricuspid valve is normal in structure and function. Doppler and Color Flow revealed trace tricus pid regurgitation. The PA pressure was estimated at 19 mmHg. There is no tricuspid valve prolapse or vegetation. There is no tricuspid valve stenosis. PULMONIC VALVE The pulmonary valve is normal in structure and function. Doppler and Color Flow revealed no pulmonic valvular regurgitation. There is no pulmonic valvular stenosis. GREAT VESSELS The aortic root is normal in size. The ascending aorta is normal in size. The IVC is normal in size a nd collapses >50% with inspiration. PERICARDIAL EFFUSION There is no evidence of significant pericardial effusion. Critical Notification Critical Value: No <Conclusion> The left ventricle is normal size. The left ventricular systolic function is normal and the ejection fraction is within normal range. The Ejection Fraction is 55-60%. Septal motion consistent with conduction abnormality. Pacer lead noted in RA/RV. There is no significant aortic valvular stenosis. Doppler and Color Flow revealed no significant aortic regurgitation. Doppler and Color-flow revealed trace to mild mitral regurgitation. Doppler and Color Flow revealed trace tricuspid regurgitation. The PA pressure was estimated at 19 mmHg. Signed by : Stas Benavides MD Electronically Approved : 07/30/2018 11:16:05
== END | disposition home or self-care (01) ==
LOC: ECHO 09:57
PROVIDERS: ATTEND Internal Medicine Cardiovascular Disease
DX: I34.0 Nonrheumatic mitral (valve) insufficiency (principal); I44.2 Atrioventricular block, complete
CPT/HCPCS: 93306

== ENCOUNTER → 2019-04-01 | Outpatient (CLI) | payer MEDICARE ==
--- NOTE | 2019-04-01 11:23 | EKG ---
[facility] [address] [place] [address] Test Date: 2019-04-01 Test Time: 11:19:18 Pat Name: JOSELIN TEJEDA Department: Room: Gender: F Employee Development Manager: SRIDHAR : 1945 Requested By: ANA M MI Order Number: [id number] Reading MD: Measurements Intervals [place] Rate: 69 P: 41 OR: 166 QRS: 5 QRSD: 82 T: 38 QT: 408 QTc: 439 Interpretive Statements SINUS RHYTHM NO SPECIFIC ECG ABNORMALITIES RI6.02 Compared to ECG 10/16/2016 15:09:14 No significant changes
== END | disposition home or self-care (01) ==
LOC: EKG 10:42
PROVIDERS: ATTEND Internal Medicine Hematology & Oncology
DX: C91.10 Chronic lymphocytic leukemia of B-cell type not having achieved remission (principal)
CPT/HCPCS: 93005

== ENCOUNTER 2019-05-07 07:04 | Emergency (ER) | payer MEDICARE ==
[~2019-05-07] VITALS: Ht 162.6 cm; Wt 90.9 kg
--- NOTE | 2019-05-07 07:59 | RAD ---
Study: LUMBAR SPINE 2-3V Indication: Atraumatic back pain. Provided history of CLL. Comparison: None recently. Findings: Thoracolumbar levocurvature with the apex at T12-L1. Lumbar lordosis is maintained. No suspicious vertebral body height loss. Discogenic arthrosis with mild disc space narrowing at scattered levels. Multilevel facet degeneration appearing relatively mild by radiography. No aggressive osseous process. The visualized pelvic osseous structures are grossly intact. Aortic calcific atherosclerosis. Partially visualized pacer lead. Impression: 1. Mild thoracolumbar levocurvature with the apex at T12-L1. 2. Multilevel discogenic arthrosis with mostly mild disc space narrowing. Multilevel facet degeneration that is mostly mild. 3. No acute fracture or aggressive osseous process by radiography. Electronically signed by: HOLLY DEL VALLE MD (05/07/2019 7:56 AM) [id number]
--- NOTE | 2019-05-07 08:33 | RAD ---
Right lower extremity venous ultrasound, : History: Right lower extremity pain and swelling Duplex evaluation including grayscale, color flow and spectral Doppler analysis was performed. The femoral and popliteal veins show no filling defects to suggest DVT. The visualized calf veins are unremarkable. Peroneal veins are poorly visualized. Definitive flow was not identified in the peroneal veins, follow-up may be of benefit to exclude peroneal vein thrombosis. IMPRESSION: 1. Negative for DVT from the femoral vein through the popliteal vein and posterior tibial veins. 2. Limited evaluation of peroneal veins follow-up may be of benefit if symptoms persist to exclude the peroneal vein thrombosis. Electronically signed by: Yeison Al MD (05/07/2019 8:30 AM) [id number]
[2019-05-07] MEDS ORDERED: OXYC1TAB15 PO (09:32)
--- NOTE | 2019-05-07 09:49 | PHYS DOC ---
Past Medical History Past Medical History: Anxiety, Cancer, Depression, High Cholesterol, Hype rtension Additional Past Medical Histor: CLL Past Surgical History: Hysterectomy Additional Past Surgical Histo: bladder rx x 2, cyst removal- finger, R shoulder Smoking Status: Never Smoker Alcohol Use: None Drug Use: None Adult General Chief Complaint Chief Complaint: LOWER EXT PAIN HPI HPI Patient is a 73 year old female was presenting with chief complaint of leg pain it was bilateral last month she got gabapentin from her primary doctor her left leg is better but her right leg is still hurting and is described as a kind of a sharp shooting pain from the right hip is kind even starts up in the right back and then goes down towards her toes she has intermittent leg cramping she does have CLL she takes medication for that she is was worried about a blood clot so she came to the emergency room for evaluation. No chest pain or shortness of breath no fever no trauma. She does have intermittent leg cramps and arm cramps that are been going on for years. Review of Systems Review of Systems Constitutional: Denies fever or chills [] Eyes: Denies change in visual acuity, redness, or eye pain [] HENT: Denies nasal congestion or sore throat [] Respiratory: Denies cough or shortness of breath [] Cardiovascular: No additional information not addressed in HPI [] GI: Denies abdominal pain, nausea, vomiting, bloody stools or diarrhea [] : Denies dysuria or hematuria [] Musculoskeletal: All other systems were reviewed and found to be within normal limits, except as documented in this note. Allergies Allergies Allergies Coded Allergies Type Severity Reaction Last Updated Verified No Known Drug Allergies 07/01/14 No Physical Exam Physical Exam Constitutional: Well developed, well nourished, no acute distress, non-toxic appearance. [] HENT: Normocephalic, atraumatic, bilateral external ears normal, oropharynx moist, no oral exudates, nose normal. [] Eyes: PERRLA, EOMI, conjunctiva normal, no discharge. [] Neck: Normal range of motion, no tenderness, supple, no stridor. [] Cardiovascular:Heart rate regular rhythm, no murmur [] Lungs & Thorax: Bilateral breath sounds clear to auscultation [] Abdomen: Bowel sounds normal, soft, no tenderness, no masses, no pulsatile masses. [] Skin: Warm, dry, no erythema, no rash. [] Back: Paraspinous tenderness on the right Extremities: Diffuse tenderness of the right lower extremity with no specific findings no obvious swelling or edema or erythema noted. Pedal pulse intact Neurologic: Alert and oriented X 3, normal motor function, normal sensory function, no focal deficits noted. [] Psychologic: Affect normal, judgement normal, mood normal. [] Current Patient Data Vital Signs Vital Signs Date Time Temp Pulse Resp B/P (MAP) Pulse Ox O2 Delivery O2 Flow Rate FiO2 05/07/19 07:19 98.0 87 20 163/79 (107) 94 Room Air 98.0 EKG EKG [] Radiology/Procedures Radiology/Procedures [] IMPRESSION: 1. Negative for DVT from the femoral vein through the popliteal vein and posterior tibial veins. 2. Limited evaluation of peroneal veins follow-up may be of benefit if symptoms persist to exclude the peroneal vein thrombosis. Electronically signed by: Yeison Al MD (05/07/2019 8:30 AM) [id number] DICTATED and SIGNED BY: YEISON AL MD DATE: 05/07/19 0830 Impressions: Impression: 1. Mild thoracolumbar levocurvature with the apex at T12-L1. 2. Multilevel discogenic arthrosis with mostly mild disc space narrowing. Multilevel facet degeneration that is mostly mild. 3. No acute fracture or aggressive osseous process by radiography. Electronically signed by: HOLLY DEL VALLE MD (05/07/2019 7:56 AM) [id number] DICTATED and SIGNED BY: HOLLY DEL VALLE MD Course & Med Decision Making Course & Med Decision Making Pertinent Labs and Imaging studies reviewed. (See chart for details) 73-year-old female presenting with lower ext pain probable neuropathic/radiculopathic noted ultrasound report patient has no obvious dvt but i advised a repeat test in one week with primary doctr gave a few days of percocet to help with acute pain control Dragon Disclaimer Dragon Disclaimer This electronic medical record was generated, in whole or in part, using a voice recognition dictation system. Departure Departure Impression: Primary Impression: Leg pain Disposition: 01 HOME, SELF-CARE Condition: STABLE Referrals: CARMEL ADAM MD (PCP) Patient Instructions: Sciatica, [id number] Additional Instructions: PLEASE SEE YOUR PRIMARY DOCTOR NEXT WEEK FOR REPEAT ULTRASOUND. "ULTRASOUND SHOWED NO DVT BUT THERE WAS Limited evaluation of peroneal veins f ollow-up may be of benefit if symptoms persist to exclude the peroneal vein thrombosis." Scripts Oxycodone/Apap 5-325 (PERCOCET 5-325 MG TABLET ) 1 Each Tablet 1-2 EACH PO PRN TID PRN for PAIN, #12 TAB pain Prov: KENDAL REZA MD 05/07/19 KENDAL REZA MD May 07, 2019 09:49
== END 2019-05-07 09:39 | disposition home or self-care (01) ==
LOC: ER 07:04
DX: M79.604 Pain in right leg (principal); M25.551 Pain in right hip; M54.5 Low back pain; E78.00 Pure hypercholesterolemia, unspecified; I10 Essential (primary) hypertension; Z90.710 Acquired absence of both cervix and uterus
CPT/HCPCS: 72100; 93971; 99284-25

== ENCOUNTER → 2020-03-15 | Outpatient (CLI) | payer MEDICARE ==
[2019-05-07 07:19] VITALS: BP 163/79
[~2020-03-15] MED LIST changes: +AMLO-187 PO; -AMLO10TA8 PO; +OXYC1TAB15 PO
--- NOTE | 2020-03-15 13:38 | CARD ---
MR#: [id number] Date of Study: 03/15/2020 Ordering Physician: JOSE A KEITA, Referring Physician: JOSE A KEITA Tech: Joyce Varghese VALERIE APPROVED REPORT EXAM: Two-dimensional and M-mode echocardiogram with Doppler and color Doppler. Other Information Quality : Good INDICATION Congestive Heart Failure Surgery/Intervention Pacemaker: Date: 10/18/16 2D DIMENSIONS RVDd2.7 (2.9-3.5cm)Left Atrium(2D)3.1 (1.6-4.0cm) IVSd0.7 (0.7-1.1cm)Aortic Root(2D)2.7 (2.0-3.7cm) LVDd5.0 (3.9-5.9cm)LVOT Diameter1.8 (1.8-2.4cm) PWd0.7 (0.7-1.1cm)LVDs3.5 (2.5-4.0cm) FS (%) 29.4 %SV66.2 ml Aortic Valve AoV Peak Celso.148.5cm/sAoV VTI28.3cm AO Peak GR.8.8mmHgLVOT Peak Celso.115.4cm/s AO Mean GR.5mmHgAVA (VMAX)2.04cm2 DEAN (VTI)2.10cm2 Mitral Valve MV E Hlcivjcu72.1cm/sMV DECEL IIAI174my MV A Yhfreqfy173.9cm/sE/A Ratio0.8 Tricuspid Valve TR P. Fugvcntn435tk/sRAP OTRHWRSR7awKb TR Peak Gr.97mkKmAGTR75zlVj Pulmonary Vein S1 Vmriabuu54.8cm/sD2 Xstrldug43.9cm/s LEFT VENTRICLE The left ventricle is normal size. There is normal left ventricular wall thickness. The left ventricu lar systolic function is normal and the ejection fraction is within normal range. The Ejection Fracti on is 50-55%. Apical motion consistent with pacemaker activation. Transmitral Doppler flow pattern is Grade I-abnormal relaxation pattern. RIGHT VENTRICLE The right ventricle is normal size. The right ventricular systolic function is normal. There are hector ce leads in the right ventricle and atrium. ATRIA The left atrium size is normal. The right atrium size is normal. The interatrial septum is intact wit h no evidence for an atrial septal defect or patent foramen ovale as noted on 2-D or Doppler imaging. AORTIC VALVE The aortic valve is calcified but opens well. Doppler and Color Flow revealed trace aortic regurgitat ion. There is no significant aortic valvular stenosis. MITRAL VALVE The mitral valve is calcified but opens well. There is no evidence of mitral valve prolapse. There is no mitral valve stenosis. Doppler and Color Flow revealed no mitral valve regurgitation noted. TRICUSPID VALVE The tricuspid valve is normal in structure and function. Doppler and Color Flow revealed trace tricus pid regurgitation. The PA pressure was estimated at 26 mmHg. There is no tricuspid valve stenosis. PULMONIC VALVE The pulmonic valve is not well visualized. Doppler and Color Flow revealed no pulmonic valvular regur gitation. There is no pulmonic valvular stenosis. GREAT VESSELS The aortic root is normal in size. The ascending aorta is normal in size. The IVC is normal in size a nd collapses >50% with inspiration. PERICARDIAL EFFUSION There is no evidence of significant pericardial effusion. Critical Notification Critical Value: No <Conclusion> The left ventricle is normal size. The left ventricular systolic function is normal and the ejection fraction is within normal range. The Ejection Fraction is 50-55%. Apical motion consistent with pacemaker activation. There are device leads in the right ventricle and atrium. Doppler and Color Flow revealed trace aortic regurgitation. There is no significant aortic valvular stenosis. Doppler and Color Flow revealed no mitral valve regurgitation noted. Doppler and Color Flow revealed trace tricuspid regurgitation. The PA pressure was estimated at 26 mmHg. Signed by : Stas Benavides MD Electronically Approved : 03/15/2020 13:37:41
== END ==
LOC: ECHO 11:00
PROVIDERS: ATTEND Internal Medicine Cardiovascular Disease
DX: I08.0 Rheumatic disorders of both mitral and aortic valves (principal); I44.2 Atrioventricular block, complete
CPT/HCPCS: 93306

== ENCOUNTER → 2021-03-07 | Outpatient (CLI) | payer MEDICARE ==
[2019-05-07 07:19] VITALS: BP 163/79
[~2021-03-07] MED LIST changes: +CYCL10TA19 PO; -CYCL10TA2 PO; +REGADENOSON 0.4 MG/5 ML DISP.SYRIN. IV ONE
--- NOTE | 2021-03-07 16:21 | CARD ---
MR#: [id number] Date of Study: 03/07/2021 Ordering Physician: JOSE A KEITA, Referring Physician: JOSE A KEITA Tech: Marija Perez [facility] APPROVED REPORT EXAM: Two-dimensional and M-mode echocardiogram with Doppler and color Doppler. Other Information Quality : GoodHR: 59bpm Rhythm : NSR INDICATION Arrhythmia Surgery/Intervention ICD/Pacemaker: RISK FACTORS Hypertension 2D DIMENSIONS RVDd2.7 (2.9-3.5cm)Left Atrium(2D)3.8 (1.6-4.0cm) IVSd0.9 (0.7-1.1cm)Aortic Root(2D)3.3 (2.0-3.7cm) LVDd4.1 (3.9-5.9cm)LVOT Diameter1.7 (1.8-2.4cm) PWd0.8 (0.7-1.1cm)LVDs2.9 (2.5-4.0cm) FS (%) 27.9 %SV40.0 ml Aortic Valve AoV Peak Celso.132.7cm/sAoV VTI34.4cm AO Peak GR.7.0mmHgLVOT Peak Celso.111.9cm/s AO Mean GR.3mmHgAVA (VMAX)2.01cm2 Mitral Valve MV E Joenrrfg84.3cm/sMV DECEL RILL097hr MV A Hyqzhfku62.4cm/sE/A Ratio0.9 Pulmonary Valve PV Peak Ohebqryj303.8cm/s Tricuspid Valve TR P. Wpdyigss239as/sTR Peak Gr.19mmHg LEFT VENTRICLE The left ventricle is normal size. There is normal left ventricular wall thickness. The left ventricu lar systolic function is normal and the ejection fraction is within normal range. LV ejection fracti on is 55 to 60%. There is normal LV segmental wall motion. Transmitral Doppler flow pattern is Grade I-abnormal relaxation pattern. RIGHT VENTRICLE The right ventricle is normal size. There is normal right ventricular wall thickness. The right ventr icular systolic function is normal. ATRIA The left atrium size is normal. The right atrium size is normal. The interatrial septum is intact wit h no evidence for an atrial septal defect or patent foramen ovale as noted on 2-D or Doppler imaging. AORTIC VALVE The aortic valve is normal in structure and function. Doppler and Color Flow revealed trace aortic re gurgitation. There is no significant aortic valvular stenosis. MITRAL VALVE The mitral valve is normal in structure and function. There is no evidence of mitral valve prolapse. There is no mitral valve stenosis. Doppler and Color-flow revealed trace mitral regurgitation. TRICUSPID VALVE The tricuspid valve is normal in structure and function. Doppler and Color Flow revealed trace tricus pid regurgitation. Estimated PAP 23 mmHG. There is no tricuspid valve stenosis. PULMONIC VALVE The pulmonary valve is normal in structure and function. Doppler and Color Flow revealed mild pulmoni c valvular regurgitation. GREAT VESSELS The aortic root is normal in size. The ascending aorta is normal in size. The IVC is normal in size a nd collapses >50% with inspiration. PERICARDIAL EFFUSION There is no evidence of significant pericardial effusion. Critical Notification Critical Value: No <Conclusion> The left ventricle is normal size. The left ventricular systolic function is normal and the ejection fraction is within normal range. LV ejection fraction is 55 to 60%. Doppler and Color Flow revealed trace aortic regurgitation. There is no significant aortic valvular stenosis. Doppler and Color-flow revealed trace mitral regurgitation. Doppler and Color Flow revealed trace tricuspid regurgitation. Estimated PAP 23 mmHG. Signed by : Stas Benavides MD Electronically Approved : 03/07/2021 16:20:31
--- NOTE | 2021-03-09 13:29 | RAD ---
MR#: [id number] Date of Study: 03/07/2021 Ordering Physician: JOSE A KEITA, Referring Physician: MOO JIMENEZ Tech: RT Gayatri Dent) (N) APPROVED REPORT Test Type: Pharmacological Stress Nurse/Tech: Maggie Loera RN Test Indications: complete heart block Cardiac History: asthma, HTN, PPM Medications: See Electronic Medical Record Medical History: See Electronic Medical Record Resting ECG: SR, pacemaker spikes noted Resting Heart Rate: 60 bpm Resting Blood Pressure: 174/72mmHg Pretest Chest Pain: None Nurse/Tech Notes lungs CTA, S1S2 Consent: The procedure was explained to the patient in lay terms. Informed consent was witnessed. Noah eout was entered into [employer]. History and Stress Test performed by RT Gayatri Dent) (N) Pharm. Details Pharmacologic stress testing was performed using 0.4mg per 5ml of regadenoson given intravenously ove r 7-10 seconds. Stress Symptoms No chest pain or symptoms. POST EXERCISE Reason for Termination: Infusion complete Max HR: 80 bpm Max Blood Pressure: 169/66mmHg Blood Pressure response to exercise: Normal blood pressure response during stress. Heart Rate response to exercise: normal response Chest Pain: No. Arrhythmia: No. ST Change: No. INTERPRETATION Stress EKG Conclusion: The resting EKG shows a sinus rhythm and mild ST segment changes. The stress EKG shows no significant changes from baseline. No EKG evidence of stress-induced ischemia. Imaging Protocol IMAGE PROTOCOL: Rest Tc-99m/stress Tc-99m 1 day Rest: Stress: Viability: Radiopharm.Tc99m PhxnxekenOm45t Sestamibi Wjhr20pEo 33mCi Duration 13min. 13min. Img Date 03/07/2021 03/07/2021 Inj-Img Nnti15aog. 60min. Rest Admin Site:IV - Right AntecubitalAdministrator:RT Gayatir Dent)(N) Stress Admin Site: IV - Right AntecubitalAdministrator: STANISLAW Martinez STRESS DATA End Diast. Vol.70.0mlLVEDV index BSA36.0ml End Syst. Vol.12.0mlLVESV index BSA6.0ml Myocardial Bqxx134.0gEject. Cjpthcfn29.0% Stress Scores Regional WT1.00Summed WT11.00 Regional WM0.00Summed WM0.00 LV Perfusion The stress scans showed no significant defects. The rest scans showed no significant defects. Nuclear imaging shows no reversible ischemia or infarct. Wall Motion Normal left ventricular systolic function with an ejection fraction of greater than 70%. LV Perf. Quant 17 Seg. SSS0.00 17 Seg. SRS0.00 17 Seg. SDS0.00 Stress Defect Extent (% LAD)0.00Rest Defect Extent (% LAD)0.00Rev. Defect Extent (% LAD)0.00 Stress Defect Extent (% LCX) 0.00Rest Defect Extent (% LCX)0.00Rev. Defect Extent (% LCX)0.00 Stress Defect Extent (% RCA)0.00Rest Defect Extent (% RCA)0.00Rev. Defect Extent (% RCA)0.00 Stress Defect Extent (% ANNE-MARIE)0.00Rest Defect Extent (% ANNE-MARIE)0.00Rev. Defect Extent (% ANNE-MARIE)0.00 Conclusion 1. No EKG evidence of stress-induced ischemia. 2. Nuclear imaging shows no reversible ischemia or infarct. 3. Normal left ventricular systolic function with an ejection fraction of greater than 70%. 4. Low risk Lexiscan nuclear stress test. Signed by : Stas Benavides MD Electronically Approved : 03/09/2021 13:28:39
== END ==
LOC: ECHO 07:53
PROVIDERS: ATTEND Internal Medicine Cardiovascular Disease
DX: I37.1 Nonrheumatic pulmonary valve insufficiency (principal); I44.2 Atrioventricular block, complete
CPT/HCPCS: 78452; 93017; 93306; A9500; J2785; C8929

== ENCOUNTER 2021-05-22 13:41 | Inpatient (IN) | payer MEDICARE ==
[~2021-05-22] VITALS: Ht 165.1 cm; Wt 87.7 kg
[~2021-05-22 13:41] MED LIST changes: -REGADENOSON 0.4 MG/5 ML DISP.SYRIN. IV ONE
--- NOTE | 2021-05-22 14:15 | PHYS DOC ---
Past Medical History Past Medical History: Anxiety, Cancer, Depression, High Cholesterol, Hype rtension Additional Past Medical Histor: CLL Past Surgical History: Hysterectomy Additional Past Surgical Histo: bladder rx x 2, cyst removal- finger, R shoulder Smoking Status: Never Smoker Alcohol Use: None Drug Use: None General Adult EDM: Chief Complaint: SHORTNESS OF BREATH HPI: HPI: Patient is a 75 year old female with history of CLL,on Imbruvica, depression, hypertension, anxiety, pacemaker, presenting today complaining of shortness of breath, symptoms have been going on for 1 month. Patient states symptoms are worse on exertion. Patient denies any chest pain, denies any fever . Reports a chronic cough. She states she has been evaluated by the PCP, they checked her pacemaker and it was working well. She states she had a negative stress test in the last 3 months. She states today she was walking in her yard she became short of air and could not continue walking, she called her PCP and was asked to come to the ED. Review of Systems: Review of Systems: Constitutional: Denies fever or chills. [] Eyes: Denies change in visual acuity. [] HENT: Denies nasal congestion or sore throat. [] Respiratory: Reports cough and shortness of breath. [] Cardiovascular: Denies chest pain or edema. [] GI: Denies abdominal pain, nausea, vomiting, bloody stools or diarrhea. [] : Denies dysuria. [] Musculoskeletal: Denies back pain or joint pain. [] Integument: Denies rash. [] Neurologic: Denies headache, focal weakness or sensory changes. [] Psychiatric: Denies depression or anxiety. [] Heart Score: C/O Chest Pain: N/A Risk Factors: Risk Factors: DM, Current or recent (<one month) smoker, HTN, HLP, family history of CAD, obesity. Risk Scores: Score 0 - 3: 2.5% MACE over next 6 weeks - Discharge Home Score 4 - 6: 20.3% MACE over next 6 weeks - Admit for Clinical Observation Score 7 - 10: 72.7% MACE over next 6 weeks - Early Invasive Strategies Allergies: Allergies: Allergies Coded Allergies Type Severity Reaction Last Updated Verified No Known Drug Allergies 07/01/14 No Physical Exam: PE: Constitutional: Well developed, well nourished, no acute distress, non-toxic appearance. [] HENT: Normocephalic, atraumatic, bilateral external ears normal, oropharynx moist, no oral exudates, nose normal. [] Eyes: PERRLA, EOMI, conjunctiva normal, no discharge. [] Neck: Normal range of motion, no tenderness, supple, no stridor. [] Cardiovascular:Heart rate regular rhythm, no murmur [] Lungs & Thorax: Bilateral breath sounds clear to auscultation [] Abdomen: Bowel sounds normal, soft, no tenderness, no masses, no pulsatile masses. [] Skin: Warm, dry, no erythema, no rash. [] Back: No tenderness, no CVA tenderness. [] Extremities: No tenderness, no cyanosis, no clubbing, ROM intact, no edema. [] Neurologic: Alert and oriented X 3, normal motor function, normal sensory function, no focal deficits noted. [] Psychologic: Affect normal, judgement normal, mood normal. [] Current Patient Data: Vital Signs: Vital Signs Date Time Temp Pulse Resp B/P (MAP) Pulse Ox O2 Delivery O2 Flow Rate FiO2 05/22/21 13:53 97.9 63 22 148/93 (111) 93 Room Air 97.9 EKG: EK interpreted by Dr. Callahan sinus rhythm heart rate 60 no STEMI [] Radiology/Procedures: Radiology/Procedures: []PROCEDURE: PORTABLE CHEST 1V XR CHEST 1V INDICATION: shortness of breath COMPARISON STUDY: 10/19/2016. FINDINGS: Left pectoral pacemaker. Lungs: Normal lung volume. Prominent interstitial opacities. Indistinct central vasculature appear Pleura: No pleural effusion or pneumothorax. Heart and Mediastinum: The cardiomediastinal silhouette is normal. Atherosclerosis of the thoracic aorta. IMPRESSION: Prominent bilateral interstitial opacities, probably pulmonary edema. Electronically signed by: Enid Guerrier MD (05/22/2021 2:45 PM) [facility] DICTATED and SIGNED BY: ENID GUERRIER MD DATE: 05/22/21 1444 Course & Med Decision Making: Course & Med Decision Making Pertinent Labs and Imaging studies reviewed. (See chart for details) This a 75-year-old female patient presenting to the ED today with complaints of shortness of breath that has been going on for months. Also complaining of a chronic cough. Vitals on arrival to the ED temperature 97.9, heart rate 63, respiration 22 on room air, blood pressure 148/93, O2 sats 93 to 97% EKG is negative, CBC with a WBC of 12.4, CMP with no acute findings. BNP is normal, high-sensitivity troponin is normal Chest x-ray interpreted by radiologist was noted for prominent bilateral interstitial opacities, probably pulmonary edema. Patient's oxygen saturations kept ongoing down as low as 88% on room air, she was put on oxygen Spoke with Dr. Grace who accepted patient for admission Routine cardiology consult placed Dragon Disclaimer: Dragemmanuelle Disclaimer: This electronic medical record was generated, in whole or in part, using a voice recognition dictation system. Departure Departure Impression: Primary Impression: Shortness of breath Disposition: ADMITTED INPATIENT Condition: STABLE Referrals: CARMEL ADAM MD (PCP) PATTY HILL APRN May 22, 2021 14:15
[2021-05-22 14:17] LABS: BASO # 0.1 x10^3/uL (0.0-0.2); BASO % 1 % (0-3); EOS # 0.2 x10^3/uL (0.0-0.7); EOS % 2 % (0-3); HEMATOCRIT 47.3 % (36.0-47.0); HEMOGLOBIN 15.5 g/dL (12.0-15.5); LYMPH # 3.3 x10^3/uL (1.0-4.8); LYMPH % 26 % (24-48); MEAN CORPUSCULAR HEMOGLOBIN 30 pg (25-35); MEAN CORPUSCULAR HGB CONC 33 g/dL (31-37); MEAN CORPUSCULAR VOLUME 90 fL (79-100); MONO # 1.1 x10^3/uL (0.0-1.1); MONO % 9 % (0-9); NEUT # 7.8 x10^3/uL (1.8-7.7); NEUT % 62 % (31-73); PLATELET COUNT 261 x10^3/uL (140-400); RED BLOOD COUNT 5.25 x10^6/uL (3.50-5.40); RED CELL DISTRIBUTION WIDTH 13.9 % (11.5-14.5); WHITE BLOOD COUNT 12.4 x10^3/uL (4.0-11.0)
[2021-05-22 14:27] LABS: CALCIUM 9.2 mg/dL (8.5-10.1); CREATININE 1.2 mg/dL (0.6-1.0); GFR 43.6; POTASSIUM 4.4 mmol/L (3.5-5.1)
[2021-05-22 14:34] LABS: ALBUMIN 3.6 g/dL (3.4-5.0); TOTAL BILIRUBIN 0.8 mg/dL (0.2-1.0); TOTAL PROTEIN 7.3 g/dL (6.4-8.2)
[2021-05-22 14:46] LABS: INFLUENZA A PATIENT NEGATIVE (NEGATIVE); INFLUENZA B PATIENT NEGATIVE (NEGATIVE)
--- NOTE | 2021-05-22 14:48 | RAD ---
XR CHEST 1V INDICATION: shortness of breath COMPARISON STUDY: 10/19/2016. FINDINGS: Left pectoral pacemaker. Lungs: Normal lung volume. Prominent interstitial opacities. Indistinct central vasculature appear Pleura: No pleural effusion or pneumothorax. Heart and Mediastinum: The cardiomediastinal silhouette is normal. Atherosclerosis of the thoracic ao rta. IMPRESSION: Prominent bilateral interstitial opacities, probably pulmonary edema. Electronically signed by: Bao Guerrier MD (05/22/2021 2:45 PM) [facility]OSPITALNohemi
[2021-05-22] MEDS ORDERED: FUROSEMIDE 40 MG/4 ML VIAL. IVP ONE (19:15)
--- NOTE | 2021-05-22 19:22 | PDOC1 ---
History and Physical Date of Service: DOS: DATE: 05/22/21 TIME: :22 Allergies: Allergies: Coded Allergies: No Known Drug Allergies (Unverified , 07/01/14) Current Medications: Current Medications Current Medications Amlodipine Besylate (Norvasc) 10 mg DAILY PO ; Start 05/22/21 at 20:00 Cyclobenzaprine HCl (Flexeril) 10 mg TID PO ; Start 05/22/21 at 21:00; Status UNV Fluticasone Propionate (Flonase) 1 spray DAILY NS ; Start 05/23/21 at 09:00 Lisinopril (Prinivil) 40 mg DAILY PO ; Start 05/22/21 at 20:00 Sertraline HCl (Zoloft) 50 mg DAILY PO ; Start 05/22/21 at 20:00 Furosemide (Lasix) 40 mg 1X ONCE IVP ; Start 05/22/21 at 19:15; Stop 05/22/21 at 19:16; Status UNV Active Scripts Active Percocet 5-325 Mg Tablet (Oxycodone/Acetaminophen) 1 Each Tablet 1-2 Each PO PRN TID PRN pain Reported Amlodipine Besylate 10 Mg Tablet 10 Mg PO DAILY Zoloft (Sertraline Hcl) 50 Mg Tablet 50 Mg PO DAILY Lisinopril 40 Mg Tablet 40 Mg PO DAILY Hydrocodone-Apap 5-325 (Hydrocodone Bit/Acetaminophen) 1 Each Tablet 1 Tab PO Q4HRS PRN Fluticasone Propionate Nasal [place] (Fluticasone Propionate) 16 Gm [place].susp 1 [place] NS DAILY Cyclobenzaprine Hcl 10 Mg Tablet 10 Mg PO TID Celebrex (Celecoxib) 200 Mg Capsule 200 Mg PO DAILY 30 Days ROS: Review of Systems Review of System REVIEW OF SYSTEMS: GENERAL: Denies weakness SKIN: No bruising, hair changes or rashes. EYES: No blurred, double or loss of vision. NOSE AND THROAT: No history of nosebleeds, hoarseness or sore throat. HEART: No history of palpitations, chest pain or shortness of breath on exertion. LUNGS: Denies cough, hemoptysis, wheezing or shortness of breath. GASTROINTESTINAL: Denies changes in appetite, nausea, vomiting, diarrhea or constipation. GENITOURINARY: No history of frequency, urgency, hesitancy or nocturia. NEUROLOGIC: Denies history of numbness, tingling, or tremor. PSYCHIATRIC: No history of panic, anxiety or depression. ENDOCRINE: No history of heat or cold intolerance, polyuria or polydipsia. EXTREMITIES: Denies joint pain, pain on walking or stiffness. Physical Exam: Vital Signs: Vital Signs Date Time Temp Pulse Resp B/P (MAP) Pulse Ox O2 Delivery O2 Flow Rate FiO2 05/22/21 17:00 76 114/65 (81) 94 Room Air 05/22/21 13:53 97.9 22 97.9 Physcial Exam: GEN: No apparent distress. Alert and oriented HEENT: Normal cephalic, atraumatic, external auditory canals are patent EYES: Extraocular muscles are intact, pupil are equally round and reactive to light and accommodation MUSCULOSKELETAL: Well developed , well nourished, good range of motion ENDOCRINE: No thyromegaly was palpated LYMPHATICS: No cervical chain or axillary nodes were noted HEMATOPOIETIC: No bruising NECK: Supple, no JVD, no thyromegaly was noted LUNGS: Clear to auscultation in all lung mata without rhonchi or wheezing HEART: RRR, S!, S2 present. Peripheral pulses intact, no obvious murmurs noted ABDOMEN: Soft, nontender. Positive bowel sounds, no organomegaly, normal bowel sounds EXTREMITIES: Without clubbing, cyanosis, or edema. Pedal pulses intact. Negative Homans sign NEUROLOGIC: Normal speech and tone. A&O x 3, moves all extremities, no obvious focal deficits PSYCHIATRIC: Normal affect, normal mood. Stable SKIN: No ulcerations or rashes, good skin turgor, no jaundice VASCULAR: Good capillary refill, neurovascular bundle appears to be intact Labs: Labs: Laboratory Tests Test 05/22/21 14:05 05/22/21 14:15 05/22/21 16:45 White Blood Count 12.4 x10^3/uL (4.0-11.0) Red Blood Count 5.25 x10^6/uL (3.50-5.40) Hemoglobin 15.5 g/dL (12.0-15.5) Hematocrit 47.3 % (36.0-47.0) Mean Corpuscular Volume 90 fL (79-100) Mean Corpuscular Hemoglobin 30 pg (25-35) Mean Corpuscular Hemoglobin Concent 33 g/dL (31-37) Red Cell Distribution Width 13.9 % (11.5-14.5) Platelet Count 261 x10^3/uL (140-400) Neutrophils (%) (Auto) 62 % (31-73) Lymphocytes (%) (Auto) 26 % (24-48) Monocytes (%) (Auto) 9 % (0-9) Eosinophils (%) (Auto) 2 % (0-3) Basophils (%) (Auto) 1 % (0-3) Neutrophils # (Auto) 7.8 x10^3/uL (1.8-7.7) Lymphocytes # (Auto) 3.3 x10^3/uL (1.0-4.8) Monocytes # (Auto) 1.1 x10^3/uL (0.0-1.1) Eosinophils # (Auto) 0.2 x10^3/uL (0.0-0.7) Basophils # (Auto) 0.1 x10^3/uL (0.0-0.2) D-Dimer (Janice) 0.43 ug/mlFEU (0.00-0.50) Sodium Level 141 mmol/L (136-145) Potassium Level 4.4 mmol/L (3.5-5.1) Chloride Level 106 mmol/L (98-107) Carbon Dioxide Level 27 mmol/L (21-32) Anion Gap 8 (6-14) Blood Urea Nitrogen 19 mg/dL (7-20) Creatinine 1.2 mg/dL (0.6-1.0) Estimated GFR (Cockcroft-Gault) 43.6 BUN/Creatinine Ratio 16 (6-20) Glucose Level 100 mg/dL (70-99) Lactic Acid Level 1.1 mmol/L (0.4-2.0) Calcium Level 9.2 mg/dL (8.5-10.1) Magnesium Level 2.0 mg/dL (1.8-2.4) Total Bilirubin 0.8 mg/dL (0.2-1.0) Aspartate Amino Transf (AST/SGOT) 21 U/L (15-37) Alanine Aminotransferase (ALT/SGPT) 17 U/L (14-59) Alkaline Phosphatase 106 U/L (46-116) Troponin I High Sensitivity 8 ng/L (4-50) 10 ng/L (4-50) BA-Nsh-B-Type Natriuretic Peptide 122 pg/mL (0-449) Total Protein 7.3 g/dL (6.4-8.2) Albumin 3.6 g/dL (3.4-5.0) Albumin/Globulin Ratio 1.0 (1.0-1.7) Influenza Type A Antigen Negative (NEGATIVE) Influenza Type B Antigen Negative (NEGATIVE) SARS-CoV-2 Antigen (Rapid) Negative (NEGATIVE) Laboratory Tests Test 05/22/21 14:05 05/22/21 14:15 05/22/21 16:45 White Blood Count 12.4 x10^3/uL (4.0-11.0) Red Blood Count 5.25 x10^6/uL (3.50-5.40) Hemoglobin 15.5 g/dL (12.0-15.5) Hematocrit 47.3 % (36.0-47.0) Mean Corpuscular Volume 90 fL (79-100) Mean Corpuscular Hemoglobin 30 pg (25-35) Mean Corpuscular Hemoglobin Concent 33 g/dL (31-37) Red Cell Distribution Width 13.9 % (11.5-14.5) Platelet Count 261 x10^3/uL (140-400) Neutrophils (%) (Auto) 62 % (31-73) Lymphocytes (%) (Auto) 26 % (24-48) Monocytes (%) (Auto) 9 % (0-9) Eosinophils (%) (Auto) 2 % (0-3) Basophils (%) (Auto) 1 % (0-3) Neutrophils # (Auto) 7.8 x10^3/uL (1.8-7.7) Lymphocytes # (Auto) 3.3 x10^3/uL (1.0-4.8) Monocytes # (Auto) 1.1 x10^3/uL (0.0-1.1) Eosinophils # (Auto) 0.2 x10^3/uL (0.0-0.7) Basophils # (Auto) 0.1 x10^3/uL (0.0-0.2) D-Dimer (Janice) 0.43 ug/mlFEU (0.00-0.50) Sodium Level 141 mmol/L (136-145) Potassium Level 4.4 mmol/L (3.5-5.1) Chloride Level 106 mmol/L (98-107) Carbon Dioxide Level 27 mmol/L (21-32) Anion Gap 8 (6-14) Blood Urea Nitrogen 19 mg/dL (7-20) Creatinine 1.2 mg/dL (0.6-1.0) Estimated GFR (Cockcroft-Gault) 43.6 BUN/Creatinine Ratio 16 (6-20) Glucose Level 100 mg/dL (70-99) Lactic Acid Level 1.1 mmol/L (0.4-2.0) Calcium Level 9.2 mg/dL (8.5-10.1) Magnesium Level 2.0 mg/dL (1.8-2.4) Total Bilirubin 0.8 mg/dL (0.2-1.0) Aspartate Amino Transf (AST/SGOT) 21 U/L (15-37) Alanine Aminotransferase (ALT/SGPT) 17 U/L (14-59) Alkaline Phosphatase 106 U/L (46-116) Troponin I High Sensitivity 8 ng/L (4-50) 10 ng/L (4-50) TU-Jtw-Z-Type Natriuretic Peptide 122 pg/mL (0-449) Total Protein 7.3 g/dL (6.4-8.2) Albumin 3.6 g/dL (3.4-5.0) Albumin/Globulin Ratio 1.0 (1.0-1.7) Influenza Type A Antigen Negative (NEGATIVE) Influenza Type B Antigen Negative (NEGATIVE) SARS-CoV-2 Antigen (Rapid) Negative (NEGATIVE) Justifications for Admission Other Justification DOMINGA DUDLEY MD May 22, 2021 19:22
[2021-05-22] MEDS ORDERED: ONDANSETRON PF 4 MG/2 ML VIAL. IVP PRN ×2 (19:30→20:00)
[2021-05-22] MEDS ORDERED: ACETAMINOPHEN 325 MG TABLET. PO PRN ×2 (19:30→20:00)
[2021-05-22] MEDS ORDERED: ELECTROLYTE (NON-ICU) PROTOCOL. MC PRN (19:30)
[2021-05-22] MEDS ORDERED: CALCIUM CARBONATE 500 MG TAB.CHEW PO PRN (19:30)
[2021-05-22] MEDS ORDERED: oxyCODONE/APAP 5/325 1 TAB TABLET PO PRN (19:30)
[2021-05-22] MEDS: LISINOPRIL 20 MG TABLET PO SCH (20:00)
[2021-05-22] MEDS: SERTRALINE 50 MG TABLET. PO SCH (20:00)
[2021-05-22] MEDS ORDERED: MORPHINE SULFATE 2 MG/ML INJ. IVP PRN (20:00)
[2021-05-22] MEDS: HEPARIN for SUB-Q USE 5,000 UNIT/ML VIAL. SQ SCH (21:00)
[2021-05-22] MEDS ORDERED: CYCLOBENZAPRINE 10 MG TABLET. PO SCH (21:00)
[2021-05-22] MEDS: SENNOSIDES/DOCUSATE 8.6/50MG TABLET. PO SCH (21:00)
[2021-05-22] MEDS: cefTRIAXone IV Push 1 GM VIAL. IVP SCH (22:21)
[2021-05-22 23:06] VITALS: BP 141/57
[2021-05-23] MEDS: oxyCODONE/APAP 5/325 1 TAB TABLET PO PRN (01:00)
[2021-05-23 03:08] VITALS: BP 103/49
[2021-05-23] MEDS ORDERED: ATEN-57 PO (03:59)
[2021-05-23] MEDS ORDERED: LEVO50TA5 PO (03:59)
[2021-05-23] MEDS ORDERED: VITA100022 PO (03:59)
[2021-05-23] MEDS ORDERED: CETI10TA74 PO (03:59)
[2021-05-23] MEDS ORDERED: IBRU140C PO (03:59)
[2021-05-23] MEDS ORDERED: LEVO75CA4 PO (03:59)
[2021-05-23] MEDS: LEVOTHYROXINE 75 MCG TABLET PO SCH (06:37)
--- NOTE | 2021-05-23 06:41 | EKG ---
[facility] [address] [place] [address] Test Date: 2021-05-22 Test Time: 14:13:27 Pat Name: JOSELIN TEJEDA Department: Room: 538 1 Gender: F Lead Warehouse Associate: : 1945 Requested By: PATTY HILL Order Number: [id number] Reading MD: Heron Landa Measurements Intervals [place] Rate: 60 P: 24 [place]: 192 QRS: -6 QRSD: 84 T: -41 QT: 412 QTc: 416 Interpretive Statements SINUS RHYTHM LEFTWARD AXIS LVH WITH REPOLARIZATION ABNORMALITY ABNORMAL ECG Electronically Signed On 06-02-2021 9:46:28 CDT by Heron Landa
[2021-05-23 07:00] VITALS: BP 118/43
[2021-05-23] MEDS: SENNOSIDES/DOCUSATE 8.6/50MG TABLET. PO SCH ×3 (07:58→09:00)
[2021-05-23] MEDS: VITAMIN E 200 UNIT CAPSULE. PO SCH ×3 (07:58→09:00)
[2021-05-23] MEDS: SERTRALINE 50 MG TABLET. PO SCH (07:59)
[2021-05-23] MEDS: LISINOPRIL 20 MG TABLET PO SCH (07:59)
[2021-05-23] MEDS: ATENOLOL 50 MG TABLET. PO SCH (07:59)
[2021-05-23] MEDS: FLUTICASONE 50MCG/NASAL SPRAY 16GM BOTTLE. NS SCH (08:00)
[2021-05-23] MEDS: CETIRIZINE HCL 10 MG TABLET. PO SCH (08:00)
[2021-05-23] MEDS: HEPARIN for SUB-Q USE 5,000 UNIT/ML VIAL. SQ SCH ×2 (08:02→16:27)
[2021-05-23 11:00] VITALS: BP 107/47
--- NOTE | 2021-05-23 11:12 | PDOC2 ---
PRICE POZO PSYCHIATRIC SPECIALIST 05/23/21 1112: CARDIAC CONSULT DATE OF CONSULT Date of Consult DATE: 05/23/21 TIME: 11:00 REASON FOR CONSULT Reason for Consult: Hx of heart block, pacer interrogation REFERRING PHYSICIAN Referring Physician: Sanjay SOURCE Source: Chart review, Patient HISTORY OF PRESENT ILLNESS HISTORY OF PRESENT ILLNESS This is a 75 yo female admitted for complains of shortness of breath and this has been ongoing for 1 mo. More so with exertion. No fever or chills. No chest pain, nausea or vomiting. No palpitations, fever or chills. No productive cough. No peripheral edema, orthopnea. She takes imbruvica and was just recently reduced fom 3 caps to 2 caps taking it for CLL. PAST MEDICAL HISTORY Past Medical History Cardiovascular: HTN, Hyperlipidemia, CHB Pulmonary: Asthma GI: Diverticulosis Heme/Onc: Other (CLL) Hepatobiliary: No pertinent hx Psych: Anxiety Musculoskeletal: Osteoarthritis Rheumatologic: No pertinent hx Infectious disease: No pertinent hx ENT: No pertinent hx Renal/: No pertinent hx Endocrine: Diabetes Dermatology: No pertinent hx PAST SURGICAL HISTORY Past Surgical History Cataract Removal, Tonsillectomy, Hysterectomy, PPM FAMILY HISTORY Family History: Heart Disease SOCIAL HISTORY Smoke: No ALCOHOL: none Drugs: None Lives: with Family CURRENT MEDICATIONS CURRENT MEDICATIONS Current Medications Medications (Trade) Dose Ordered Sig/Naldo Route PRN Reason Start Time Stop Time Status Last Admin Dose Admin Lisinopril (Prinivil) 40 mg DAILY PO 05/22/21 20:00 05/23/21 07:59 Sertraline HCl (Zoloft) 50 mg DAILY PO 05/22/21 20:00 05/23/21 07:59 Furosemide (Lasix) 40 mg 1X ONCE IVP 05/22/21 19:15 05/22/21 19:23 DC 05/22/21 19:15 Ceftriaxone Sodium (Rocephin) 1 gm Q24H IVP 05/22/21 20:00 05/22/21 22:21 Oxycodone/ Acetaminophen (Percocet 5/325) 1 tab PRN Q4HRS PRN PO MILD PAIN, 1ST CHOICE 05/22/21 19:30 05/23/21 01:00 Senna/Docusate Sodium (Senna Plus) 1 tab BID PO 05/22/21 21:00 05/23/21 07:58 Heparin Sodium (Porcine) (Heparin Sodium) 5,000 unit Q12HR SQ 05/22/21 21:00 05/23/21 08:02 Cetirizine HCl (ZyrTEC) 10 mg DAILY PO 05/23/21 09:00 05/23/21 08:00 Levothyroxine Sodium (Synthroid) 75 mcg QM-F@0700 PO 05/23/21 07:00 05/23/21 06:37 Atenolol (Tenormin) 50 mg DAILY PO 05/23/21 09:00 05/23/21 07:59 ALLERGIES ALLERGIES: Coded Allergies: No Known Drug Allergies (Unverified , 07/01/14) ROS Review of System 14 point ROS evaluated with pertinent positives noted per HPI PHYSICAL EXAM General: Alert, Oriented X3, Cooperative, No acute distress HEENT: Atraumatic, Mucous membr. moist/pink Lungs: Other (diffuse fine crackles) Heart: Regular rate (atrial pacing), Normal S1, Normal S2, No murmurs Abdomen: Soft, No tenderness Extremities: No cyanosis, No edema Skin: No breakdown, No significant lesion Neuro: Normal speech, Sensation intact Psych/Mental Status: Mental status NL, Mood NL MUSCULOSKELETAL: Osteoarthritic changes both hands VITALS/I&O VITALS/I&O: Vital Signs Date Time Temp Pulse Resp B/P (MAP) Pulse Ox O2 Delivery O2 Flow Rate FiO2 05/23/21 07:59 60 118/43 05/23/21 07:00 97.3 18 95 97.3 05/23/21 03:08 Nasal Cannula 05/23/21 01:30 2.0 I & O 05/22/21 05/22/21 05/23/21 15:00 23:00 07:00 Output Total 500 ml Balance -500 ml LABS Lab: Laboratory Tests Test 05/22/21 14:05 05/22/21 14:15 05/22/21 16:45 05/22/21 20:25 White Blood Count 12.4 x10^3/uL (4.0-11.0) H Red Blood Count 5.25 x10^6/uL (3.50-5.40) Hemoglobin 15.5 g/dL (12.0-15.5) Hematocrit 47.3 % (36.0-47.0) H Mean Corpuscular Volume 90 fL (79-100) Mean Corpuscular Hemoglobin 30 pg (25-35) Mean Corpuscular Hemoglobin Concent 33 g/dL (31-37) Red Cell Distribution Width 13.9 % (11.5-14.5) Platelet Count 261 x10^3/uL (140-400) Neutrophils (%) (Auto) 62 % (31-73) Lymphocytes (%) (Auto) 26 % (24-48) Monocytes (%) (Auto) 9 % (0-9) Eosinophils (%) (Auto) 2 % (0-3) Basophils (%) (Auto) 1 % (0-3) Neutrophils # (Auto) 7.8 x10^3/uL (1.8-7.7) H Lymphocytes # (Auto) 3.3 x10^3/uL (1.0-4.8) Monocytes # (Auto) 1.1 x10^3/uL (0.0-1.1) Eosinophils # (Auto) 0.2 x10^3/uL (0.0-0.7) Basophils # (Auto) 0.1 x10^3/uL (0.0-0.2) D-Dimer (Janice) 0.43 ug/mlFEU (0.00-0.50) Sodium Level 141 mmol/L (136-145) Potassium Level 4.4 mmol/L (3.5-5.1) Chloride Level 106 mmol/L (98-107) Carbon Dioxide Level 27 mmol/L (21-32) Anion Gap 8 (6-14) Blood Urea Nitrogen 19 mg/dL (7-20) Creatinine 1.2 mg/dL (0.6-1.0) H Estimated GFR (Cockcroft-Gault) 43.6 BUN/Creatinine Ratio 16 (6-20) Glucose Level 100 mg/dL (70-99) H Lactic Acid Level 1.1 mmol/L (0.4-2.0) Calcium Level 9.2 mg/dL (8.5-10.1) Magnesium Level 2.0 mg/dL (1.8-2.4) Total Bilirubin 0.8 mg/dL (0.2-1.0) Aspartate Amino Transferase (AST) 21 U/L (15-37) Alanine Aminotransferase (ALT) 17 U/L (14-59) Alkaline Phosphatase 106 U/L (46-116) Troponin I High Sensitivity 8 ng/L (4-50) 10 ng/L (4-50) 8 ng/L (4-50) YJ-Jgs-O-Type Natriuretic Peptide 122 pg/mL (0-449) Total Protein 7.3 g/dL (6.4-8.2) Albumin 3.6 g/dL (3.4-5.0) Albumin/Globulin Ratio 1.0 (1.0-1.7) Influenza Type A Antigen Negative (NEGATIVE) Influenza Type B Antigen Negative (NEGATIVE) SARS-CoV-2 Antigen (Rapid) Negative (NEGATIVE) Laboratory Tests 05/22/21 14:05 Laboratory Tests 05/22/21 14:05 ECHOCARDIOGRAM ECHOCARDIOGRAM <Conclusion> The left ventricle is normal size. The left ventricular systolic function is normal and the ejection fraction is within normal range. LV ejection fraction is 55 to 60%. Doppler and Color Flow revealed trace aortic regurgitation. There is no significant aortic valvular stenosis. Doppler and Color-flow revealed trace mitral regurgitation. Doppler and Color Flow revealed trace tricuspid regurgitation. Estimated PAP 23 mmHG. DATE: 03/07/21 STRESS TEST STRESS TEST Conclusion 1. No EKG evidence of stress-induced ischemia. 2. Nuclear imaging shows no reversible ischemia or infarct. 3. Normal left ventricular systolic function with an ejection fraction of greater than 70%. 4. Low risk Lexiscan nuclear stress test. DATE: 03/07/21 [id number] ASSESSMENT/PLAN ASSESSMENT/PLAN 1. Dyspnea: clinically no CHF. Possible ILD which could be related to imbruvica 2. PPM in situ: Biotronik. Normal device function, no arrhythmias, 0 RV pacing 3. HTN: controlled 4. Hypothyroidism; on replacement 5. HLP 6. Hx of CLL Recommendations 1. Recent MPI and TTE unremarkable. Will obtain Noncontrast CT chest today 2. Continue secondary prevention measures. 3. Supportive care. JOSE A KEITA MD 05/23/212058: CARDIAC CONSULT ASSESSMENT/PLAN ASSESSMENT/PLAN Patient seen and examined. Agree with APPLICATION INTEGRATION SPECIALIST's assessment and plan. Agree that there is no clinical evidence for CHF PPM with normal function Recent echo and MPI without any significant abnormalities CT chest pending Thank you for your consultation PRICE POZO PSYCHIATRIC SPECIALIST May 23, 2021 11:12 JOSE A KEITA MD May 23, 2021 20:59
--- NOTE | 2021-05-23 12:56 | NUR ---
SS following for discharge planning. SS reviewed pt chart and discussed with pt RN. Pt is from home and is currently requiring oxygen at two liters nasal canula. COVID19 PCR test pending. Pt on IV Rocephin. Cardiology following. PT/OT ordered. Pt had chest CT today. SS will continue to follow for discharge planning.
[2021-05-23 15:00] VITALS: BP 113/50
--- NOTE | 2021-05-23 15:42 | PDOC ---
[employer] PROGRESS NOTE Date of Service DOS: DATE: 05/23/21 TIME: 15:38 Chief Complaint Chief Complaint acute shortness of breath, appears as CHF on CXR,but rales on exam, check CT scna concner for interstitial lung disease, check CT scan, consult PULM PPM in situ: Biotronik. Normal device function, no arrhythmias, 0 RV pacing 3. HTN: controlled 4. Hypothyroidism; on replacement 5. HLP 6. Hx of CLL Recommendations 1. Recent MPI and TTE unremarkable. Will obtain Noncontrast CT chest today 2. Continue secondary prevention measures. 3. Supportive care. History of Present Illness History of Present Illness complains of the food, on a low sodium heart healthy diet, has no heart problem, had a pacemaker placed, cardiac problem resolved, no CAD, no HTN feels better with oxygen placed, PULM consult, eval, CT scan done will 6 min walk in AM for DC plan Vitals/I&O Vitals/I&O: Vital Signs Date Time Temp Pulse Resp B/P (MAP) Pulse Ox O2 Delivery O2 Flow Rate FiO2 05/23/21 11:00 97.7 60 18 107/47 (67) 92 97.7 05/23/21 08:00 Nasal Cannula 2.0 I & O 05/22/21 05/22/21 05/23/21 15:00 23:00 07:00 Output Total 500 ml Balance -500 ml Physical Exam General: Alert, Oriented X3, Cooperative, No acute distress Heart: Regular rate (atrial pacing), Normal S1, Normal S2, No murmurs Lungs: Other (rales, no crackles, rusting, fine, dry) Abdomen: Soft, No tenderness Extremities: No cyanosis, No edema Skin: No breakdown, No significant lesion Labs Labs: Laboratory Tests Test 05/22/21 16:45 05/22/21 20:25 Troponin I High Sensitivity 10 ng/L (4-50) 8 ng/L (4-50) Assessment and Plan Assessmemt and Plan Problems Medical Problems: (1) Shortness of breath Status: Acute Comment Review of Relevant I have reviewed the following items darek (where applicable) has been applied. Medications: Current Medications Medications (Trade) Dose Ordered Sig/Naldo Route PRN Reason Start Time Stop Time Status Last Admin Dose Admin Lisinopril (Prinivil) 40 mg DAILY PO 05/22/21 20:00 05/23/21 07:59 Sertraline HCl (Zoloft) 50 mg DAILY PO 05/22/21 20:00 05/23/21 07:59 Furosemide (Lasix) 40 mg 1X ONCE IVP 05/22/21 19:15 05/22/21 19:23 DC 05/22/21 19:15 Ceftriaxone Sodium (Rocephin) 1 gm Q24H IVP 05/22/21 20:00 05/22/21 22:21 Oxycodone/ Acetaminophen (Percocet 5/325) 1 tab PRN Q4HRS PRN PO MILD PAIN, 1ST CHOICE 05/22/21 19:30 05/23/21 01:00 Senna/Docusate Sodium (Senna Plus) 1 tab BID PO 05/22/21 21:00 05/23/21 07:58 Heparin Sodium (Porcine) (Heparin Sodium) 5,000 unit Q12HR SQ 05/22/21 21:00 05/23/21 08:02 Cetirizine HCl (ZyrTEC) 10 mg DAILY PO 05/23/21 09:00 05/23/21 08:00 Levothyroxine Sodium (Synthroid) 75 mcg QM-F@0700 PO 05/23/21 07:00 05/23/21 06:37 Atenolol (Tenormin) 50 mg DAILY PO 05/23/21 09:00 05/23/21 07:59 Justifications for Admission Other Justification BLAKE VERA MD May 23, 2021 15:41
--- NOTE | 2021-05-23 16:13 | RAD ---
CT THORAX WO INDICATION: dyspnea . COMPARISON STUDY: Radiograph 05/22/2021. TECHNIQUE: Unenhanced axial images were obtained through the lungs and upper abdomen. Coronal and sa gittal multiplanar reconstructions were also obtained. PQRS compliance statement: One or more of the following individualized dose reduction techniques were utilized for this examinat ion: 1. Automated exposure control 2. Adjustment of the mA and/or kV according to patient size 3. Use of iterative reconstruction technique FINDINGS: Lungs and Airways: Bilateral groundglass opacities and consolidation. Normal central airways. Pleura: The pleural spaces are normal. Heart and Mediastinum: The visualized thyroid gland is normal in size and attenuation. No axillary or supraclavicular lymphadenopathy. No mediastinal, hilar or retrocrural lymphadenopathy. Normal cardia c size. Coronary artery atherosclerotic disease. Normal caliber thoracic aorta. Abdomen: The visualized abdominal organs demonstrate no abnormality. Bones and Soft Tissues: Degenerative changes of the spine. IMPRESSION: Bilateral groundglass opacities and consolidation, probably pulmonary edema or infection Electronically signed by: Bao Guerrier MD (05/23/2021 4:11 PM) [facility]
--- NOTE | 2021-05-23 16:29 | NUR ---
Patient refused heparin this AM because she thinks it will interact with leukemia medication that she is taking.
--- NOTE | 2021-05-23 16:37 | NUR ---
Dr. Henson notified of consult for patient when he came to the unit.
--- NOTE | 2021-05-23 17:57 | PDOC ---
PULMONARY PROGRESS NOTES DATE: 05/23/21 TIME: 17:56 Vitals Vital Signs Date Time Temp Pulse Resp B/P (MAP) Pulse Ox O2 Delivery O2 Flow Rate FiO2 05/23/21 15:00 98.0 60 18 113/50 (71) 92 98.0 05/23/21 08:00 Nasal Cannula 2.0 Lungs: Other (rales, no crackles, rusting, fine, dry) Labs Laboratory Tests Test 05/22/21 14:05 05/22/21 14:15 05/22/21 16:45 05/22/21 20:25 White Blood Count 12.4 x10^3/uL (4.0-11.0) Red Blood Count 5.25 x10^6/uL (3.50-5.40) Hemoglobin 15.5 g/dL (12.0-15.5) Hematocrit 47.3 % (36.0-47.0) Mean Corpuscular Volume 90 fL (79-100) Mean Corpuscular Hemoglobin 30 pg (25-35) Mean Corpuscular Hemoglobin Concent 33 g/dL (31-37) Red Cell Distribution Width 13.9 % (11.5-14.5) Platelet Count 261 x10^3/uL (140-400) Neutrophils (%) (Auto) 62 % (31-73) Lymphocytes (%) (Auto) 26 % (24-48) Monocytes (%) (Auto) 9 % (0-9) Eosinophils (%) (Auto) 2 % (0-3) Basophils (%) (Auto) 1 % (0-3) Neutrophils # (Auto) 7.8 x10^3/uL (1.8-7.7) Lymphocytes # (Auto) 3.3 x10^3/uL (1.0-4.8) Monocytes # (Auto) 1.1 x10^3/uL (0.0-1.1) Eosinophils # (Auto) 0.2 x10^3/uL (0.0-0.7) Basophils # (Auto) 0.1 x10^3/uL (0.0-0.2) D-Dimer (Janice) 0.43 ug/mlFEU (0.00-0.50) Sodium Level 141 mmol/L (136-145) Potassium Level 4.4 mmol/L (3.5-5.1) Chloride Level 106 mmol/L (98-107) Carbon Dioxide Level 27 mmol/L (21-32) Anion Gap 8 (6-14) Blood Urea Nitrogen 19 mg/dL (7-20) Creatinine 1.2 mg/dL (0.6-1.0) Estimated GFR (Cockcroft-Gault) 43.6 BUN/Creatinine Ratio 16 (6-20) Glucose Level 100 mg/dL (70-99) Lactic Acid Level 1.1 mmol/L (0.4-2.0) Calcium Level 9.2 mg/dL (8.5-10.1) Magnesium Level 2.0 mg/dL (1.8-2.4) Total Bilirubin 0.8 mg/dL (0.2-1.0) Aspartate Amino Transf (AST/SGOT) 21 U/L (15-37) Alanine Aminotransferase (ALT/SGPT) 17 U/L (14-59) Alkaline Phosphatase 106 U/L (46-116) Troponin I High Sensitivity 8 ng/L (4-50) 10 ng/L (4-50) 8 ng/L (4-50) NK-Abr-A-Type Natriuretic Peptide 122 pg/mL (0-449) Total Protein 7.3 g/dL (6.4-8.2) Albumin 3.6 g/dL (3.4-5.0) Albumin/Globulin Ratio 1.0 (1.0-1.7) Coronavirus (COVID-19)(PCR) Not detected (NOT DETECTD) Influenza Type A Antigen Negative (NEGATIVE) Influenza Type B Antigen Negative (NEGATIVE) SARS-CoV-2 Antigen (Rapid) Negative (NEGATIVE) Laboratory Tests Test 05/22/21 20:25 Troponin I High Sensitivity 8 ng/L (4-50) Medications Active Scripts Medications Dose Route/Sig Max Daily Dose Days Date Category Dose Instructions Zyrtec (Cetirizine Hcl) 10 Mg Tablet 1 Tab PO DAILY 05/23/21 Reported Vitamin E (Vitamin E Acetate) 1,000 Unit Capsule 1 Cap PO DAILYWBKFT 30 05/23/21 Reported Levothyroxine Sodium 50 Mcg Tablet 1 Tab PO QSASU 05/23/21 Reported Levothyroxine (Levothyroxine Sodium) 75 Mcg Capsule 75 Mcg PO QM-F 4/6/22 Reported Tenormin (Atenolol) 50 Mg Tablet 1 Tab PO DAILY 30 05/23/21 Reported Imbruvica (Ibrutinib) 140 Mg Capsule 140 Mg PO DAILY08 05/23/21 Reported Percocet 5-325 Mg Tablet (Oxycodone/Acetaminophen) 1 Each Tablet 1-2 Each PO PRN TID PRN 05/07/19 Rx pain Zoloft (Sertraline Hcl) 50 Mg Tablet 50 Mg PO DAILY 07/01/14 Reported Lisinopril 40 Mg Tablet 40 Mg PO DAILY 07/01/14 Reported Hydrocodone-Apap 5-325 (Hydrocodone Bit/Acetaminophen) 1 Each Tablet 1 Tab PO Q4HRS PRN 07/01/14 Reported Fluticasone Propionate Nasal Ki[place] (Fluticasone Propionate) 16 Gm Kihei.susp 1 [place]hei NS DAILY 07/01/14 Reported Impression . Consult dictated Abnormal chest x-ray revealing groundglass opacities nonspecific, along with int erstitial infiltrates Possible nonspecific interstitial pneumonitis See orders DANIEL DESAI MD May 23, 2021 17:57
[2021-05-23 19:00] VITALS: BP 111/47
[2021-05-23] MEDS: cefTRIAXone IV Push 1 GM VIAL. IVP SCH (21:31)
--- NOTE | 2021-05-23 22:48 | CONS ---
DATE OF CONSULTATION: 05/23/2021 ATTENDING PHYSICIAN: Dr. Grace. REASON FOR CONSULTATION: The patient is seen in pulmonary consultation at the request of Dr. Grace for abnormal chest x-ray and CT chest. HISTORY OF PRESENT ILLNESS: The patient is a 75-year-old who was admitted for shortness of breath. She follows Dr. Lyons for CLL. She is on Imbruvica. She called the office complaining of shortness of breath. She was referred to the Emergency Department. She was seen in the Emergency Department. She had a chest x-ray, which revealed some ill-defined infiltrates, bilateral interstitial opacities, probably edema. She was admitted. Cardiology has seen her and does not think that she has CHF. A chest x-ray was obtained, which revealed ground glass opacities and some consolidation in both lungs. I compared the current x-ray to the previous x-ray of 04/05. At that time, she had some increased lung markings. Upon further questioning, the patient has never smoked. She was not raised on a farm. She has no pets at home. She has had multiple echocardiograms with normal ejection fraction. She denies any productive cough, no hemoptysis. She does have a history of CLL, hyperlipidemia. PAST MEDICAL HISTORY: Hypertension, hyperlipidemia, CLL, osteoarthritis, diverticulosis. She has never smoked. PAST SURGICAL HISTORY: Tonsillectomy, hysterectomy, had a previous pacemaker implantation. REVIEW OF SYSTEMS: As indicated above, otherwise other systems were reviewed and negative. Last echocardiogram revealed ejection fraction 55-60%, pulmonary artery pressure of 23. She had a previous stress test on 03/07/2021 with low risk Lexiscan nuclear stress test. CURRENT MEDICATIONS: List was reviewed. ALLERGIES: No known drug allergies. SOCIAL HISTORY: She is a lifetime nonsmoker. PHYSICAL EXAMINATION: VITAL SIGNS: Stable. O2 saturation currently on 2 liters greater than 92%. HEENT: Eyes: The sclerae were nonicteric. NECK: Jugular venous distention was not elevated. No lymphadenopathy. CHEST: Full expansion. LUNGS: Adequate flow with crackles in the bases. CARDIOVASCULAR: Regular rate and rhythm with S1, S2, no S3. ABDOMEN: Soft, nontender, nondistended. EXTREMITIES: No clubbing, cyanosis or edema. LABORATORY DATA: Reviewed. SARS-CoV-2 testing was negative. D-dimer was not elevated. Electrolytes were normal. White count was slightly elevated. Chest x-ray and CT as indicated above. IMPRESSION: 1. Abnormal chest x-ray, compatible with nonspecific interstitial pneumonitis. 2. Progressive dyspnea secondary to above. 3. Hypertension. 4. Respiratory failure secondary to above. 5. Status post permanent pacemaker. 6. Hypothyroidism. 7. History of chronic lymphocytic leukemia. DISCUSSION: I have reviewed the CT chest, there is evidence of some ill-defined infiltrates, both interstitial and alveolar in nature, ground glass opacities, which are mild. 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 I am not able to identify any cause for abnormal CT chest. With that being said, we will proceed with full pulmonary function testing as an outpatient. For now, treat with steroids and antibiotics, follow up in the outpatient department. We will work the patient up for the possibility of autoimmune disease associated interstitial lung disease. I do appreciate the privilege in sharing in the patient's care. DE DR: Nilesh TID: [id number]
[2021-05-23 23:00] VITALS: BP 140/41
[2021-05-24] MEDS: LEVOTHYROXINE 75 MCG TABLET PO SCH (06:10)
[2021-05-24] MEDS: oxyCODONE/APAP 5/325 1 TAB TABLET PO PRN (06:11)
[2021-05-24 07:00] VITALS: BP 93/36
[2021-05-24] MEDS: CETIRIZINE HCL 10 MG TABLET. PO SCH (08:51)
[2021-05-24] MEDS: FLUTICASONE 50MCG/NASAL SPRAY 16GM BOTTLE. NS SCH (08:51)
[2021-05-24] MEDS: SERTRALINE 50 MG TABLET. PO SCH (08:51)
[2021-05-24] MEDS: LISINOPRIL 20 MG TABLET PO SCH (09:00)
[2021-05-24] MEDS: ATENOLOL 50 MG TABLET. PO SCH (09:00)
[2021-05-24] MEDS: HEPARIN for SUB-Q USE 5,000 UNIT/ML VIAL. SQ SCH (09:00)
--- NOTE | 2021-05-24 09:59 | PDOC ---
PULMONARY PROGRESS NOTES DATE: 05/24/21 TIME: 09:58 Subjective Patient feels about the same, now more short of breath Vitals Vital Signs Date Time Temp Pulse Resp B/P (MAP) Pulse Ox O2 Delivery O2 Flow Rate FiO2 05/24/21 09:00 60 93/63 05/24/21 08:00 Nasal Cannula 2.0 05/24/21 07:00 97.4 18 92 97.4 ROS: No Nausea, No Chest Pain, No Abdominal Pain, No Increase Cough General: Alert Lungs: Crackles Cardiovascular: S1, S2 Abdomen: Soft Neuro Exam: Alert Extremities: No Edema Skin: Warm Labs Laboratory Tests Test 05/22/21 14:05 05/22/21 14:15 05/22/21 16:45 05/22/21 20:25 White Blood Count 12.4 x10^3/uL (4.0-11.0) Red Blood Count 5.25 x10^6/uL (3.50-5.40) Hemoglobin 15.5 g/dL (12.0-15.5) Hematocrit 47.3 % (36.0-47.0) Mean Corpuscular Volume 90 fL (79-100) Mean Corpuscular Hemoglobin 30 pg (25-35) Mean Corpuscular Hemoglobin Concent 33 g/dL (31-37) Red Cell Distribution Width 13.9 % (11.5-14.5) Platelet Count 261 x10^3/uL (140-400) Neutrophils (%) (Auto) 62 % (31-73) Lymphocytes (%) (Auto) 26 % (24-48) Monocytes (%) (Auto) 9 % (0-9) Eosinophils (%) (Auto) 2 % (0-3) Basophils (%) (Auto) 1 % (0-3) Neutrophils # (Auto) 7.8 x10^3/uL (1.8-7.7) Lymphocytes # (Auto) 3.3 x10^3/uL (1.0-4.8) Monocytes # (Auto) 1.1 x10^3/uL (0.0-1.1) Eosinophils # (Auto) 0.2 x10^3/uL (0.0-0.7) Basophils # (Auto) 0.1 x10^3/uL (0.0-0.2) D-Dimer (Janice) 0.43 ug/mlFEU (0.00-0.50) Sodium Level 141 mmol/L (136-145) Potassium Level 4.4 mmol/L (3.5-5.1) Chloride Level 106 mmol/L (98-107) Carbon Dioxide Level 27 mmol/L (21-32) Anion Gap 8 (6-14) Blood Urea Nitrogen 19 mg/dL (7-20) Creatinine 1.2 mg/dL (0.6-1.0) Estimated GFR (Cockcroft-Gault) 43.6 BUN/Creatinine Ratio 16 (6-20) Glucose Level 100 mg/dL (70-99) Lactic Acid Level 1.1 mmol/L (0.4-2.0) Calcium Level 9.2 mg/dL (8.5-10.1) Magnesium Level 2.0 mg/dL (1.8-2.4) Total Bilirubin 0.8 mg/dL (0.2-1.0) Aspartate Amino Transf (AST/SGOT) 21 U/L (15-37) Alanine Aminotransferase (ALT/SGPT) 17 U/L (14-59) Alkaline Phosphatase 106 U/L (46-116) Troponin I High Sensitivity 8 ng/L (4-50) 10 ng/L (4-50) 8 ng/L (4-50) QH-Wsw-K-Type Natriuretic Peptide 122 pg/mL (0-449) Total Protein 7.3 g/dL (6.4-8.2) Albumin 3.6 g/dL (3.4-5.0) Albumin/Globulin Ratio 1.0 (1.0-1.7) Coronavirus (COVID-19)(PCR) Not detected (NOT DETECTD) Influenza Type A Antigen Negative (NEGATIVE) Influenza Type B Antigen Negative (NEGATIVE) SARS-CoV-2 Antigen (Rapid) Negative (NEGATIVE) Test 05/23/21 19:25 Erythrocyte Sedimentation Rate 10 (0-25) C-Reactive Protein, Quantitative 6.9 mg/L (0-3.3) Laboratory Tests Test 05/23/21 19:25 Erythrocyte Sedimentation Rate 10 (0-25) C-Reactive Protein, Quantitative 6.9 mg/L (0-3.3) Medications Active Scripts Medications Dose Route/Sig Max Daily Dose Days Date Category Dose Instructions Zyrtec (Cetirizine Hcl) 10 Mg Tablet 1 Tab PO DAILY 05/23/21 Reported Vitamin E (Vitamin E Acetate) 1,000 Unit Capsule 1 Cap PO DAILYWBKFT 30 05/23/21 Reported Levothyroxine Sodium 50 Mcg Tablet 1 Tab PO QSASU 05/23/21 Reported Levothyroxine (Levothyroxine Sodium) 75 Mcg Capsule 75 Mcg PO QM-F 05/23/21 Reported Tenormin (Atenolol) 50 Mg Tablet 1 Tab PO DAILY 30 05/23/21 Reported Imbruvica (Ibrutinib) 140 Mg Capsule 140 Mg PO DAILY08 05/23/21 Reported Percocet 5-325 Mg Tablet (Oxycodone/Acetaminophen) 1 Each Tablet 1-2 Each PO PRN TID PRN 05/07/19 Rx pain Zoloft (Sertraline Hcl) 50 Mg Tablet 50 Mg PO DAILY 07/01/14 Reported Lisinopril 40 Mg Tablet 40 Mg PO DAILY 07/01/14 Reported Hydrocodone-Apap 5-325 (Hydrocodone Bit/Acetaminophen) 1 Each Tablet 1 Tab PO Q4HRS PRN 07/01/14 Reported Fluticasone Propionate Nasal [place] (Fluticasone Propionate) 16 Gm [place].susp 1 [place] NS DAILY 07/01/14 Reported Impression . IMPRESSION: 1. Abnormal chest x-ray, compatible with nonspecific interstitial pneumonitis. 2. Progressive dyspnea secondary to above. 3. Hypertension. 4. Respiratory failure secondary to above. 5. Status post permanent pacemaker. 6. Hypothyroidism. 7. History of chronic lymphocytic leukemia. Plan . Updated 05/[address] Acuna Discharge today Patient given a follow-up appointment with me on 12 June Prednisone 30 mg daily till she sees me in the office Repeat CT scan in 2 to 4 months 6-minute walk prior to vacuum cooker operator notified of the above DISCUSSION: I have reviewed the CT chest, there is evidence of some ill-defined infiltrates, both interstitial and alveolar in nature, ground glass opacities, which are mild. 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 I am not able to identify any cause for abnormal CT chest. With that being said, we will proceed with full pulmonary function testing as an outpatient. For now, treat with steroids and antibiotics, follow up in the outpatient department. We will work the patient up for the possibility of autoimmune disease associated interstitial lung disease. I do appreciate the privilege in sharing in the patient's care. DANIEL DESAI MD May 24, 2021 09:59
[2021-05-24 11:00] VITALS: BP 113/50
--- NOTE | 2021-05-24 11:56 | PDOC ---
PRICE POZO BEVEL OPERATOR 05/24/21 1156: CARDIO Progress Notes Date and Time Date of Service 05/24/2021 Time of Evaluation 1130 Subjective Subjective: No Chest Pain, No shortness of breath, No Palpitations Vitals Vitals Vital Signs Date Time Temp Pulse Resp B/P (MAP) Pulse Ox O2 Delivery O2 Flow Rate FiO2 05/24/21 11:00 97.4 60 18 113/50 (71) 94 Nasal Cannula 2.0 97.4 Weight Weight [ ] Input and Output Intake and Output Intake and Output 05/24/21 07:00 Intake Total 1200 ml Balance 1200 ml Intake Oral 1200 ml # Voids 3 Laboratory Labs Laboratory Tests Test 05/23/21 19:25 Erythrocyte Sedimentation Rate 10 (0-25) C-Reactive Protein, Quantitative 6.9 mg/L (0-3.3) Microbiology Micro Microbiology 05/22/21 Blood Culture - Preliminary, Resulted NO GROWTH AFTER 1 DAY Physical Exam HEENT: Neck Supple W Full Motion Chest: Symmetric LUNGS: Other (diffuse crackles) Heart: RRR (atrial pacing) Abdomen: Soft N/T Extremities: No Edema, No Calf Tenderness Neurology: alert, oriented, follow commands Assessment Assessment 1. Dyspnea: clinically no CHF. interstitial pneumonitis per pulmonary 2. PPM in situ: Biotronik. Normal device function, no arrhythmias, 0 RV pacing 3. HTN: controlled 4. Hypothyroidism; on replacement 5. HLP 6. Hx of CLL: on imbruvica Recommendations 1. Recent MPI and TTE unremarkable. 2. Continue secondary prevention measures. 3. Supportive care. Justicifation of Admission Dx: Justifications for Admission: Justification of Admission Dx: Yes JOSE A KEITA MD 05/24/218: CARDIO Progress Notes Assessment Assessment Patient seen and examined. Agree with AESTHETICS INSTRUCTOR's assessment and plan. Agree that there is no clinical evidence for CHF PPM with normal function Recent echo and MPI without any significant abnormalities Follow up as scheduled PRICE POZO APRN May 24, 2021 11:56 JOSE A KEITA MD May 24, 2021 22:08
[2021-05-24] MEDS ORDERED: AZIT250T6 PO (13:03)
[2021-05-24] MEDS ORDERED: PRED-220 PO (13:03)
--- NOTE | 2021-05-24 13:06 | PDOC3 ---
Discharge Summary Visit Information Date of Admission: May 22, 2021 Date of Discharge: May 24, 2021 Final Diagnosis 1. acute nonspecific interstitial pneumonitis. 2. Progressive dyspnea ,CHF symptoms on admit, 3. Hypertension. 4. acute hypoxic respiratory failure 5. Status post permanent pacemaker. 6. Hypothyroidism. 7. History of chronic lymphocytic leukemia. 8, chronic pain, on percocet PRN ath ome Problems Medical Problems: (1) Shortness of breath Status: Acute Brief Hospital Course Allergies Allergies Coded Allergies Type Severity Reaction Last Updated Verified No Known Drug Allergies 07/01/14 No Vital Signs Vital Signs Date Time Temp Pulse Resp B/P (MAP) Pulse Ox O2 Delivery O2 Flow Rate FiO2 05/24/21 11:00 97.4 60 18 113/50 (71) 94 Nasal Cannula 2.0 97.4 Lab Results Laboratory Tests Test 05/22/21 14:05 05/22/21 14:15 05/22/21 16:45 05/22/21 20:25 White Blood Count 12.4 x10^3/uL (4.0-11.0) Red Blood Count 5.25 x10^6/uL (3.50-5.40) Hemoglobin 15.5 g/dL (12.0-15.5) Hematocrit 47.3 % (36.0-47.0) Mean Corpuscular Volume 90 fL (79-100) Mean Corpuscular Hemoglobin 30 pg (25-35) Mean Corpuscular Hemoglobin Concent 33 g/dL (31-37) Red Cell Distribution Width 13.9 % (11.5-14.5) Platelet Count 261 x10^3/uL (140-400) Neutrophils (%) (Auto) 62 % (31-73) Lymphocytes (%) (Auto) 26 % (24-48) Monocytes (%) (Auto) 9 % (0-9) Eosinophils (%) (Auto) 2 % (0-3) Basophils (%) (Auto) 1 % (0-3) Neutrophils # (Auto) 7.8 x10^3/uL (1.8-7.7) Lymphocytes # (Auto) 3.3 x10^3/uL (1.0-4.8) Monocytes # (Auto) 1.1 x10^3/uL (0.0-1.1) Eosinophils # (Auto) 0.2 x10^3/uL (0.0-0.7) Basophils # (Auto) 0.1 x10^3/uL (0.0-0.2) D-Dimer (Janice) 0.43 ug/mlFEU (0.00-0.50) Sodium Level 141 mmol/L (136-145) Potassium Level 4.4 mmol/L (3.5-5.1) Chloride Level 106 mmol/L (98-107) Carbon Dioxide Level 27 mmol/L (21-32) Anion Gap 8 (6-14) Blood Urea Nitrogen 19 mg/dL (7-20) Creatinine 1.2 mg/dL (0.6-1.0) Estimated GFR (Cockcroft-Gault) 43.6 BUN/Creatinine Ratio 16 (6-20) Glucose Level 100 mg/dL (70-99) Lactic Acid Level 1.1 mmol/L (0.4-2.0) Calcium Level 9.2 mg/dL (8.5-10.1) Magnesium Level 2.0 mg/dL (1.8-2.4) Total Bilirubin 0.8 mg/dL (0.2-1.0) Aspartate Amino Transf (AST/SGOT) 21 U/L (15-37) Alanine Aminotransferase (ALT/SGPT) 17 U/L (14-59) Alkaline Phosphatase 106 U/L (46-116) Troponin I High Sensitivity 8 ng/L (4-50) 10 ng/L (4-50) 8 ng/L (4-50) DQ-Kro-A-Type Natriuretic Peptide 122 pg/mL (0-449) Total Protein 7.3 g/dL (6.4-8.2) Albumin 3.6 g/dL (3.4-5.0) Albumin/Globulin Ratio 1.0 (1.0-1.7) Coronavirus (COVID-19)(PCR) Not detected (NOT DETECTD) Influenza Type A Antigen Negative (NEGATIVE) Influenza Type B Antigen Negative (NEGATIVE) SARS-CoV-2 Antigen (Rapid) Negative (NEGATIVE) Test 05/23/21 19:25 Erythrocyte Sedimentation Rate 10 (0-25) C-Reactive Protein, Quantitative 6.9 mg/L (0-3.3) Laboratory Tests Test 05/23/21 19:25 Erythrocyte Sedimentation Rate 10 (0-25) C-Reactive Protein, Quantitative 6.9 mg/L (0-3.3) Brief Hospital Course Ms. Wilson is a 75 old female, admit for shortness of breath, CHF symptoms , CXR looked congested, but exam had rales, pneumonitis, concern for interstiital disease, prednisone started , abx given adn patient made marked improvement cotn stteroids, Discharge Information Condition at Discharge: Improved Follow Up: Weeks Disposition/Orders: D/C to Home Scheduled Atenolol (Tenormin) 50 Mg Tablet, 1 TAB PO DAILY for htn for 30 Days, #30 Ref 0 (Reported) Entered as Reported by: Irene Hodge on 05/23/21358 Last Action: Continued on 05/23/21600 by Irene Hodge Azithromycin (Azithromycin Tablet) 250 Mg Tablet, 1 PKG PO UD for COPD for 7 Days, #7 Ref 0 2 the first day followed by 1 for days 2-5 Prescribed by: BLAKE VERA on 05/24/21 1303 Cetirizine Hcl (Zyrtec) 10 Mg Tablet, 1 TAB PO DAILY for allergy, #30 Ref 2 (Reported) Entered as Reported by: Irene Hodge on 05/23/21358 Last Action: Continued on 05/23/21600 by Irene Hodge Fluticasone Propionate (Fluticasone Propionate Nasal [place]) 16 Gm Cool[place].susp, 1 SPRAY NS DAILY, (Reported) Entered as Reported by: FEDERICO VOMASTIC on 07/01/14 0718 Last Action: Reviewed on 05/23/21358 by Irene Hodge Ibrutinib (Imbruvica) 140 Mg Capsule, 140 MG PO DAILY08 for CLL, (Reported) Entered as Reported by: Irene Hodge on 05/23/21358 Last Action: New Order on 05/23/21358 by Irene Hodge Levothyroxine Sodium (Levothyroxine) 75 Mcg Capsule, 75 MCG PO QM-F for hypothyroid, (Reported) Entered as Reported by: Irene Hodge on 05/23/21358 Last Action: Converted on 05/23/21600 by Irene Hodge Levothyroxine Sodium (Levothyroxine Sodium) 50 Mcg Tablet, 1 TAB PO QSASU for hypothyroid, #30 Ref 5 (Reported) Entered as Reported by: Irene Hodge on 05/23/21358 Last Action: Continued on 05/23/21600 by Irene Hodge Lisinopril (Lisinopril) 40 Mg Tablet, 40 MG PO DAILY for FOR HYPERTENSION, #30 Ref 0 (Reported) Entered as Reported by: FEDERICO DEE on 07/01/14717 Last Action: Reviewed on 05/23/21358 by Irene Hodge Prednisone (Prednisone ) 10 Mg Tablet, 3 TAB PO DAILY for COPD for 30 Days, #90 Ref 0 Prescribed by: BLAKE VERA on 05/24/21 1303 Sertraline Hcl (Zoloft) 50 Mg Tablet, 50 MG PO DAILY for ANTI-DEPRESSANT, Ref 0 (Reported) Entered as Reported by: FEDERICO DEE on 07/01/14717 Last Action: Reviewed on 05/23/21358 by Irene Hodge Vitamin E Acetate (Vitamin E) 1,000 Unit Capsule, 1 CAP PO DAILYWBKFT for supplement for 30 Days, #30 Ref 0 (Reported) Entered as Reported by: Irene Hodge on 05/23/21358 Last Action: Converted on 05/23/21600 by Irene Hodge Scheduled PRN Hydrocodone Bit/Acetaminophen (Hydrocodone-Apap 5-325 ) 1 Each Tablet, 1 TAB PO Q4HRS PRN for PAIN, Ref 0 (Reported) Entered as Reported by: FEDERICO DEE on 07/01/14717 Last Action: Reviewed on 05/23/21358 by Irene Hodge Discontinued Medications Amlodipine Besylate (Amlodipine Besylate) 10 Mg Tablet, 10 MG PO DAILY, (Reported) Entered as Reported by: GUS DOWNEY on 10/16/16 6784 Last Action: Discontinued on 05/23/21358 by Irene Hodge Celecoxib (Celebrex) 200 Mg Capsule, 200 MG PO DAILY for 30 Days, Ref 0 (Reported) Entered as Reported by: FEDERICO DEE on 07/01/14717 Last Action: Discontinued on 05/23/21358 by Irene Hodge Cyclobenzaprine Hcl (Cyclobenzaprine Hcl) 10 Mg Tablet, 10 MG PO TID, (Reported) Entered as Reported by: FEDERICO DEE on 07/01/14 0718 Last Action: Discontinued on 05/23/21358 by Irene Hodge Oxycodone/Apap 5-325 (Percocet 5-325 Mg Tablet ) 1 Each Tablet, 1-2 EACH PO PRN TID PRN for PAIN, #12 pain Prescribed by: KENDAL REZA MD on 05/07/19931 Last Action: HELD on 05/22/211915 by DOMINGA DUDLEY MD Patient Instructions Patient Instructions face to face 34 minutes total Justicifation of Admission Dx: Justifications for Admission: Justification of Admission Dx: Yes BLAKE VERA MD May 24, 2021 13:06
--- NOTE | 2021-05-24 15:40 | NUR ---
SS following up with discharge planning. SS reviewed pt chart and discussed with pt RN. Pt is currently requiring oxygen at two liters nasal canula. COVID19 negative. Six minute walk completed. Script received for oxygen and sent with clinical to [facility], ; [facility] [phone]. Oxygen tank provided for home. Discharge order on the chart for home with self care.
[2021-05-26] MEDS ORDERED: LEVOTHYROXINE 50 MCG TABLET PO SCH (07:00)
[2021-05-28 20:20] LABS: ANA INTERP Negative (.)
== END 2021-05-24 16:22 | disposition home or self-care (01) | DRG 871 ==
LOC: ER 13:41 → 5 NORTH 19:34
PROVIDERS: ADMIT Student in an Organized Health Care Education/Training Program; ATTEND Student in an Organized Health Care Education/Training Program
DX: A41.9 Sepsis, unspecified organism (principal); J96.01 Acute respiratory failure with hypoxia; J84.114 Acute interstitial pneumonitis; C91.10 Chronic lymphocytic leukemia of B-cell type not having achieved remission; E03.9 Hypothyroidism, unspecified; E11.9 Type 2 diabetes mellitus without complications; E78.00 Pure hypercholesterolemia, unspecified; E78.5 Hyperlipidemia, unspecified; G89.29 Other chronic pain; I11.0 Hypertensive heart disease with heart failure; I50.9 Heart failure, unspecified; J45.909 Unspecified asthma, uncomplicated; J84.89 Other specified interstitial pulmonary diseases; Z79.891 Long term (current) use of opiate analgesic; Z90.710 Acquired absence of both cervix and uterus; Z95.0 Presence of cardiac pacemaker; F32.A Depression, unspecified; F41.9 Anxiety disorder, unspecified; K57.90 Diverticulosis of intestine, part unspecified, without perforation or abscess without bleeding; M19.90 Unspecified osteoarthritis, unspecified site
CPT/HCPCS: 36415; 71045; 71250; 80053; 83605; 83735; 83880; 84484; 85025; 85379; 85651; 86038; 86140; 87040; 87428; 93005; 94618; 96374; J0696; J1644; J1940; U0003; 97530-GP; 97535-GO; 99285-25; G0378